=== PATIENT | male | born 1940 | race Caucasian/White ===

== ENCOUNTER 2016-05-15 07:24 | Day surgery (SDC) | payer MEDICARE ==
[~2016-05-15] VITALS: Ht 182.9 cm; Wt 76.7 kg
[~2016-05-15 07:24] MED LIST: ACETAMINOPHEN325 MG PO; BAYER CHEWABLE81 MG PO; CARDURA4 MG PO; CORDARONE200 MG PO; FLOMAX0.4 MG PO; FLORASTOR250 MG PO; GLUCOTROL ER2.5 MG PO; LOPRESSOR25 MG PO; MAG-OX 400 MG400 MG PO; NORVASC5 MG PO; OMNICEF300 MG PO; PACERONE200 MG PO; PREDNISONE10 MG PO; PREDNISONE20 MG PO; PREDNISONE50 MG PO; PROTONIX40 MG PO; PULMICORT0.5 MG/21 UPD; RENVELA0.8 GM PO; VITAMIN B-1000 MCG/M SC; VITAMIN B-1000 MCG/M SQ; VITAMIN D10000 UNI1 PO
[2016-05-15 08:27] LABS: BASOPHILS 0.2 % (0.0-2.0); EOSINOPHILS 3.9 % (0-7); HEMATOCRIT 40.3 % (42.0-54.0); IMMATURE GRANULOCYTES 0.3 % (0-5); LYMPHOCYTES 27.9 % (15-50); MCH 30.4 pg (26.0-34.0); MCHC 32.3 g/dL (31.0-37.0); MCV 94.2 fL (80.0-100.0); MEAN PLATELET VOLUME 9.3 fL (7.4-10.4); MONOCYTES 11.1 % (2-11); NEUTROPHILS 56.6 % (40-80); RBC 4.28 10x6/uL (4.20-6.10); RDW 14.5 % (11.5-14.5); WBC 9.5 10x3/uL (4.8-10.8)
[2016-05-15 08:28] LABS: PLATELET COUNT 254 10x3/uL (130-400)
[2016-05-15 08:43] LABS: INR 0.94 (0.85-1.17); PROTIME 12.4 SECONDS (11.6-15.0)
[2016-05-15 08:44] LABS: APTT 29.9 SECONDS (22.8-39.4)
[2016-05-15 08:52] LABS: CALCIUM 9.4 mg/dL (8.5-10.1); CARBON DIOXIDE 28.4 mmol/L (21.0-32.0); CREATININE - SERUM 5.2 mg/dL (0.6-1.3); POTASSIUM - SERUM 4.4 mmol/L (3.5-5.1)
[2016-05-15] MEDS ORDERED: RENVELA800 MG PO (12:29)
[2016-05-15 12:36] VITALS: BP 107/71; Ht 182.9 cm; Wt 76.7 kg
[2016-05-15] MEDS ORDERED: ULTRAM50 MG PO (17:27)
--- NOTE | 2016-05-15 17:33 | NUR ---
DR VILLELA ADVISED THE PATIENT COULD BE A SHORT STAY HE HAD A BLOCK AND WAS MAC ANESTHESIA
--- NOTE | 2016-05-17 07:35 | OP ---
PATIENT NAME: FABIEN DOWNEY MEDICAL RECORD: [id number] :38 LOCATION:[facility] ADMISSION DATE: SURGEON: JED NOEL MD DATE OF OPERATION: 05/15/2016 REFERRING PHYSICIAN: Dr. Zion Alcaraz. PREOPERATIVE DIAGNOSIS: End-stage renal disease, on dialysis. POSTOPERATIVE DIAGNOSIS: End-stage renal disease, on dialysis. OPERATION PERFORMED: Implantation of a right forearm loop Propaten PTFE AV graft 6-7 mm in diameter with a lumen reduction near the arterial anastomosis with a Hemoclip in order to reduce flow in the graft improving flow to the hand. SURGEON: Jed Noel MD. ANESTHESIA: Regional nerve block plus MAC per Dr. Machado and BACKER UP. PREOPERATIVE NOTE: Mr. Downey is a 75-year-old white male patient with end-stage renal disease, who requires dialysis access for long-term. He is brought to the ER this time to most likely implant a graft. Under axillary block and MAC in supine position, the patient was prepped and draped in a sterile manner. I examined him with an ultrasound device while using a proximal venous tourniquet and after application of nitroglycerin ointment topically, he had a very suitable basilic vein at the antecubital space and in the upper arm and I elected to put in a forearm loop PTFE graft. A transverse antecubital incision was made and the brachial artery and the basilic vein were each exposed and controlled with Silastic loops. The vein was opened, flushed with heparinized saline and a Propaten PTFE along graft of 4-mm up to 7-mm and 80 cm in length was chosen due to a lack of inventory. The venous end was beveled and anastomosed end-to-side to the vein with continuous running 7-0 Prolene after heparin flushing the vein. A counterincision was made distally on the forearm and the graft was placed in a subcutaneous looping tunnel and brought back to the antecubital space where it was shortened, cutting it in an area about 6 mm in diameter. It was bevelled and the artery occluded and opened, flushed with heparinized saline proximally and distally and the anastomosis then performed with continuous running 6-0 Prolene. When completed, both anastomoses were sealed with Evicel and when the occluding loops and clamps were released, excellent flow immediately developed within the fistula. Flow to the radial artery and hand; however, was considerably diminished when the graft was opened and I reduced the lumen of the graft near the arterial anastomosis with the application of a single size medium titanium Hemoclips. This significantly increased the radial artery pulsatile flow signal well, excellent continuous pulsatile flow was maintained within the graft. The wounds were irrigated and infiltrated with 0.25% Marcaine without epinephrine and closed with interrupted inverted 3-0 Vicryl and running intracuticular 4-0 Monocryl and Dermabond glue. They were dressed with Maxorb Ag, Tegaderm and Cavilon skin prep. The patient was then awakened and taken to the recovery room in stable condition. Blood loss was insignificant and unreplaced. All sponges, instruments and needles were accounted for. No drain was used and no surgical specimen was submitted for histopathology. OPERATIVE REPORT [id number] FABIEN DOWNEY I have the patient to return to see me in my office next week until then he is to leave the original operative dressing intact with continuous home medications, elevate his arm and generally resume his diet and activities as tolerated. I have left a prescription for ten 50 mg of Toradol tablets. He may take 1 p.o. q.4 hours p.r.n. pain for which plain Tylenol proves inadequate. TRANSINT:[id number] Voice Confirmation ID: [id number] DOCUMENT ID: [id number] JED NOEL MD at 0735 CC: ZION ALCARAZ MD [id number] DICTATION DATE: 05/15/16 1737 LINEN ROOM HOUSEPERSON: 05/16/16 0051 [facility] 05/15/[id number] [place] [address]
== END 2016-05-15 18:45 | disposition home or self-care (01) ==
LOC: D.OPS 07:24
PROVIDERS: Surgery
DX: N18.6 End stage renal disease (principal); Z79.01 Long term (current) use of anticoagulants; E11.9 Type 2 diabetes mellitus without complications

== ENCOUNTER 2016-10-13 06:26 | Day surgery (SDC) | payer MEDICARE ==
[~2016-10-13] VITALS: Ht 182.9 cm; Wt 81.8 kg
--- NOTE | ~2016-10-13 | OP ---
PATIENT NAME: FABIEN DOWNEY MEDICAL RECORD: [id number] :38 LOCATION:.[facility] ADMISSION DATE: SURGEON: JED NOEL MD DATE OF OPERATION: 10/13/2016 REFERRING PHYSICIAN: Steven Collazo MD PREOPERATIVE DIAGNOSES: End-stage renal disease, dependence on hemodialysis, and thrombosed left forearm loop PTFE AV graft. POSTOPERATIVE DIAGNOSES: End-stage renal disease, dependence on hemodialysis, and thrombosed left forearm loop PTFE AV graft with thrombosis secondary to venous anastomotic stenosis. OPERATIONS PERFORMED: Percutaneous fistulogram with mechanical thrombectomy with AngioJet, angioplasty balloon clot maceration, balloon angioplasty of venous anastomotic stenosis, selective left brachial arteriogram, and open brachial artery embolectomy. SURGEON: Jed Noel MD ANESTHESIA: General with LMA per SHIPPING HAND. PREOPERATIVE NOTE: Mr. Downey is a very nice 75-year-old white female patient from [place] with end-stage renal disease. He has a recently implanted and now thrombosed left forearm loop PTFE graft. He is taken to the operating room for fistulogram and mechanical thrombolysis and hopefully graft salvage. DESCRIPTION OF PROCEDURE: Under general anesthesia, in supine position, the patient was prepped and draped in sterile manner. The graft was accessed in opposing directions along the venous limb, initially with micropuncture technique and eventually two 6-Lib[place] introducers were placed. Thrombus in the venous limb was lysed with the AngioJet. Contrast injection demonstrated venous anastomotic stenosis. This was dilated successfully with an 8-mm angioplasty balloon. Repeated contrast injection revealed satisfactory result there. The angioplasty balloon was then used to macerate thrombus along the body and arterial limb of the graft. The AngioJet catheter was used to remove the residual. An angled glide catheter was advanced across the arterial anastomosis over a Glidewire. Contrast injection demonstrated thrombus embolized to the brachial artery, just distal to the arterial anastomosis. A Kalpana embolectomy catheter was passed. Attempts to remove thrombus from the distal brachial artery were unsuccessful, although the arterial plug was removed from the arterial anastomosis. Good arterial inflow and flow in the graft was then noted. Several attempts to remove the thrombus from the distal brachial artery were unsuccessful including direct cannulation attempt above the level of the elbow. I subsequently made a transverse incision and exposed the arterial graft anastomosis. The vessels were controlled with loops and vascular clamps. The graft was opened just above the previous suture line and thrombus was removed from the brachial artery with Kalpana embolectomy catheter. Good backbleeding was established. With the patient being systemically heparinized, the graft was then closed with running 6-0 Prolene. Hemostasis was found to be adequate. The patient had been heparinized with 3000 units of heparin. This was not reversed at the end of the procedure. The wound was closed with interrupted 3-0 Vicryl and running intracuticular Monocryl and Dermabond glue. It was dressed with Maxorb Ag, Tegaderm, and Cavilon skin prep. The AV graft was then functioning OPERATIVE REPORT [id number] FABIEN DOWNEY margo. The patient was awakened and taken to recovery room in stable condition. Blood loss was insignificant, probably 10 cc to 15 cc, none was replaced. All sponges, instruments, and needles were accounted for. No drain was used. Mr. Downey will be discharged today and he will continue dialysis per his usual schedule. He will follow up with me in my office on 10/22. He will continue his same medications and is to also take Plavix 75 mg daily and is also given a prescription for [place] 5 mg (hydrocodone/acetaminophen) tablets one q. 4 hours p.r.n. pain. TRANSINT:[id number] Voice Confirmation ID: [id number] DOCUMENT ID: [id number] JED NOEL MD CC: [id number] DICTATION DATE: 10/23/16948 AUTO BODY SERVICE MECHANIC: 10/23/16 1403 [facility] 10/13/16 [facility] [address] [place] [address]
[~2016-10-13 06:26] MED LIST changes: +RENVELA800 MG PO; +ULTRAM50 MG PO
--- NOTE | 2016-10-13 07:23 | NUR ---
0712-RECEIVED TO ROOM VIA WHEELCHAIR, NPO BY MOUTH AT THIS TIME. WILL ADMIT.
[2016-10-13 07:36] LABS: BASOPHILS 0.3 % (0-2); EOSINOPHILS 5.4 % (0-7); HEMATOCRIT 41.6 % (42.0-54.0); HEMOGLOBIN 13.3 g/dL (13.5-17.5); IMMATURE GRANULOCYTES 0.1 % (0-5); LYMPHOCYTES 21.4 % (15-50); MCH 32.1 pg (26.0-34.0); MCV 100.5 fL (80.0-100.0); MEAN PLATELET VOLUME 9.4 fL (7.4-10.4); MONOCYTES 11.8 % (2-11); PLATELET COUNT 217 10x3/uL (130-400); RBC 4.14 10x6/uL (4.20-6.10); WBC 7.6 10x3/uL (4.8-10.8)
[2016-10-13] MEDS ORDERED: LANOXIN125 MCG PO (07:47)
[2016-10-13] MEDS ORDERED: SYNTHROID75 MCG PO (07:49)
[2016-10-13 07:50] LABS: ANION GAP 24.1 mmol/L (8-16); CALCIUM 8.9 mg/dL (8.5-10.1); CARBON DIOXIDE 19.5 mmol/L (21.0-32.0); CREATININE - SERUM 9.7 mg/dL (0.6-1.3); POTASSIUM - SERUM 4.6 mmol/L (3.5-5.1)
[2016-10-13] MEDS ORDERED: FLOMAX0.4 MG PO (07:50)
[2016-10-13 08:12] VITALS: BP 144/72; BMI 24.5
[2016-10-13 08:12] LABS: INR 0.98 (0.85-1.17); PROTIME 12.8 SECONDS (11.6-15.0)
--- NOTE | 2016-10-13 08:29 | NUR ---
MED REC DONE. IV STARTED IN LEFT FOREARM WITH 20 G [address] ATTEMPT. ONLY ORDERS ARE FOR CONSULT WITH DR. NOEL. ATTEMPTED DR. NOEL'S CELL PHONE-NO ANSWER. HIS OFFICE NOTIFIED AND SPOKE TO TAMIA HIS NURSE. SHE WILL TEXT HIM AND HAVE HIM VISIT THE PT. PT REMAINS NPO. PT AND FAMILY INFORMED OF DR. NOEL'S VISIT. BOTH UNDERSTAND.
--- NOTE | 2016-10-13 09:27 | HP ---
PATIENT: FABIEN DOWNEY MEDICAL RECORD: [id number] ACCOUNT: [id number] LOCATION:[address] : 38 ADMISSION DATE: 10/13/16 HISTORY AND PHYSICAL EXAMINATION REASON FOR ADMISSION: Clotted AV graft. HISTORY OF PRESENT ILLNESS: This 75-year-old gentleman, who had a mechanical thrombectomy on September 14. It was a difficult procedure and difficult to sedate this gentleman and he is already clotted his graft again. He was not able to dialyze, 10/12/2016. I spoke with Dr. Maldonado. He is going to have the procedure performed as an inpatient for pain control as well as he may need IV access, may need an AV graft revision. REVIEW OF SYSTEMS: No shortness of breath, nausea, vomiting, or diarrhea. All review of systems are negative. PAST MEDICAL HISTORY: 1. ANCA crescentic glomerulonephritis with ANCA vasculitis, received 2 doses of Rituxan and prednisone. He has been on dialysis 3 days a week. 2. ESRD, on dialysis with near anuria. 3. Type 2 diabetes. 4. Hypertension. 5. Anemia of chronic disease. 6. Atrial fibrillation. 7. GERD. PAST SURGICAL HISTORY: Hemosplit catheter. FAMILY HISTORY: Noncontributory. SOCIAL HISTORY: He is , retired, lives with his and has good support. ALLERGIES: NKDA. PHYSICAL EXAMINATION: VITAL SIGNS: Blood pressure 132/72, 72 heart rate. GENERAL: He is alert and oriented times 3. HEENT: Normocephalic, atraumatic. Clear nares. Clear throat. NECK: No thyromegaly or JVD. CHEST: Irregular rhythm, S1 and S2, mild decreased breath sounds at his bases. EXTREMITIES: He has a right arm access with a clotted AV graft. ASSESSMENT AND PLAN: 1. Admit for AV graft, mechanical thrombectomy with Dr. Maldonado. 2. End-stage renal disease. 3. Appreciate Dr. Maldonado. TRANSINT:[id number] Voice Confirmation ID: [id number] DOCUMENT ID: [id number] HISTORY AND PHYSICAL [id number] FABIEN DOWNEY, ANIYA JONES at 0927 CC: [id number] DICTATION DATE: 10/12/16 1315 CANE FEEDER: 10/12/16 1354 ADM IN [facility] [address] [id number]
--- NOTE | 2016-10-13 09:39 | NUR ---
EKG DONE AND JOP PERMITS SIGNED.
[2016-10-13 10:29] VITALS: Ht 182.9 cm; Wt 81.8 kg
--- NOTE | 2016-10-13 10:40 | NUR ---
1040-TO OR VIA BED.
--- NOTE | 2016-10-13 12:15 | NUR ---
STILL OUT OF ROOM AT THIS TIME.
[2016-10-13] MEDS ORDERED: HYDROCODON-ACE1 EAC7 PO (15:02)
[2016-10-13] MEDS ORDERED: PLAVIX75 MG PO (15:03)
[2016-10-13 15:25] VITALS: BP 133/65
--- NOTE | 2016-10-13 15:28 | NUR ---
1530-RETURNS FROM RECOVERY ROOM ON 4L PER NC. STILL FEELING THE EFFECTS OF MEDS FROM SURGERY. WILL MONITOR.
--- NOTE | 2016-10-13 15:52 | NUR ---
POC GLUCOSE CHESKED PATIENT IS SHAKING. RESULT IS 59. JUSTINO CRACKERS, PEANUT BUTTER AND MILK GIVEN. PATIENT IS ALERT.
--- NOTE | 2016-10-13 16:12 | NUR ---
PATIENT IS RESTING QUITELY, NO SHAKING SEEN. FINISHED 2 CONTAINERS OF MILK, JUSTINO CRACKERS AND PEANUT BUTTER. STATES THAT HE IS FEELING BETTER.
--- NOTE | 2016-10-13 16:36 | NUR ---
I ADVISED PT AND SPOUSE THAT DR. NOEL WOULD TRY TO MAKE IT OVER TO SEE THEM PRIOR TO DISCHARGE IF HE FINISHES PROCEDURES. I ALSO ADVISED PT AND SPOUSE TO GO TO DIALYSIS TOMORROW PER DR. NOEL.
--- NOTE | 2016-10-13 17:06 | NUR ---
EATING SUPPER WITH 'S HELP. OXYGEN DECREASED TO 2L PER NC PATIENT DOES NOT WEAR IT AT HOME. WILL CONTINUE TO MONITOR VITAL SIGNS.
--- NOTE | 2016-10-13 17:11 | NUR ---
COPY OF WRITTEN/PRINTER OF NORCO 5/325 MG # 10 WITH NO REFILLS, TO TAKE 1 TAB EVERY 4 HOURS NEEDED FOR PAIN PLACED IN CHART. ORGINAL PLACED IN PATIENT PACKET TO BE GIVEN AT DISCHARGE.
--- NOTE | 2016-10-13 17:25 | NUR ---
O2 SAT IS 91 % ON 2L PER NC. ENCOURGED TO COUGH AND DEEP. WILL CONTINUE TO MONITOR.
--- NOTE | 2016-10-13 17:51 | NUR ---
SITTING ON SIDE OF BED, STILL ON 2L PER NC. NOW O2 SAT IS 99%. PLACED ON ROOM AIR AND WILL MONITOR IN 30 MIN.
--- NOTE | 2016-10-13 18:48 | NUR ---
1837-SALINE LOCK REMOVED WITH CATH TIP INTACT. VERBAL AND WRITTEN DISCHARGE INSTRUCTION GIVEN TO PATIENT AND . DISCHARGED HOME VIA WHEELCHAIR.
[2016-10-22] MEDS ORDERED: PROBIOTIC1 EAC1 PO (14:21)
== END 2016-10-13 18:49 | disposition home or self-care (01) ==
LOC: OBSVTIME → D.OPS 06:26 → D.M2 06:26 → D.SDCHOLD 06:26 → UNDOADMOB 06:26 → D.M2 07:06 → D.SDCHOLD 07:06 → EDSTATUS 11:00 → D.M2 18:49 → D.OPS 18:49
PROVIDERS: Internal Medicine Nephrology
DX: T82.868A Thrombosis due to vascular prosthetic devices, implants and grafts, initial encounter (principal); E11.22 Type 2 diabetes mellitus with diabetic chronic kidney disease; N18.6 End stage renal disease; Z99.2 Dependence on renal dialysis; E03.9 Hypothyroidism, unspecified; Z87.891 Personal history of nicotine dependence; I48.91 Unspecified atrial fibrillation; Z01.812 Encounter for preprocedural laboratory examination

== ENCOUNTER 2016-10-23 05:24 | Day surgery (SDC) | payer MEDICARE ==
[2016-10-22 14:58] LABS: BASOPHILS 0.6 % (0-2); EOSINOPHILS 4.8 % (0-7); HEMATOCRIT 43.3 % (42.0-54.0); HEMOGLOBIN 13.5 g/dL (13.5-17.5); IMMATURE GRANULOCYTES 0.3 % (0-5); LYMPHOCYTES 26.4 % (15-50); MCH 31.5 pg (26.0-34.0); MCHC 31.2 g/dL (31.0-37.0); MCV 101.2 fL (80.0-100.0); MEAN PLATELET VOLUME 9.6 fL (7.4-10.4); MONOCYTES 11.3 % (2-11); NEUTROPHILS 56.6 % (40-80); RBC 4.28 10x6/uL (4.20-6.10); WBC 8.7 10x3/uL (4.8-10.8)
[2016-10-22 15:02] LABS: PLATELET COUNT 274 10x3/uL (130-400)
[2016-10-22 15:04] LABS: APTT 30.1 SECONDS (22.8-39.4); INR 0.93 (0.85-1.17); PROTIME 12.3 SECONDS (11.6-15.0)
[2016-10-22 15:10] LABS: ANION GAP 14.8 mmol/L (8-16); CALCIUM 9.3 mg/dL (8.5-10.1); CARBON DIOXIDE 29.5 mmol/L (21.0-32.0); CREATININE - SERUM 7.1 mg/dL (0.6-1.3); POTASSIUM - SERUM 4.3 mmol/L (3.5-5.1)
[~2016-10-23] VITALS: Ht 182.9 cm; Wt 81.6 kg
--- NOTE | ~2016-10-23 | OP ---
PATIENT NAME: FABIEN DOWNEY MEDICAL RECORD: [id number] :38 LOCATION:[facility] ADMISSION DATE: SURGEON: JED NOEL MD DATE OF OPERATION: 10/23/2016 REFERRED BY: Aniya Winchester MD PREOPERATIVE DIAGNOSES: Recurrent thrombosis of recently implanted left forearm PTFE loop arteriovenous graft. POSTOPERATIVE DIAGNOSES: Recurrent thrombosis of recently implanted left forearm PTFE loop arteriovenous graft secondary to recurrent elastic venous anastomotic stenosis. OPERATION PERFORMED: Fistulogram with AngioJet mechanical thrombolysis and balloon angioplasty demonstrating recurrent elastic stenosis at the venous anastomosis, stenting with a 7 mm x 5 cm Viabahn PTFE self-expanding stent and a left brachial arteriogram, pre and post thrombectomy to eliminate the potential diagnosis of arterial embolism and arterial anastomotic stenosis. SURGEON: Jed Noel MD ANESTHESIA: General with LMA per RACE BOARD ATTENDANT. PREOPERATIVE NOTE: Mr. Downey is a very nice 75-year-old white male patient with end-stage renal disease, on chronic hemodialysis due to vasculitis. He is also diabetic and hypertensive patient. I recently operated him and implanted a left forearm loop PTFE graft, which thrombosed early and he was returned to the operating room only about a week or 10 days ago and had a mechanical thrombolysis procedure with angioplasty of the venous anastomosis. He had dialysis as recently as day before yesterday, been seen in my office for routine postoperative visit yesterday. I had thrombosed his graft. He is returned to the operating room now to perform yet another angiogram and hopefully salvage the access. He may require a tunneled dialysis catheter. Under general anesthesia in supine position, the patient was prepped and draped in sterile manner. The left arm graft was accessed twice in opposing directions along the venous limb of the loop graft, initially a 6-Citizen [place] introducer was inserted with micropuncture initiation technique later to facilitate stenting. An 8-Citizen [place] introducer was used replacing a single 6-[place]izen [place] introducer. The AngioJet was used to lyse thrombus in the venous limb and the anastomosis and outflow tract. The patient was given 3000 units of heparin systemically and contrast injection then revealed a recurrent venous anastomotic stenosis. This was subsequently dilated with an 8 mm diameter noncompliant balloon, which expanded to full effacement with very minimal pressures, repeated contrast injection that revealed a recurrent or persistent 80% elastic type stenosis in the vein or at the venous anastomosis. I then extended this with a 7-mm diameter 5 cm long Viabahn stent and repeated contrast injection showed no residual stenosis. The AngioJet was then used to remove thrombus from the body and arterial limb of the graft, an over the wire 5.5 Citizen [place] Kalpana embolectomy catheter was utilized to remove the arterial plug. A Glidewire was first though inserted and passed across the arterial anastomosis and a glide catheter inserted and passed up into the proximal brachial artery. Contrast injection was performed, which revealed good flow into the forearm with both radial and ulnar arteries were patent and no filling defects. Note, the patient did have a OPERATIVE REPORT [id number] FABIEN DOWNEY problem last time with brachial artery embolization, which required open thrombectomy. There was no sign of any flow impairment today. The angiogram was repeated after the thrombectomy was done. This revealed good flow in the brachial artery without persistence though diminished flow in the distal brachial artery and good flow in the graft without any arterial anastomotic stenosis. The graft now functioning well. The ports were removed and hemostasis was obtained with [id number] 4-0 Prolene sutures and direct pressure dressings of Avitene Ultrafoam, Tegaderm, and Cavilon skin prep were applied and the patient awakened and taken to the recovery room with a good thrill and bruit over the graft and a well vascularized hand. PLAN for Mr. Downey to go home today and to resume his usual dialysis schedule, home medications and diet. I considered, but did not place him on Plavix daily, but will see him back in my office next week. TRANSINT:[id number] Voice Confirmation ID: [id number] DOCUMENT ID: [id number] JED NOEL MD CC: ANIYA WINCHESTER MD [id number] DICTATION DATE: 10/23/16932 EQUIPMENT MONITOR PHOTOTYPESETTING: 10/23/16 1200 [facility] [address] [place] [address]
[~2016-10-23 05:24] MED LIST changes: +HYDROCODON-ACE1 EAC7 PO; +LANOXIN125 MCG PO; +PLAVIX75 MG PO; +PROBIOTIC1 EAC1 PO; +SYNTHROID75 MCG PO
[2016-10-23 06:14] VITALS: BP 112/77; Ht 182.9 cm; Wt 81.6 kg
--- NOTE | 2016-10-23 16:29 | NUR ---
1100--IV DC'D, PT UP TO DRESS. JUDD PERLA 1120--DISCHARGE INSTRUCTIONS GIVEN, PT VERBALIZES UNDERSTANDING. PT OFF UNIT VIA WC. JUDD PERLA
== END 2016-10-23 11:20 | disposition home or self-care (01) ==
LOC: D.OPS 05:24 → D.PAN 07:30 → D.OPS 07:30
PROVIDERS: Anesthesiology
DX: T82.868A Thrombosis due to vascular prosthetic devices, implants and grafts, initial encounter (principal); E11.22 Type 2 diabetes mellitus with diabetic chronic kidney disease; N18.6 End stage renal disease; E03.9 Hypothyroidism, unspecified; Z99.2 Dependence on renal dialysis; I48.91 Unspecified atrial fibrillation; Z01.812 Encounter for preprocedural laboratory examination

== ENCOUNTER → 2018-03-01 10:26 | Outpatient (CLI) | payer MEDICARE ==
[2016-10-23 06:14] VITALS: BMI 24.4
[~2018-03-01 10:26] MED LIST changes: +ELIQUIS2.5 MG PO
== END | disposition home or self-care (01) ==
LOC: D.RAD 10:26
DX: M25.551 Pain in right hip (principal)

== ENCOUNTER 2018-03-14 19:36 | Inpatient (IN) | payer MEDICARE ==
[~2018-03-14] VITALS: Ht 182.9 cm; Wt 80.7 kg
[~2018-03-14 19:36] MED LIST changes: -ELIQUIS2.5 MG PO
[2018-03-14 20:00] VITALS: BP 98/46
--- NOTE | 2018-03-14 20:20 | NUR ---
ARRIVED VIA WC, ESCORTED BY ER INDUSTRIAL DIAMOND POLISHER AND HIS . ALERT/ORIENTED X3. DENIES PAIN OR ANY NEEDS. SOME PICAYUNE NOTED. ENVIRONMENTAL RESTORATION PLANNER OBTAINED VS. TEMP 97.8, B/P 98/43. HR 93, RR 20, O2 SAT 97% ON 2L/NC. L ARM FISTULA WNL WITH POSITIVE BRUIT/THRILL. ORIENTED TO ROOM AND CALL LIGHT.
--- NOTE | 2018-03-14 20:20 | NUR ---
INFORMED DR SEGUNDO OF CONSULT VIA PHONE.
--- NOTE | 2018-03-14 21:25 | NUR ---
FINE WIRE DRAWER IN ROOM DRAWING BLOOD FOR LABS ORDERED.
[2018-03-14 21:44] LABS: BASOPHILS 0.3 % (0-2); EOSINOPHILS 0.3 % (0-7); HEMATOCRIT 33.5 % (42.0-54.0); HEMOGLOBIN 11.1 g/dL (13.5-17.5); IMMATURE GRANULOCYTES 0.3 % (0-5); MCH 31.8 pg (26.0-34.0); MCHC 33.1 g/dL (31.0-37.0); MEAN PLATELET VOLUME 9.2 fL (7.4-10.4); MONOCYTES 12.9 % (2-11); NEUTROPHILS 71.2 % (40-80); RBC 3.49 10x6/uL (4.20-6.10); RDW 13.3 % (11.5-14.5); WBC 7.6 10x3/uL (4.8-10.8)
[2018-03-14 21:47] LABS: PLATELET COUNT 202 10x3/uL (130-400)
[2018-03-14 22:04] LABS: ALBUMIN 2.9 g/dL (3.4-5.0); ANION GAP 14.6 mmol/L (8-16); BILIRUBIN - TOTAL 0.93 mg/dL (0.2-1.3); CALCIUM 7.8 mg/dL (8.5-10.1); CARBON DIOXIDE 26.7 mmol/L (21.0-32.0); CREATININE - SERUM 5.3 mg/dL (0.6-1.3); POTASSIUM - SERUM 3.3 mmol/L (3.5-5.1); PROTEIN - SERUM 7.4 g/dL (6.4-8.2)
--- NOTE | 2018-03-14 23:00 | NUR ---
IV SITED IN LEFT FA WITH 2OG. IVF STARTED PER ORDER.
[2018-03-15] VITALS (7 sets, daily range): BP systolic 98–136; BP diastolic 46–85; Ht 182.9 cm; Wt 80.7 kg
[2018-03-15] MEDS ORDERED: ELIQUIS2.5 MG PO (04:01)
--- NOTE | 2018-03-15 06:00 | NUR ---
OBTAIN URINE SAMPLE FOR LAB ORDERED.
--- NOTE | 2018-03-15 06:30 | NUR ---
URINE SAMPLE TAKEN TO LAB BY ANOTHER NURSE.
[2018-03-15 08:57] LABS: APPEARANCE CLOUDY (CLEAR); BILIRUBIN 2+ (NEGATIVE); COLOR DK YELLOW (YELLOW); GLUCOSE 100 mg/dL (NEGATIVE); KETONE NEGATIVE (NEGATIVE); NITRITE NEGATIVE (NEGATIVE); PROTEIN 2+ mg/dL (NEGATIVE); SPECIFIC GRAVITY 1.015 (1.005-1.020); UROBILINOGEN NORMAL (NORMAL)
[2018-03-15 08:59] LABS: BACTERIA MODERATE /hpf (NONE SEEN); EPITHELIAL CELLS OCC /hpf (0-5); GRANULAR CAST OCC /lpf (NONE SEEN); HYALINE CAST RARE /lpf (NONE SEEN); RED CELLS - URINE 0-5 /hpf (0-5); WHITE CELLS - URINE >50 /hpf (0-5); YEAST >1+ WITH HYPHAE /hpf (NONE SEEN)
--- NOTE | 2018-03-15 18:16 | HP ---
PATIENT: FABIEN DOWNEY MEDICAL RECORD: [id number] ACCOUNT: [id number] LOCATION:[address] : 38 ADMISSION DATE: 03/15/18 PCP: CORBY BATEMAN DO HISTORY AND PHYSICAL EXAMINATION HISTORY: Mr. Downey is a 77-year-old white male that presents to the office today with fever of 103. Family reports he has just not been feeling well for the last week or two. He is a dialysis patient, and when he got out of dialysis today, his family brought him here to [place] to be seen here in the office. He has a fever of 103. He looks moderately ill. His chest x-ray reveals no definite infiltrates. His flu test is negative. His white count is 7 with 80% neutrophils. I am unable to get a urine specimen today, but due to his other medical complications and fever of 103, he is going to require hospitalization. Orders are with the patient. PAST MEDICAL HISTORY: Significant for end-stage renal disease. His ancillary services manager is Dr. Collazo. He dialyzes on Mondays, Wednesdays, and Fridays. He has got type 2 diabetes, hyperlipidemia, and osteoarthritis. PAST SURGICAL HISTORY: Previous surgeries include venous access for dialysis. ALLERGIES: None known. HOME MEDICATIONS: Include levothyroxine 100 mcg a day, sevelamer carbonate 800 three tablets 3 times a day, Eliquis 2.5 twice a day, glipizide ER one tablet twice a day, digoxin 125 mcg daily, tizanidine 4 mg p.r.n., pantoprazole 40 mg daily, Plavix 75 mg a day, tamsulosin 0.4 daily, and tramadol p.r.n. FAMILY HISTORY: Noncontributory. SOCIAL HISTORY: The patient is . He does not smoke and does not drink. REVIEW OF SYSTEMS: He is a little confused this afternoon. reports cough and fever that started yesterday. He has had increasing weakness over the last week and has required assistance on getting up. PHYSICAL EXAMINATION: VITAL SIGNS: His height is 5 feet 6 inches and weight is 168. BP is 152/88. His initial pulse ox on room air is 87%. It went up to 93% with oxygen. Pulse is 130 and respirations are 12. GENERAL: An elderly, chronically ill-appearing male, who is in a wheelchair at this time. He is very conversant, but really does not make much sense. He is in no apparent distress at this time. HEENT: Sclerae are nonicteric. Mucous membranes are moist. HEART: Regular and tachy. LUNGS: Relatively clear. ABDOMEN: Soft. EXTREMITIES: Lower extremities reveal no edema. IMPRESSION: 1. Febrile illness with fever of 103. 2. Hypoxia with 87% pulse ox on room air and negative chest x-ray, negative flu, normal white count. 3. History of UTIs in the past. UA is pending. 4. End-stage renal disease, on dialysis. HISTORY AND PHYSICAL [id number] FABIEN DOWNEY 5. Diabetes. 6. Hyperlipidemia. 7. Osteoarthritis. PLAN: Admit. We will get blood cultures and urine cultures, and start Levaquin 750 q. 48. Consult his ancillary services manager, Dr. Collazo, for further care. Other labs are drawn. I have switched over to a sliding scale for now. See orders for rest of plan. TRANSINT:[id number] Voice Confirmation ID: [id number] DOCUMENT ID: [id number] CORBY BATEMAN DO at 1816 CC: [id number] DICTATION DATE: 03/14/18 1755 SPACE AND MISSILE OPERATIONS: 03/14/18 1829 ADM IN [address] [id number] [place] [address]
--- NOTE | 2018-03-15 19:25 | NUR ---
PT LAYING IN BED ALERT AND ORIENTED RESPIRATIONS EVEN AND UNLABORED. PT AT BEDSIDE. PT USES WALKER TO AMBULATE. BED LOW CALL LIGHT WITHIN REACH WILL CONTINUE TO MONITOR.
--- NOTE | 2018-03-15 20:30 | NUR ---
PT SITTING UP ON THE SIDE OF BED COMPLAINING OF 8/10 PAIN IN LOWER BACK. PT REQUEST TYLENOL FOR PAIN. AT BEDSIDE.
[2018-03-16] VITALS: BP 96/44
--- NOTE | 2018-03-16 03:17 | NUR ---
PT RESTING IN BED WITH EYES CLOSED RESPIRATIONS EVEN AND UNLABORED. BED LOW CALL LIGHT WITHIN REACH, AT BEDSIDE. WILL CONTINUE TO MONITOR.
--- NOTE | 2018-03-16 03:38 | NUR ---
PT RESTING IN BED, ALERT. FAMILY AT BEDSIDE. PT ON 2L O2 NC. HAS D5NS INFUSING AT 50, PT IS [place], DENIES ANY NEEDS. NO S/S OF DISTRESS. PT WILL CALL FOR ASSIST WHEN NEEDED. WILL CPOC
--- NOTE | 2018-03-16 03:40 | NUR ---
PT RESTING IN BED WITH EYES CLOSED. RR-EVEN AND UNLABORED. FAMILY AT BEDSIDE. BED LOW CALL LIGHT WITHIN REACH. WILL CONTINUE TO MONITOR.
[2018-03-16 04:00] VITALS: BP 126/45
[2018-03-16 06:14] LABS: BASOPHILS 0.2 % (0-2); EOSINOPHILS 3.2 % (0-7); HEMATOCRIT 29.4 % (42.0-54.0); HEMOGLOBIN 9.5 g/dL (13.5-17.5); LYMPHOCYTES 17.3 % (15-50); MCH 30.8 pg (26.0-34.0); MCHC 32.3 g/dL (31.0-37.0); MCV 95.5 fL (80.0-100.0); MEAN PLATELET VOLUME 9.1 fL (7.4-10.4); MONOCYTES 14.7 % (2-11); NEUTROPHILS 64.6 % (40-80); PLATELET COUNT 175 10x3/uL (130-400); RBC 3.08 10x6/uL (4.20-6.10); RDW 13.3 % (11.5-14.5)
[2018-03-16 06:23] LABS: ALBUMIN 2.4 g/dL (3.4-5.0); ANION GAP 17.4 mmol/L (8-16); BILIRUBIN - TOTAL 0.46 mg/dL (0.2-1.3); CALCIUM 7.9 mg/dL (8.5-10.1); CARBON DIOXIDE 23.8 mmol/L (21.0-32.0); POTASSIUM - SERUM 3.2 mmol/L (3.5-5.1); PROTEIN - SERUM 6.5 g/dL (6.4-8.2)
[2018-03-16 06:25] LABS: CREATININE - SERUM 7.2 mg/dL (0.6-1.3)
--- NOTE | 2018-03-16 07:36 | NUR ---
REPORT RECEIVED. WILL CONTINUE WITH POC. PT CURRENTLY SITTING ON EDGE OF BED. CALL LIGHT W/I REACH. AT BEDSIDE. PT IS AAO X4 AND UP WITH ASSIST. RR EVEN AND UNLABORED ON 2L 02. D5W INFUSING @50ML/HR VIA L.FOR PIV. PT DENIES ANY NEEDS AT THIS TIME. WILL CTM.
[2018-03-16 08:22] VITALS: BP 116/55
--- NOTE | 2018-03-16 09:56 | NUR ---
RESP UL ON . IV PATENT. AT BS. CALL LIGHT IN REACH. WILL CONT. PLAN OF CARE.
[2018-03-16 11:59] VITALS: BP 119/58
[2018-03-16 17:24] VITALS: BP 121/56
--- NOTE | 2018-03-16 17:54 | NUR ---
Dialysis Coordinator: LYNDON [facility] MWF. RADHA JOHN.
--- NOTE | 2018-03-16 19:45 | NUR ---
INTRODUCED SELF TO PATIENT, PATIENT HAD AT BESIDE. PATIENT MENTIONED POSSIBLY NOT GOING TO DIALYSIS TOMORROW. I EDUCATED PATIENT THAT HE WOULD BE GOING THREE DAYS WITHOUT IT AND AT THAT POINT COULD BE DETRIMENTAL TO HIM. WAS LEAVING TO GO GET FOOD, PATIENT UP ON SIDE OF BED. BED IN LOWEST POSITION, CALL LIGHT WITHIN REACH. NO NEEDS AT THIS TIME.
[2018-03-16 20:10] VITALS: BP 119/54
--- NOTE | 2018-03-16 20:40 | NUR ---
INFUSING LEVAQUIN, AT BEDSIDE. HELPED PATIENT TO BED, BED IN LOWEST POSITION CALL LIGHT WITHIN REACH. NO INSULIN COVERAGE FSBS 116. NO NEEDS AT THIS TIME.
--- NOTE | 2018-03-17 01:11 | NUR ---
SALINE LOCKED PATIENT AFTER INFUSION FINISHED SO PATIENT COULD GO TO BED, PATIENT RESTING QUIETLY WITH EYES CLOSED, RESTING QUIETLY IN CHAIR NEXT TO HIM. BED IN LOWEST POSITION, CALL LIGHT IN REACH.
[2018-03-17 04:00] VITALS: BP 121/52
--- NOTE | 2018-03-17 06:16 | NUR ---
PATIENT TOOK MORNING MEDS W/O DIFFICULTY, BED IN LOWEST POSITION, CALL LIGHT IN REACH. AT BEDSIDE. RESP EVEN AND UNLABORED. NO NEEDS AT THIS TIME.
[2018-03-17 06:26] LABS: HEMATOCRIT 30.1 % (42.0-54.0); HEMOGLOBIN 9.9 g/dL (13.5-17.5); MCH 31.4 pg (26.0-34.0); MCHC 32.9 g/dL (31.0-37.0); MCV 95.6 fL (80.0-100.0); MEAN PLATELET VOLUME 9.7 fL (7.4-10.4); PLATELET COUNT 206 10x3/uL (130-400); RBC 3.15 10x6/uL (4.20-6.10); RDW 13.3 % (11.5-14.5); WBC 5.9 10x3/uL (4.8-10.8)
[2018-03-17 07:16] LABS: LYMPHOCYTES 20 % (15-50); MONOCYTES 8 % (2-11); NEUTROPHILS 61 % (40-80); PLATELET ESTIMATE NORMAL
--- NOTE | 2018-03-17 07:20 | NUR ---
ROUNDING DONE WITH PATIENT SITTING ON SIDE OF BED, DRESSED IN STREET CLOTHES AWAITING MRI THIS AM. SALINE LOCK PIV SEEN TO LEFT FA. RIGHT ARM FISTULA WITH + BRUIT AND THRILL. AT BEDSIDE. WALKER IN USE. WILL MONITOR,.
--- NOTE | 2018-03-17 07:40 | NUR ---
TO DIALYSIS VIA BED.
[2018-03-17 09:04] LABS: ALBUMIN 2.4 g/dL (3.4-5.0); ANION GAP 18.4 mmol/L (8-16); BILIRUBIN - TOTAL 0.4 mg/dL (0.2-1.3); CALCIUM 7.8 mg/dL (8.5-10.1); CREATININE - SERUM 7.4 mg/dL (0.6-1.3); DIGOXIN 0.26 ng/mL (0.90-2.00); PHOSPHOROUS 3.2 mg/dL (2.5-4.9); POTASSIUM - SERUM 3.4 mmol/L (3.5-5.1); PROTEIN - SERUM 6.3 g/dL (6.4-8.2); THYROID STIMULATING HORMONE 3.21 uIU/mL (0.36-3.74)
--- NOTE | 2018-03-17 12:43 | NUR ---
STILL OFF FLOOR, WENT FROM DIALYSIS TO MRI I WAS TOLD.
--- NOTE | 2018-03-17 13:34 | NUR ---
PATIENT IS WRAPPED UP IN A BLANKET ASLEEP. RESP ARE EVEN, EYES CLOSED. IS ASLEEP IN THE CHAIR.
--- NOTE | 2018-03-17 15:13 | NUR ---
PATIENT IS RESTING WITH EYES CLOSED, RESP ARE EVEN. SPOUSE IS ASLEEP IN CHAIR. WILL CONTINUE TO MONITOR. BED ALARM IS ON AND IN USE.
[2018-03-17] MEDS ORDERED: LEVOFLOXACIN500 MG PO (15:45)
--- NOTE | 2018-03-17 17:19 | NUR ---
I INFORMED THAT WE HAD DISCHARGE ORDERS. THE IS VERY CONCERNED ABOUT TAKING HIM HOME TONIGHT. SINCE PATIENT HAS BEEN BACK FROM DIALYSIS HE IS "TALKING OUT OF HIS HEAD" PER THE . HE IS VERY WEAK. PAGE INTO [facility] TO SEE ABOUT HOLDING DISCHARGE UNTIL TOMORROW.
--- NOTE | 2018-03-17 17:32 | NUR ---
NEW ORDERS FROM [facility] TO CANCEL DISCHARGE FOR THIS EVENING.
[2018-03-17 17:44] VITALS: BP 109/63
--- NOTE | 2018-03-17 19:05 | NUR ---
INTRODUCED SELF TO PATIENT, AT BEDSIDE. PATIENT LYING ON LEFT SIDE WATCHING TV. BED IN LOWEST POSITION, CALL LIGHT IN REACH.
[2018-03-17 20:00] VITALS: BP 121/69
[2018-03-18 00:36] VITALS: BP 96/44
[2018-03-18 04:00] VITALS: BP 102/42
[2018-03-18 04:00] LABS: BASOPHILS 0.3 % (0-2); EOSINOPHILS 1.9 % (0-7); HEMATOCRIT 31.1 % (42.0-54.0); HEMOGLOBIN 10.1 g/dL (13.5-17.5); IMMATURE GRANULOCYTES 0.2 % (0-5); LYMPHOCYTES 24.5 % (15-50); MCH 31.3 pg (26.0-34.0); MCHC 32.5 g/dL (31.0-37.0); MCV 96.3 fL (80.0-100.0); MEAN PLATELET VOLUME 9.2 fL (7.4-10.4); NEUTROPHILS 58.1 % (40-80); PLATELET COUNT 193 10x3/uL (130-400); RBC 3.23 10x6/uL (4.20-6.10); RDW 13.1 % (11.5-14.5); WBC 5.8 10x3/uL (4.8-10.8)
[2018-03-18 04:16] LABS: ALBUMIN 2.5 g/dL (3.4-5.0); ANION GAP 15.5 mmol/L (8-16); BILIRUBIN - TOTAL 0.53 mg/dL (0.2-1.3); CARBON DIOXIDE 25.9 mmol/L (21.0-32.0); CREATININE - SERUM 6.3 mg/dL (0.6-1.3); PHOSPHOROUS 3.5 mg/dL (2.5-4.9); POTASSIUM - SERUM 3.4 mmol/L (3.5-5.1); PROTEIN - SERUM 6.7 g/dL (6.4-8.2)
--- NOTE | 2018-03-18 04:31 | NUR ---
SENIOR PROCESS ENGINEER AT THE BEDSIDE GETTING VITALS, PATIENT RESTING QUIETLY WITH AT BEDSIDE RESTING. BED IN LOWEST POSITION, CALL LIGHT IN REACH.
--- NOTE | 2018-03-18 06:34 | NUR ---
PATIENT TOOK MORNING MEDS W/O DIFFICULTY, FSBS 79 ENCOURAGED TO DRINK SODA AT BEDSIDE OR SMALL SNACK. BED IN LOWEST POSITION, CALL LIGHT IN REACH. RESP EVEN AND UNLABORED.
--- NOTE | 2018-03-18 07:30 | NUR ---
RECEIVED A/A/OX4. NO CONFUSION NOTED. DENIES ANY PAIN OR DISCOMFORT AND NO REQUESTS VOICED. BED IN LOWEST POSITION, SIDERAILS UP X 2 AND CALL LIGHT IN REACH. ASSESSMENT COMPLETED. WILL CONTINUE POC.
[2018-03-18 07:49] VITALS: BP 115/60
--- NOTE | 2018-03-18 09:43 | NUR ---
RESTS WITH EYES CLOSED. RESP UL ON . AT BS. CALL LIGHT IN REACH.
--- NOTE | 2018-03-18 11:32 | MORECARE ---
CASE MANAGEMENT DISCHARGE SUMMARY PATIENT: FABIEN DOWNEY UNIT: [id number] ADM DATE: 03/15/18 AGE: 77 : 38 SEX: M ROOM/BED: D.2101 AUTHOR: HERMILO RIZO PHYSICIAN: REFERRING PHYSICIAN: SILVIA GALINDO DO DATE OF SERVICE: 03/18/18 Discharge Plan Patient Name: FABIEN DOWNEY [facility] [facility] 1940 Planned Disposition: Home Anticipated Discharge Date: 03/18/18 Discharge Date: Expected LOS: 3 Initial Reviewer: [id number] Initial Review Date: 03/18/2018 Generated: 03/18/18 12:32 pm Coverage Notice Reviewer: [id number] Nkechi Ross Notice Issued Date-Time: 03/15/2018 14:52 Notice Type: Medicare Outpatient Observation Notice Notice Delivered To: Family Member Relationship to Patient: Spouse Scrap Kettle Tender Name: EUFEMIA DOWNEY, Delivery Method: HAND - Hand Delivered Mercy Days: Prior Verbal Notification: Recipient Understood Notice: Yes Recipient Signature: Yes Med Rec Note Co-signed by Attending: Coverage Notice Comment: PT VERY HARD OF HEARING AND COULD NOT UNDERSTAND MY SPEAKING. PT POINTED TO HIS , AND HIS STATED UNDERSTANDING AND SIGNED PER PTS REQUEST. Reviewer: [id number] - Porfirio Moe Notice Issued Date-Time: 03/18/2018 10:45 Notice Type: IM Discharge Notice Notice Delivered To: Patient Relationship to Patient: Scrap Kettle Tender Name: Delivery Method: HAND - Hand Delivered Mercy Days: Prior Verbal Notification: Recipient Understood Notice: Yes Recipient Signature: Yes Med Rec Note Co-signed by Attending: Coverage Notice Comment: Patient Name: FABIEN DOWNEY Page [phone] at 1132 All edits/amendments must be made on the electronic document DICTATION DATE: 03/18/18 1131 HEALTHCARE ANALYST: BRONWYN 03/18/18 1131 RPT#: [id number] DC DATE: STATUS: ADM IN [facility] [address] [place] [address] END OF REPORT
--- NOTE | 2018-03-18 11:39 | MORECARE ---
CASE MANAGEMENT DISCHARGE SUMMARY PATIENT: FABIEN DOWNEY UNIT: [id number] ADM DATE: 03/15/18 AGE: 77 : 38 SEX: M ROOM/BED: D.2101 AUTHOR: HERMILO RIZO PHYSICIAN: REFERRING PHYSICIAN: SILVIA GALINDO DO DATE OF SERVICE: 03/18/18 Discharge Plan Patient Name: FABIEN DOWNEY Facility: [facility]:[place] : 1940 Planned Disposition: Home Anticipated Discharge Date: 03/18/18 Discharge Date: Expected LOS: 3 Initial Reviewer: [email or web address] Initial Review Date: 03/18/2018 Generated: 03/18/18 12:39 pm DCPIA - Discharge Planning Initial Assessment Updated by [email or web address]: Porfirio Rosa on 03/18/18 11:37 am * Is the patient Alert and Oriented? Yes * How many steps to enter\exit or inside your home? 0-O / 2-I * PCP DR. BATEMAN * [facility] [place] * Preadmission Environment Home with Family * ADLs Partial Dependent * Partial ADLs (Assistance needed) Bathing Medication Management Transfers * Equipment Hospital Bed Other Oxygen Walker Wheelchair * Other Equipment HOME OXGYGEN ONLY LIFT CHAIR [facility] - MEDICAL EQUIPMENT PROVIDER * List name and contact numbers for known caregivers / representatives who currently or will assist patient after discharge: HARVINDER DOWNEY, SPOUSE, AHSAN DOWNEY, SON, WASHINGTON DOWNEY, SON, * Verbal permission to speak to the caregivers and representatives has been obtained from the patient. N/A * Community resources currently utilized Other * Please name any agencies selected above. OUTPATIENT DIALYSIS, [facility], MWF, 1000AM, [facility] * Can the patient safely return to the preadmission environment? Yes * Has this patient been hospitalized within the prior 30 days at any hospital? No Coverage Notice Reviewer: [id number] Nkechi Ross Notice Issued Date-Time: 03/15/2018 14:52 Notice Type: Medicare Outpatient Observation Notice Notice Delivered To: Family Member Relationship to Patient: Spouse Web Application Dev Specialist Name: EUFEMIA DOWNEY, Delivery Method: HAND - Hand Delivered Mercy Days: Prior Verbal Notification: Recipient Understood Notice: Yes Recipient Signature: Yes Med Rec Note Co-signed by Attending: Coverage Notice Comment: PT VERY HARD OF HEARING AND COULD NOT UNDERSTAND MY SPEAKING. PT POINTED TO HIS , AND HIS STATED UNDERSTANDING AND SIGNED PER PTS REQUEST. Reviewer: [id number] - Porfirio Diegowell Notice Issued Date-Time: 03/18/2018 10:45 Notice Type: IM Discharge Notice Notice Delivered To: Patient Relationship to Patient: Web Application Dev Specialist Name: Delivery Method: HAND - Hand Delivered Mercy Days: Prior Verbal Notification: Recipient Understood Notice: Yes Recipient Signature: Yes Med Rec Note Co-signed by Attending: Coverage Notice Comment: Last DP export: 03/18/18 10:32 am Patient Name: FABIEN DOWNEY Page [phone] at 1139 All edits/amendments must be made on the electronic document DICTATION DATE: 03/18/181138 EXTENSION WORKER: BRONWYN 03/18/18 1139 RPT#: [id number] DC DATE: STATUS: ADM IN [facility] [address] [place] [address] END OF REPORT
--- NOTE | 2018-03-18 11:48 | MORECARE ---
CASE MANAGEMENT DISCHARGE SUMMARY PATIENT: FABIEN DOWNEY UNIT: [id number] ADM DATE: 03/15/18 AGE: 77 : 38 SEX: M ROOM/BED: D.2101 AUTHOR: SALLIE,DOC PHYSICIAN: REFERRING PHYSICIAN: SILVIA GALINDO DO DATE OF SERVICE: 03/18/18 Discharge Plan Patient Name: FABIEN DOWNEY Facility: [facility]:[place] : 1940 Planned Disposition: Home Anticipated Discharge Date: 03/18/18 Discharge Date: Expected LOS: 3 Initial Reviewer: [email or web address] Initial Review Date: 03/18/2018 Generated: 03/18/18 12:48 pm Comments DCP- Discharge Planning Updated by [email or web address]: Porfirio Moody on 03/18/18 10:[address] Patient Name: FABIEN DOWNEY Admission Status: Elective Accout number: [id number] Admission Date: 03-15-2018 : 1940 Admission Diagnosis: Attending: SILVIA GALINDO Current LOS: 3 Anticipated DC Date: 03-18-2018 Planned Disposition: Home Primary Insurance: [facility] MEDIC[facility] SOLUTIONS Discharge Planning Comments: CM MET WITH PTPS SPOUSE IN ROOM TO DISCUSS DISCHARGE PLANNING AND NEEDS. PT GONE TO DIALYSIS. PT'S SPOUSE REPORTS PT LIVING AT HOME DEPENDENT FOR MEDICATION MANAGEMENT, TRANSFERS AND BATHING WHEN NOT DOING WELL. PT'S SPOUSE REPORTS THAT THEY HAVE MANY FAMILY MEMBERS LIVING CLOSEBY THAT SHE CAN DEPEND ON TO COME OVER AND ASSIST IF NEEDED WITH PT AT HOME. PT HAS HOSPITAL BED, LIEFT CHAIR, WALKER AND WHEELCHAIR; PT HAS HOME OXYGEN THAT PT HAS NEVER USED FROM [facility] ALONG WITH [facility] FOR EMERGENCY USE. PT HAS NO OUTSIDE SERVICES ASSISTING IN THE HOME. CM DISCUSSED AVAILABILITY OF HOME HEALTH, REHAB SERVICES AND MEDICAL EQUIPMENT. PT'S SPOUSE DENIES DISCHARGE NEEDS OTHER THAN PORTABLE OXYGEN, DENIES NEED OF REHAB SERVICES, HOME HEALTH OR ADDITIONAL MEDICAL EQUIPMENT. PT'S SPOUSE IS HERE AND WILL PICK PT UP FOR DISCHARGE HOME. IMPORTANT MESSAGE FROM MEDICARE PROVIDED AND EXPLAINED. CM CALLED [facility], , VERIFIED WITH URSZULA THAT PT HAS HOME OXYGEN SERVICES ALREADY. CM WAITING OXYGEN TESTING TO DETEMINE IF PT NEEDS PORTABLE OXYGEN SERVICES AT HOME. CM TO ARRANGE PORTABLE OXYGEN WITH [facility] IF PT HAS QUALIFIED TESTING RESULT. Community Health Outreach Worker: Porfirio Moody Appended by Porfirio Moody on 03/18/2018 11:44 BEATER DUMPER: PHYSICAL DISCHARGE ADDRESS IS [address] [place] [address]. [id number]. PORFIRIO MOODY, CASE MANAGEMENT DCPIA - Discharge Planning Initial Assessment Updated by [id number]: Porfirio Moody on 03/18/18 11:37 am * Is the patient Alert and Oriented? Yes * How many steps to enter\exit or inside your home? 0-O / 2-I * PCP DR. BATEMAN * [facility] [place] * Preadmission Environment Home with Family * ADLs Partial Dependent * Partial ADLs (Assistance needed) Bathing Medication Management Transfers * Equipment Hospital Bed Other Oxygen Walker Wheelchair * Other Equipment HOME OXGYGEN ONLY LIFT CHAIR [facility] - MEDICAL EQUIPMENT PROVIDER * List name and contact numbers for known caregivers / representatives who currently or will assist patient after discharge: HARVINDER SHAYAN, SPOUSE, AHSAN HOWARDWELL, SON, WASHINGTON DOWNEY, SON, * Verbal permission to speak to the caregivers and representatives has been obtained from the patient. N/A * Community resources currently utilized Other * Please name any agencies selected above. OUTPATIENT DIALYSIS, [facility], MWF, 1000AM, [facility] * Can the patient safely return to the preadmission environment? Yes * Has this patient been hospitalized within the prior 30 days at any hospital? No Coverage Notice Reviewer: [id number] Nkechi Sheyla Hopkins Notice Issued Date-Time: 03/15/2018 14:52 Notice Type: Medicare Outpatient Observation Notice Notice Delivered To: Family Member Relationship to Patient: Spouse Wire Machine Operator Name: EUFEMIA DOWNEY, Delivery Method: HAND - Hand Delivered Mercy Days: Prior Verbal Notification: Recipient Understood Notice: Yes Recipient Signature: Yes Med Rec Note Co-signed by Attending: Coverage Notice Comment: PT VERY HARD OF HEARING AND COULD NOT UNDERSTAND MY SPEAKING. PT POINTED TO HIS , AND HIS STATED UNDERSTANDING AND SIGNED PER PTS REQUEST. Reviewer: [id number] Nkechi Moody Notice Issued Date-Time: 03/18/2018 10:45 Notice Type: IM Discharge Notice Notice Delivered To: Patient Relationship to Patient: Wire Machine Operator Name: Delivery Method: HAND - Hand Delivered Mercy Days: Prior Verbal Notification: Recipient Understood Notice: Yes Recipient Signature: Yes Med Rec Note Co-signed by Attending: Coverage Notice Comment: Last DP export: 03/18/18 10:39 am Patient Name: FABIEN DOWNEY Page [phone] at 1148 All edits/amendments must be made on the electronic document DICTATION DATE: 03/18/18 1148 FINANCING ANALYST: BRONWYN 03/18/18 1148 RPT#: [id number] DC DATE: STATUS: ADM IN [facility] [address] [place] [address] END OF REPORT
--- NOTE | 2018-03-18 12:41 | NUR ---
Nutrition Follow Up: Chart reviewed Diet: Renal ADA PO Intake: 50% meal avg BM: 03/14/18 Meds and labs reviewed Rec continue current diet. RD following.
--- NOTE | 2018-03-18 12:56 | NUR ---
RECEIVED ORDER FOR WALK TEST FOR HOME 02 PER DOCTOR MATEO. TOOK PT OFF OF 02 WAITED 15 MINUTES, PT 02 SATURATION 96%. GOT PT OUT OF BED TO WALK AROUND, PT WALKED TO OPPOSITE SIDE OF THE BED AND COMPLAINED OF WEAKNESS AND HE CAN NOT WALK VERY FAR. INFORMED NURSE OCHOA OF SITUATION. PLACED O2 AT 2L BACK ON PT.
--- NOTE | 2018-03-18 14:19 | MORECARE ---
CASE MANAGEMENT DISCHARGE SUMMARY PATIENT: FABIEN DOWNEY UNIT: [id number] ADM DATE: 03/15/18 AGE: 77 : 38 SEX: M ROOM/BED: D.2101 AUTHOR: SALLIE,DOC PHYSICIAN: REFERRING PHYSICIAN: SILVIA GALINDO DO DATE OF SERVICE: 03/18/18 Discharge Plan Patient Name: FABIEN DOWNEY Facility: [facility]:[place] : 1940 Planned Disposition: Home Anticipated Discharge Date: 03/18/18 Discharge Date: Expected LOS: 3 Initial Reviewer: [email or web address] Initial Review Date: 03/18/2018 Generated: 03/18/18 3:19 pm Comments DCP- Discharge Planning Updated by [email or web address]: Porfirio Moody on 03/18/18 10:[address] Patient Name: FABIEN DOWNEY Admission Status: Elective Accout number: [id number] Admission Date: 03-15-2018 : 1940 Admission Diagnosis: Attending: SILVIA GALINDO Current LOS: 3 Anticipated DC Date: 03-18-2018 Planned Disposition: Home Primary Insurance: [facility] MEDICARE SOLUTIONS Discharge Planning Comments: CM MET WITH PTPS SPOUSE IN ROOM TO DISCUSS DISCHARGE PLANNING AND NEEDS. PT GONE TO DIALYSIS. PT'S SPOUSE REPORTS PT LIVING AT HOME DEPENDENT FOR MEDICATION MANAGEMENT, TRANSFERS AND BATHING WHEN NOT DOING WELL. PT'S SPOUSE REPORTS THAT THEY HAVE MANY FAMILY MEMBERS LIVING CLOSEBY THAT SHE CAN DEPEND ON TO COME OVER AND ASSIST IF NEEDED WITH PT AT HOME. PT HAS HOSPITAL BED, LIEFT CHAIR, WALKER AND WHEELCHAIR; PT HAS HOME OXYGEN THAT PT HAS NEVER USED FROM [facility] ALONG WITH [facility] FOR EMERGENCY USE. PT HAS NO OUTSIDE SERVICES ASSISTING IN THE HOME. CM DISCUSSED AVAILABILITY OF HOME HEALTH, REHAB SERVICES AND MEDICAL EQUIPMENT. PT'S SPOUSE DENIES DISCHARGE NEEDS OTHER THAN PORTABLE OXYGEN, DENIES NEED OF REHAB SERVICES, HOME HEALTH OR ADDITIONAL MEDICAL EQUIPMENT. PT'S SPOUSE IS HERE AND WILL PICK PT UP FOR DISCHARGE HOME. IMPORTANT MESSAGE FROM MEDICARE PROVIDED AND EXPLAINED. CM CALLED [facility], , VERIFIED WITH URSZULA THAT PT HAS HOME OXYGEN SERVICES ALREADY. CM WAITING OXYGEN TESTING TO DETEMINE IF PT NEEDS PORTABLE OXYGEN SERVICES AT HOME. CM TO ARRANGE PORTABLE OXYGEN WITH [facility] IF PT HAS QUALIFIED TESTING RESULT. Unhairing Inspector: Porfirio Moody Appended by Porfirio Moody on 03/18/2018 11:44 CIRCULAR SHEAR OPERATOR: PHYSICAL DISCHARGE ADDRESS IS [address] [place] [address]. [id number]. PORFIRIO MOODY, CASE MANAGEMENT DCPIA - Discharge Planning Initial Assessment Updated by [email or web address]: Porfirio Moody on 03/18/18 11:37 am * Is the patient Alert and Oriented? Yes * How many steps to enter\exit or inside your home? 0-O / 2-I * PCP DR. BATEMAN * [facility] [place] * Preadmission Environment Home with Family * ADLs Partial Dependent * Partial ADLs (Assistance needed) Bathing Medication Management Transfers * Equipment Hospital Bed Other Oxygen Walker Wheelchair * Other Equipment HOME OXGYGEN ONLY LIFT CHAIR [facility] - MEDICAL EQUIPMENT PROVIDER * List name and contact numbers for known caregivers / representatives who currently or will assist patient after discharge: HARVINDER SHAYAN, SPOUSE, AHSAN HOWARDWELL, SON, WASHINGTON DOWNEY, SON, * Verbal permission to speak to the caregivers and representatives has been obtained from the patient. N/A * Community resources currently utilized Other * Please name any agencies selected above. OUTPATIENT DIALYSIS, [facility], MWF, 1000AM, [facility] * Can the patient safely return to the preadmission environment? Yes * Has this patient been hospitalized within the prior 30 days at any hospital? No Coverage Notice Reviewer: [id number] Nkechi Sheyla Mcfaddin Notice Issued Date-Time: 03/15/2018 14:52 Notice Type: Medicare Outpatient Observation Notice Notice Delivered To: Family Member Relationship to Patient: Spouse Milling Operator Name: EUFEMIA DOWNEY, Delivery Method: HAND - Hand Delivered Mercy Days: Prior Verbal Notification: Recipient Understood Notice: Yes Recipient Signature: Yes Med Rec Note Co-signed by Attending: Coverage Notice Comment: PT VERY HARD OF HEARING AND COULD NOT UNDERSTAND MY SPEAKING. PT POINTED TO HIS , AND HIS STATED UNDERSTANDING AND SIGNED PER PTS REQUEST. Reviewer: [id number] Nkechi Moody Notice Issued Date-Time: 03/18/2018 10:45 Notice Type: IM Discharge Notice Notice Delivered To: Patient Relationship to Patient: Milling Operator Name: Delivery Method: HAND - Hand Delivered Mercy Days: Prior Verbal Notification: Recipient Understood Notice: Yes Recipient Signature: Yes Med Rec Note Co-signed by Attending: Coverage Notice Comment: Last DP export: 03/18/18 10:48 am Patient Name: FABIEN DOWNEY Page [phone] at 1419 All edits/amendments must be made on the electronic document DICTATION DATE: 03/18/181418 MANAGER MEMBERSHIP: BRONWYN 03/18/181418 RPT#: [id number] DC DATE: STATUS: ADM IN [facility] [address] [place] [address] END OF REPORT
--- NOTE | 2018-03-18 14:27 | MORECARE ---
CASE MANAGEMENT DISCHARGE SUMMARY PATIENT: FABIEN DOWNEY UNIT: [id number] ADM DATE: 03/15/18 AGE: 77 : 38 SEX: M ROOM/BED: D.2101 AUTHOR: SALLIE,DOC PHYSICIAN: REFERRING PHYSICIAN: SILVIA GALINDO DO DATE OF SERVICE: 03/18/18 Discharge Plan Patient Name: FABIEN DOWNEY Facility: [facility]:[place] : 1940 Planned Disposition: Home Anticipated Discharge Date: 03/18/18 Discharge Date: Expected LOS: 3 Initial Reviewer: [email or web address] Initial Review Date: 03/18/2018 Generated: 03/18/18 3:26 pm Comments DCP- Discharge Planning Updated by [email or web address]: Porfirio Moody on 03/18/18 1:[address] Patient Name: FABIEN DOWNEY Admission Status: Elective Accout number: [id number] Admission Date: 03-15-2018 : 1940 Admission Diagnosis: Attending: SILVIA GALINDO Current LOS: 3 Anticipated DC Date: 03-18-2018 Planned Disposition: Home Primary Insurance: [facility] MEDICARE SOLUTIONS Discharge Planning Comments: CM MET WITH PTPS SPOUSE IN ROOM TO DISCUSS DISCHARGE PLANNING AND NEEDS. PT GONE TO DIALYSIS. PT'S SPOUSE REPORTS PT LIVING AT HOME DEPENDENT FOR MEDICATION MANAGEMENT, TRANSFERS AND BATHING WHEN NOT DOING WELL. PT'S SPOUSE REPORTS THAT THEY HAVE MANY FAMILY MEMBERS LIVING CLOSEBY THAT SHE CAN DEPEND ON TO COME OVER AND ASSIST IF NEEDED WITH PT AT HOME. PT HAS HOSPITAL BED, LIEFT CHAIR, WALKER AND WHEELCHAIR; PT HAS HOME OXYGEN THAT PT HAS NEVER USED FROM [facility] ALONG WITH [facility] FOR EMERGENCY USE. PT HAS NO OUTSIDE SERVICES ASSISTING IN THE HOME. CM DISCUSSED AVAILABILITY OF HOME HEALTH, REHAB SERVICES AND MEDICAL EQUIPMENT. PT'S SPOUSE DENIES DISCHARGE NEEDS OTHER THAN PORTABLE OXYGEN, DENIES NEED OF REHAB SERVICES, HOME HEALTH OR ADDITIONAL MEDICAL EQUIPMENT. PT'S SPOUSE IS HERE AND WILL PICK PT UP FOR DISCHARGE HOME. IMPORTANT MESSAGE FROM MEDICARE PROVIDED AND EXPLAINED. CM CALLED [facility], , VERIFIED WITH URSZULA THAT PT HAS HOME OXYGEN SERVICES ALREADY. CM WAITING OXYGEN TESTING TO DETEMINE IF PT NEEDS PORTABLE OXYGEN SERVICES AT HOME. CM TO ARRANGE PORTABLE OXYGEN WITH [facility] IF PT HAS QUALIFIED TESTING RESULT. Sr. Unix System Administrator: Porfirio Moody Appended by Porfirio Moody on 03/18/2018 11:44 MARINE EQUIPMENT SALES ENGINEER: PHYSICAL DISCHARGE ADDRESS IS [address] [place] [address]. [id number]. PORFIRIO MOODY, CASE MANAGEMENT Appended by Porfirio Moody on 03/18/2018 14:19 MARINE EQUIPMENT SALES ENGINEER: CM RECEIVED OXYGEN TESTING, PT DID NOT DESAT BELOW 96%, WITH LIMITED EXERTION PT WAS NOT ABLE TO WALK VERY FAR. PT WILL NOT QUALIFY FOR PORTABLE OXYGEN AND ALREADY HAS HOME OXYGEN IN HIS HOME PROVIDED BY [facility]. NO DISCHARGE NEEDS NOTED. PORFIRIO MOODY, CASE MANAGEMENT DCPIA - Discharge Planning Initial Assessment Updated by [email or web address]: Porfirio Moody on 03/18/18 11:37 am * Is the patient Alert and Oriented? Yes * How many steps to enter\exit or inside your home? 0-O / 2-I * PCP DR. BATEMAN * [facility] [place] * Preadmission Environment Home with Family * ADLs Partial Dependent * Partial ADLs (Assistance needed) Bathing Medication Management Transfers * Equipment Hospital Bed Other Oxygen Walker Wheelchair * Other Equipment HOME OXGYGEN ONLY LIFT CHAIR [facility] - MEDICAL EQUIPMENT PROVIDER * List name and contact numbers for known caregivers / representatives who currently or will assist patient after discharge: HARVINDER DOWNEY, SPOUSE, AHSAN DOWNEY, SON, WASHINGTON DOWNEY, SON, * Verbal permission to speak to the caregivers and representatives has been obtained from the patient. N/A * Community resources currently utilized Other * Please name any agencies selected above. OUTPATIENT DIALYSIS, [facility], MWF, 1000AM, [facility] * Can the patient safely return to the preadmission environment? Yes * Has this patient been hospitalized within the prior 30 days at any hospital? No Coverage Notice Reviewer: [email or web address] Nkechi Ross Notice Issued Date-Time: 03/15/2018 14:52 Notice Type: Medicare Outpatient Observation Notice Notice Delivered To: Family Member Relationship to Patient: Spouse Registration Manager Name: EUFEMIA DOWNEY, Delivery Method: HAND - Hand Delivered Mercy Days: Prior Verbal Notification: Recipient Understood Notice: Yes Recipient Signature: Yes Med Rec Note Co-signed by Attending: Coverage Notice Comment: PT VERY HARD OF HEARING AND COULD NOT UNDERSTAND MY SPEAKING. PT POINTED TO HIS , AND HIS STATED UNDERSTANDING AND SIGNED PER PTS REQUEST. Reviewer: [id number] - Porfirio Moody Notice Issued Date-Time: 03/18/2018 10:45 Notice Type: IM Discharge Notice Notice Delivered To: Patient Relationship to Patient: Registration Manager Name: Delivery Method: HAND - Hand Delivered Mercy Days: Prior Verbal Notification: Recipient Understood Notice: Yes Recipient Signature: Yes Med Rec Note Co-signed by Attending: Coverage Notice Comment: Last DP export: 03/18/18 1:19 pm Patient Name: FABIEN DOWNEY Page [phone] at 1427 All edits/amendments must be made on the electronic document DICTATION DATE: 03/18/181425 FENCE POST DRIVER: BRONWYN 03/18/181425 RPT#: [id number] DC DATE: STATUS: ADM IN [facility] [address] [place] [address] END OF REPORT
--- NOTE | 2018-03-18 15:17 | NUR ---
BACK TO ROOM VIA BED FROM DIALYSIS. NO C/O AND SEEMED TO TOLERATE WELL. NO CONFUSION. SAT UP IN BED TO EAT LUNCH. NO REQUESTS VOICED.
[2018-03-18 15:33] VITALS: BP 102/52
--- NOTE | 2018-03-18 16:40 | NUR ---
DISCHARGE INSTRUCTIONS REVIEWED WITH PT AND HIS . BOTH VERBALIZE UNDERSTANDING WITH NO QUESTIONS. REMOVED SALINE LOCK WITH TIP INTACT. LEFT FLOOR VIA W/C WITH ALL PERSONAL BELONGINGS AND LEFT FACILITY VIA PRIVATE VEHICLE WITH HIS .
== END 2018-03-18 16:45 | disposition home or self-care (01) | DRG 727 ==
LOC: D.M2 19:36 → OBSVTIME 19:36 → D.M2 19:36
PROVIDERS: Family Medicine; ADMIT Family Medicine
PROC: 5A1D70Z Performance of Urinary Filtration, Intermittent, Less than 6 Hours Per Day (ICD-10-PCS; principal; 2018-03-16)
DX: B37.49 Other urogenital candidiasis (principal); N18.6 End stage renal disease; M87.852 Other osteonecrosis, left femur; M87.851 Other osteonecrosis, right femur; M48.50XA Collapsed vertebra, not elsewhere classified, site unspecified, initial encounter for fracture; E11.22 Type 2 diabetes mellitus with diabetic chronic kidney disease; Z99.2 Dependence on renal dialysis; E78.5 Hyperlipidemia, unspecified; R09.02 Hypoxemia

== ENCOUNTER 2018-04-05 07:28 | Day surgery (SDC) | payer MEDICARE, MEDICAID ==
[~2018-04-05] VITALS: Ht 182.9 cm; Wt 81.2 kg
[~2018-04-05 07:28] MED LIST changes: +ELIQUIS2.5 MG PO; +LEVOFLOXACIN500 MG PO
[2018-04-05 08:17] LABS: BASOPHILS 0.5 % (0-2); EOSINOPHILS 6.5 % (0-7); HEMATOCRIT 35.1 % (42.0-54.0); IMMATURE GRANULOCYTES 0.2 % (0-5); LYMPHOCYTES 26.6 % (15-50); MCH 31.3 pg (26.0-34.0); MCHC 31.3 g/dL (31.0-37.0); MEAN PLATELET VOLUME 9.4 fL (7.4-10.4); NEUTROPHILS 52.2 % (40-80); RBC 3.51 10x6/uL (4.20-6.10); RDW 14.5 % (11.5-14.5); WBC 5.7 10x3/uL (4.8-10.8)
[2018-04-05 08:19] LABS: CALCIUM 8.6 mg/dL (8.5-10.1); CARBON DIOXIDE 28.3 mmol/L (21.0-32.0); CREATININE - SERUM 4.9 mg/dL (0.6-1.3); POTASSIUM - SERUM 4.3 mmol/L (3.5-5.1)
[2018-04-05 08:22] LABS: PLATELET COUNT 232 10x3/uL (130-400)
[2018-04-05 08:25] LABS: INR 1.15 (0.85-1.17); PROTIME 14.2 SECONDS (11.6-15.0)
[2018-04-05] MEDS ORDERED: AMOXICILLIN500 M1 PO (08:45)
[2018-04-05 09:31] VITALS: BP 123/58; Ht 182.9 cm; Wt 81.2 kg
[2018-04-05] MEDS ORDERED: ULTRAM50 MG PO (12:41)
--- NOTE | 2018-04-07 11:50 | OP ---
PATIENT NAME: FABIEN DOWNEY MEDICAL RECORD: [id number] :38 LOCATION:[facility] ADMISSION DATE: SURGEON: JED NOEL MD DATE OF OPERATION: 04/05/2018 REFERRED BY: Aniya Winchester MD PREOPERATIVE DIAGNOSIS: Exposed, infected, dialysis access graft, right forearm. POSTOPERATIVE DIAGNOSIS: Exposed, infected, dialysis access graft, right forearm. ADDITIONAL DIAGNOSIS: End-stage renal disease and dependence on hemodialysis. OPERATION PERFORMED: Open revision without thrombectomy. SURGEON: Jed Noel MD ANESTHESIA: Regional block plus MAC per DIRECTOR GEOTHERMAL OPERATIONS. PREOPERATIVE NOTE: Mr. Downey is a very nice 77-year-old white male patient from [place], [place]. He has end-stage renal disease and has been dialyzing quite well with a right forearm RD graft loop. He has quite severe sun damaged skin, which has probably contributed to the problem and has developed an erosion with visible graft at the base at sites of previous needle sticks, just one erosion at exposure site. There is no gross purulence, but the overlying skin is fixed to the underlying graft. I have told her that this segment needs to be removed and a new bypass or jump graft placed around it and he is brought to the OR for that purpose. He has not taken any Plavix since yesterday. DESCRIPTION OF PROCEDURE: With the patient under a nerve block in supine position, the patient's right arm was prepped and draped in sterile manner. I made an incision over the graft, around the exposed eroded site and I exposed and dissected circumferentially around the arterial inflow limb and this was controlled with a Silastic loop and clamped as needed. Similarly, the venous limb was exposed and controlled with loops. The graft was clamped and the middle ulcerated segment with a bit of the overlying skin was excised. This was sent to lab for culture. The artery was then flushed with heparinized saline and again clamped. The venous side was treated by Kalpana balloon thrombectomy and then flushing with heparinized saline. I interposed a length of 6-mm standard wall thickness [place] Propaten PTFE. This was placed in a new parallel subcutaneous tunnel. The suture lines were done, each with a running 6-0 Prolene and sealed with BioGlue. The wound was irrigated with Ancef and gentamicin solution. Hemostasis was obtained with electrocautery and at the end of the operation I requested the patient be given 20 mg of DDAVP because of the continued oozing. The wound was closed with interrupted inverted 3-0 Vicryl and interrupted simple 3-0 Prolene sutures. The incision was dressed with Bactroban ointment and Vaseline gauze. Sterile dry 4 x 4s, Kerlix wrap and Coban elastic dressing material to apply some gentle compression. At that point, the patient was awakened and taken back, I believe, to his room in stable condition bypassing the PACU. Blood lost in the operation was perhaps 100 cc, maybe only 50. Certainly none was replaced and all sponges, instruments, and needles were accounted for. No OPERATIVE REPORT [id number] FABIEN DOWNEY drain was used and no specimen was submitted for histopathology. Today is Wednesday. I would like to see the patient back in my office on . He can continue his regular dialysis schedule of Wednesday, Wednesday and Wednesday. The dialysis nurses will have to remove his dressing tomorrow in order to be able to access the venous limb of his fistula and then they will need to redress it or at least cover it. We will ask home health to see him hopefully daily and redress his wound, redressing it just as I dressed it today in the operating room. He is given a prescription for tramadol 50 mg, he can take 1 or 2 p.o. every 4 hours p.r.n. pain and may use ice off and on for discomfort for short periods only. TRANSINT:[id number] Voice Confirmation ID: [id number] DOCUMENT ID: [id number] cc: [facility] [phone] JED NOEL MD at 1150 CC: ANIYA WINCHESTER MD and [facility] [phone] DICTATION DATE: 04/05/18 1308 AREA OPERATIONS MANAGER: 04/05/18 1617 [facility] 04/05/18 [facility] [address] [facility] [address]
== END 2018-04-05 16:50 | disposition home or self-care (01) ==
LOC: D.OPS 07:28
PROVIDERS: Surgery; ATTEND Internal Medicine Nephrology
DX: T82.7XXA Infection and inflammatory reaction due to other cardiac and vascular devices, implants and grafts, initial encounter (principal); N18.6 End stage renal disease; Z99.2 Dependence on renal dialysis; Z01.812 Encounter for preprocedural laboratory examination

== ENCOUNTER 2018-10-14 11:01 | Inpatient (IN) | payer MEDICARE, MEDICAID ==
[~2018-10-14] VITALS: Ht 182.9 cm; Wt 94.6 kg
--- NOTE | ~2018-10-14 | HEMODYNAMI ---
PATIENT:FABIEN DOWNEY MEDICAL RECORD: [id number] : 38 [id number] ADMISSION DATE: 10/14/18 Generatedon:10/14/201814:33 Patient name: FABIEN DOWNEY Patient #: [id number] SSN: [id number] : 1940 Date of study: 10/14/2018 Page: Of Hemodynamic Procedure Report Patient Data Patient Demographics Procedure consent was obtained First Name: FABIEN Gender: Male Last Name: SHAYAN : 1940 [facility] Initial: L Age: 77 year(s) Patient #: [id number] Race: SSN: [id number] Additional ID: [id number] Contact details Address: [facility] [address] State: [place] City: [place] Zip code: [address] Past Medical History Allergies: No known allergies Admission Admission Data Admission Date: 10/14/2018 Admission Time: 12:23 Admit Source: Emergency Insurance Payor: Medicare, department Medicaid Room #: D.2113 [facility] #: [id number] Height (in.): 72 BSA: 2.08 (m2) Height (cm.): 182.88 BMI: 25.77 (kg/m2) Weight (lbs.): 190 Weight (kg.): 86.18 Lab Results Lab Result Date: 10/14/2018 Lab Result Time: 11:45 Biochemistry Name Units Result Min Max BUN mg/dl 56 --(----)-* 7 18 Creatinine mg/dl 7.9 --(----)-* 0.6 1.3 CBC Name Units Result Min Max Hematocrit % 29.8 *-(----)-- 42 54 Hemoglobin g/dl 10 *-(----)-- 13.5 17.5 Procedure Procedure Types Cath Procedure Diagnostic Procedure LHC Coronaries only Sedation Charges Moderate Sedation up to 15 minutes PCI Procedure Coronary Stent Coronary Stent Initial Procedure Description Procedure Date Procedure Date: 10/14/2018 Procedure Start Time: 14:00 Procedure End Time: 14:30 Procedure Staff Name Function Octavio Casey MD Performing Physician Hermann Clark RT Monitor Meg De Santiago RT Scrub Bernardo Joel RN Nurse Betty Arriaza RN Tooth Grinder Procedure Data Cath Procedure Fluoroscopy Diagnostic fluoroscopy Total fluoroscopy Time: time: 10.2 min 10.2 min Diagnostic fluoroscopy Total fluoroscopy dose: dose: 1511 mGy 1511 mGy Contrast Material Contrast Material Type Amount (ml) Isovue 300 135 Entry Location Entry Primary Successful Side Size Upsize Upsize Entry Closure Succes sful Closure Location (Fr) 1 (Fr) 2 (Fr) Remarks Device Remarks Femoral Right 5 Fr 6 Fr Exoseal artery Short Estimated blood loss: 10 ml Diagnostic catheters Device Type Used For End Catheter Placement MULTIPACK Pigtail 5 Fr Procedure catheter MULTIPACK JL 4.0 5Fr Procedure catheter MULTIPACK 3DRC 5Fr Procedure catheter Procedure Medications Medication Administration Route Dosage 0.9% NaCl I.V. 10 ml/hr Oxygen etCO2 Nasal cannula 2 l/min Heparin Flush Bag added to field 2 bags (1000units/500ml NS) Lidocaine 2% added to field 20 Vancomycin 1 g Versed I.V. 0.5 mg Fentanyl I.V. 25 mcg Versed I.V. 0.5 mg Lopressor I.V. 5 mg Heparin Bolus I.V. 4000 units Versed I.V. 0.5 mg Versed I.V. 0.5 mg Plavix P.O. 75 mg Hemodynamics Rest BSA: 2.08 (m2) HGB: 10 (g/dl) O2 Consumption: Estimated: 279.89 (ml/min) O2 Cons umption indexed: Estimated:134.56 (ml/min/m) Heart Rate: 124 (bpm) Snapshots Pre Cath Intra NCS Post Cath Vital Signs Time Heart Resp SPO2 etCO2 NIBP Rhythm Pain Sedation Rate (ipm) (%) (mmHg) (mmHg) Status Level (bpm) 13:44:23 123 29 99 0 123/73(87) NSR 0 (11) 10(A) , No pain 13:48:39 126 33 95 0 115/71(99) NSR 0 (11) 10(A) , No pain 13:52:51 120 26 93 0 114/72(94) NSR 0 (11) 10(A) , No pain 13:57:07 120 24 93 8.2 112/65(87) NSR 0 (11) 10(A) , No pain 14:01:19 116 19 92 13.5 105/72(75) NSR 0 (11) 10(A) , No pain 14:05:29 102 27 90 23.2 93/60(72) NSR 0 (11) 9(A) , No pain 14:09:39 98 30 96 10.5 85/58(71) NSR 0 (11) 9(A) , No pain 14:13:49 95 30 96 0 83/55(66) NSR 0 (11) 9(A) , No pain 14:17:57 97 32 95 0 83/56(65) NSR 0 (11) 10(A) , No pain 14:24:01 98 27 98 0 86/55(69) NSR 0 (11) 10(A) , No pain 14:28:11 96 31 98 0 82/57(66) NSR 0 (11) 10(A) , No pain Medications Time Medication Route Dose Verified Delivered Reason Not es Effectiveness by by 13:46:29 0.9% NaCl I.V. 10 Bernardo Bernardo Per physician ml/hr Wisam Joel RN RN 13:46:44 Oxygen etCO2 2 Bernardo Bernardo for low 02 sats Nasal l/min Wisam Joel cannula RN RN 13:46:57 Heparin Flush added to 2 Bernardo Bernardo used for Bag field bags Wisam Joel procedure (1000units/500ml RN RN NS) 13:47:08 Lidocaine 2% added to 20ml Bernardo Bernardo for local field vial Lorcecille Joel anesthetic RN RN 13:48:00 Vancomycin I.V.P.B 1 g Bernardo Bernardo Per physician (infusing Wisam Joel upon RN RN arrival from ER) 13:54:14 Versed I.V. 0.5 Bernardo Bernardo for sedation mg Wisam Joel RN RN 13:54:24 Fentanyl I.V. 25 Bernardo Bernardo for sedation mcg Wisam Joel RN RN 14:00:11 Versed I.V. 0.5 Bernardo Bernardo for sedation mg Wisam Joel RN RN 14:01:34 Lopressor I.V. 5 mg Bernardo Bernardo for arrhythmia Wisam Joel RN RN 14:08:36 Heparin Bolus I.V. 4000 Bernardo Bernardo for units Wisam Joel anticoagulation RN RN 14:08:47 Versed I.V. 0.5 Bernardo Bernardo for sedation mg Wisam Joel RN RN 14:14:34 Versed I.V. 0.5 Bernardo Bernardo for sedation mg Wisam Joel RN RN 14:25:21 Plavix P.O. 75 mg Bernardo Bernardo for Arceliacecille Joel antiplatelet RN RN therapy Procedure Log Time Note 13:20:35 Betty Arriaza RN sent for patient. Start room use. 13:21:53 Informed consent obtained and on chart 13:24:13 Lab Result : BUN 56 mg/dl 13:24:13 Lab Result : Hematocrit 29.8 % 13:24:13 Lab Result : Hemoglobin 10 g/dl 13:24:13 Lab Result : Creatinine 7.9 mg/dl 13:30:36 Time tracking: Regular hours (M-F 7:00 - 5:00) 13:30:41 Plan of Care:Hemodynamics will remain stable., Cardiac rhythm will remain stable., Comfort level will be maintained., Respiratory function will remain adequate., Patient/ family verbilizes understanding of procedure., Procedure tolerated without complication., Recovers from procedure without complications.. 13:31:53 Admit Source: Emergency department 13:31:56 ACC Patient presents with Non-STEMI CCS Anginal Class 4--Inability to carry out any physical activity w/o angina. Angina may occur at rest. 13:32:14 ACCPatient has been prescribed/administered the following anti-anginal medication within the last 2 weeks: None 13:33:05 Procedure Status Urgent Heart Cath (IP). 13:33:17 H&P Date Dictated: 10/14/2018 New H&P dictated by physician.. 13:35:00 Patient Weight : 190 lbs 13:35:09 Patient Height : 72 inches 13:35:09 Insurance Payor : Medicare, Medicaid 13:35:37 Patient received from ED to CCL 2 Alert and oriented. Tansferred to table in Supine position. 13:35:38 Warm blankets applied, and colette hugger turned on for patient comfort. 13:35:39 Correct patient and procedure confirmed by team. 13:35:39 ECG and BP/O2 sat monitors applied to patient. 13:35:42 Pre-procedure instructions explained to patient. 13:35:42 Pre-op teaching completed and patient verbalized understanding. 13:35:44 Family in waiting room. 13:35:47 Patient NPO since Breakfast. 13:43:15 Vital chart was started 13:46:29 0.9% NaCl 10 ml/hr I.V. was administered by Bernardo Joel RN; Per physician; 13:46:44 Oxygen 2 l/min etCO2 Nasal cannula was administered by Bernardo Joel RN; for low 02 sats; 13:46:57 Heparin Flush Bag (1000units/500ml NS) 2 bags added to field was administered by Bernardo Joel RN; used for procedure; 13:47:08 Lidocaine 2% 20ml vial added to field was administered by Bernardo Joel RN; for local anesthetic; 13:48:00 Vancomycin 1 g I.V.P.B (infusing upon arrival from ER) was administered by Bernardo Joel RN; Per physician; 13:50:12 Patient allergic to No known allergies 13:50:16 Baseline sample Acquired. 13:50:18 Rhythm: sinus tachycardia 13:50:19 Full Disclosure recording started 13:50:21 Is the patient allergic to Iodine/contrast media? No. 13:50:22 Is patient on blood thinner?Yes 13:50:27 ACC The patient was administered the following blood thiners within the last 24 hours: ACCAspirin, ACCPlavix, Eliquis 13:50:28 Patient diabetic? Yes. 13:50:29 If diabetic: On Metformin? No 13:50:32 Previous problem with sedation/anesthesia? No ? 13:50:33 Snore? Yes 13:50:37 Sleep apnea? No 13:50:37 Deviated septum? No 13:50:38 Opens mouth fully? Yes 13:50:39 Sticks out tongue? Yes 13:50:46 Airway obstruction? Yes Pneumonia 13:50:48 Dentures? No ? 13:50:50 Pre procedure: right dorsailis pedis pulse 1+ Palpable, but thready & weak; easily obliterated 13:50:52 Patient pain scale 0/10 ?. 13:50:58 IV patent on arrival in left antecubital with 0.9% NaCl at KVO. 13:50:59 Lab results completed and on chart. 13:51:02 Right groin area was prepped with chlora-prep and draped in sterile fashion 13:51:03 Alarms reviewed by R. N. 13:51:03 Sharps counted by scrub and verified by R.N. 13:51:04 Use device set Femoral Dx 13:51:05 ACIST Syringe (97726) opened to sterile field. 13:51:06 Bag Decanter (2002S) opened to sterile field. 13:51:06 Medline Cath Pack ([id number]) opened to sterile field. 13:51:07 ACIST Hand Control (53968) opened to sterile field. 13:51:07 ACIST Manifold (86557) opened to sterile field. 13:51:08 DIAGNOSTIC Multipack 5Fr catheter set (AC1733) opened to sterile field. 13:51:08 Tegaderm 4 x 4 (1626W) opened to sterile field. 13:51:09 SHEATH 5FR Emery (XDS832) opened to sterile field. 13:51:10 EMERALD Guide Wire (110-027) opened to sterile field. 13:53:07 Physician arrived 13:53:07 --------ALL STOP TIME OUT------ 13:53:07 Final Timeout: patient, procedure, and site verified with staff and physician. All members of the team are in agreement. 13:53:08 Right groin site verified by team. 13:53:11 Fire Safety Assessment: A--An alcohol-based skin anteseptic being used preoperatively., C--Open oxygen or nitrous oxide is being used., D--An ESU, laser, or fiber-optic light is being used. 13:53:14 Physical assessment completed. ASA score P 3 - A patient with severe systemic disease as per Octavio Casey MD. 13:53:17 5) <15 or on dialysis Very severe, or end stage kidney failure. 13:53:19 Maximum allowable contrast dose (3.7 X eGFR X 0.75)20 ml. 13:53:22 Sedation plan: IV Moderate Sedation Medication:Versed, Fentanyl 13:54:14 Versed 0.5 mg I.V. was administered by Bernardo Lorigan RN; for sedation; 13:54:24 Fentanyl 25 mcg I.V. was administered by Bernardo Joel RN; for sedation; 13:58:23 Zero performed for pressure channel P1 13:59:58 Procedure started. 14:00:01 Local anesthetic to right femoral artery with Lidocaine 2% by Octavio Casey MD.INITIAL ACCESS ONLY 14:00:09 A 5 Fr sheath was inserted into the Right Femoral artery 14:00:11 Versed 0.5 mg I.V. was administered by Bernardo Joel RN; for sedation; 14:00:53 A MULTIPACK Pigtail 5 Fr catheter was advanced over the wire and used for Procedure. 14:01:34 Lopressor 5 mg I.V. was administered by Bernardo Joel RN; for arrhythmia; 14:03:34 catheter removed, unable to cross valve. 14:03:39 A MULTIPACK JL 4.0 5Fr catheter was advanced over the wire and used for Procedure. 14:03:51 LCA angiography performed. 14:04:43 CHOICE PT Extra Support 182cm wire ([id number]) opened to sterile field. 14:04:44 INFLATOR Merit BasixCompak (KB1099) opened to sterile field. 14:05:09 Catheter exchanged over wire. 14:05:14 A MULTIPACK 3DRC 5Fr catheter was advanced over the wire and used for Procedure. 14:05:47 RCA angiography performed. 14:07:25 GUIDE 6FR HS II catheter ([id number]) opened to sterile field. 14:07:53 SHEATH 6FR Emery (IXE996) opened to sterile field. 14:08:23 Catheter removed. 14:08:29 Sheath upsized to a 6 Fr Short. 14:08:36 Heparin Bolus 4000 units I.V. was administered by Bernardo Joel RN; for anticoagulation; 14:08:39 6 Fr HS II SH guide catheter was inserted over the wire 14:08:45 CHOICE PT ES wire advanced. 14:08:46 Wire advanced across lesion. 14:08:47 Versed 0.5 mg I.V. was administered by Bernardo Joel RN; for sedation; 14:08:50 ACC Pre-intervention JOJO Flow is 3. 14:09:00 Pre PCI Site: [place] RCA has 95% stenosis. 14:09:39 Place stent Inflation Number: 1 A JAH RX 4.0 x 12 stent ([id number]) was prepped and advanced across the Prox RCA . The stent was deployed at 21 BONI for 0:10 (min:sec) . 14:10:05 Stent catheter was removed intact over wire. 14:12:20 Inflate balloon Inflation number: 2 A EUPHORA 3.0 x 10 balloon ([id number]) was prepped and advanced across the Prox RCA , then inflated to 17 BONI for 0:10 (min:sec) . 14:12:28 Balloon removed over the wire. 14:14:34 Versed 0.5 mg I.V. was administered by Bernardo Joel RN; for sedation; 14:14:40 Place stent Inflation Number: 3 A JAH RX 3.5 x 12 stent ([id number]) was prepped and advanced across the Prox RCA . The stent was deployed at 17 BONI for 0:10 (min:sec) . 14:14:47 Stent catheter was removed intact over wire. 14:16:28 The JAH RX 3.0 x 18 stent ([id number]) was advanced then removed because of failure to cross lesion 14:17:37 The EUPHORA 3.0 x 10 balloon ([id number]) was advanced and then removed because of failure to cross lesion 14:18:55 Inflate balloon Inflation number: 1 A EUPHORA 3.0 x 20 Balloon ([id number]) was prepped and advanced across the Mid RCA , then inflated to 21 BONI for 0:10 (min:sec) . 14:19:22 Balloon removed over the wire. 14:21:00 Place stent Inflation Number: 2 A JAH RX 3.0 x 18 stent ([id number]) was prepped and advanced across the Mid RCA . The stent was deployed at 17 BONI for 0:10 (min:sec) . 14:21:36 Post PCI Site: [place] RCA has 0% stenosis. 14:21:42 ACC Post-intervention JOJO Flow is 3. 14:21:46 Stent catheter was removed intact over wire. 14:21:46 Wire removed. 14:21:47 Guide catheter removed. 14:21:53 EXOSEAL 6Fr (EX600) opened to sterile field. 14:21:57 ACT drawn and resulted at 256 seconds. (normal therapeutic range 180-240 seconds). 14:22:06 Sheath removed intact; hemostasis achieved with Exoseal to the Right Femoral artery. 14:22:07 Procedure ended.(Physican Out) 14:23:13 FEMSTOP Gold (M40690) opened to sterile field. 14:23: Fluoroscopy time 10.20 minutes. 14:: Fluoroscopy dose: 1511 mGy 14:: Flurop Dose total: 1511 14::37 Dose Area Product 01818 mGy/cm. 14:23:41 Contrast amount:Isovue 300 135ml. 14:23:42 Maximum allowable dose exceeded? Yes. 14:23:43 Sharps counted by scrub and verified by R.N. 14:23:44 Insertion/operative site no bleeding no hematoma. 14:23:46 Post-op/insertion site Right Femoral artery dressed using a 4 x 4 and Tegaderm. 14:23:49 Post right femoral artery:stable, soft, clean and dry 14:25:21 Plavix 75 mg P.O. was administered by Bernardo Joel RN; for antiplatelet therapy; 14::27 Placing femstop on RFA due to Pt. excessivley coughing. 14:26:45 Femstop placed over the right femoral artery at 110 mmHg. Hemostasis achieved. 14::47 Post Procedure Pulses reassessed and unchanged 14::58 Post-procedure physical assessment completed. ASA score P 3 - A patient with severe systemic disease as per Octavio Casey MD. 14:27:00 Post procedure rhythm: unchanged. 14:27:01 Estimated blood loss: 10 ml 14:27:02 Post procedure instruction explained to patient.Patient verbalizes understanding. 14:27:03 Patient needs reinforcement of post procedure teaching. 14:27:40 Procedure type changed to Cath procedure, Diagnostic procedure, LHC, Coronaries only, Sedation Charges, Moderate Sedation up to 15 minutes, PCI procedure, Coronary Stent, Coronary Stent Initial 14:30:16 Procedure and supply charges have been captured, reviewed, submitted and are correct. 14:30:20 Vital chart was stopped 14:30:25 See physician's report for complete and final results. 14:30: Report given to PCU. 14:30:29 Patient transfered to PCU with Stretcher. 14:30:30 Procedure ended. 14:30:30 Full Disclosure recording stopped 14:30:36 ACC-PCI Only Patient was given prescriptions, or instructed by Octavio Casey MD to start/continue the following medications upon discharge: Aspirin, Plavix 14:30:45 End room use (Document Last) Intervention Summary Intervention Notes Time ActionType Lesion and Equipment Used Action# Pressure Duration Attributes 14:09:39 Place stent Prox RCA JAH RX 4.0 x 1 21 00:10 12 stent ([id number]) 14:12:20 Inflate Prox RCA EUPHORA 3.0 x 2 17 00:10 balloon 10 balloon ([id number]) 14:14:40 Place stent Prox RCA JAH RX 3.5 x 3 17 00:10 12 stent ([id number]) 14:16:28 Discard JAH RX 3.0 x Stent 18 stent ([id number]) 14:17:37 Discard EUPHORA 3.0 x Balloon 10 balloon ([id number]) 14:18:55 Inflate Mid RCA EUPHORA 3.0 x 1 21 00:10 balloon 20 Balloon ([id number]) 14:21:00 Place stent Mid RCA JAH RX 3.0 x 2 17 00:10 18 stent ([id number]) Device Usage Item Name Manufacture Quantity Catalog Number [facility] Part Current M inimal Lot# / Charge Number Stock Stock Serial# Code ACIST Syringe Acist 1 06327 829568 505908 981420 2 0 (54404) Medical Systems Inc Bag Decanter Microtek 1 2001S 367810 04415 553081 5 () Medical Inc. Medline Cath Medline 1 [id number] 055886 80419 822417 5 Pack ([id number]) ACIST Hand Acist 1 33218 187918 817186 535607 5 Control Medical (39021) Systems Inc ACIST Manifold Acist 1 90050 457428 123648 605608 5 (98947) Medical Systems Inc DIAGNOSTIC Cardinal 1 GD1879 079323 09268 751872 3 0 Multipack 5Fr Health catheter set (DG6682) Tegaderm 4 x 4 3M 1 1626W 070195 903353 707591 5 (1626W) SHEATH 5FR Terumo 1 WCT865 970940 615926 343013 5 Emery ([id number]) EMERALD Guide Cardinal 1 502-455 291283 940333 742967 5 Wire (502455) Health MULTIPACK Cardinal 1 854199 5 Pigtail 5 Fr Health catheter MULTIPACK JL Cardinal 1 315318 5 4.0 5Fr Health catheter CHOICE PT [place] 1 [id number] 552224 274816 138124 5 Extra Support Scientific 182cm wire ([id number]) INFLATOR Merit Merit 1 VH0675 962507 100149 454182 1 5 [employer]OGENESIS [employer] (VT0033) MULTIPACK 3DRC Cardinal 1 896640 5 5Fr catheter Health GUIDE 6FR HS Medtronic 1 [id number] 033293 31427 394462 1 II catheter ([id number]) JAH RX 4.0 x Medtronic 1 [id number] 310567 3315934 493580 5 [id number] 12 stent ([id number]) EUPHORA 3.0 x Medtronic 1 [id number] 165380 791796 058183 5 [id number] 10 balloon ([id number]) JAH RX 3.5 x Medtronic 1 [id number] 000096 7152285 328648 5 [id number] 12 stent ([id number]) JAH RX 3.0 x Medtronic 1 [id number] 334516 3576033 006813 5 [id number] 18 stent ([id number]) EUPHORA 3.0 x Medtronic 1 [id number] 641069 821493 142230 5 [id number] 20 Balloon ([id number]) EXOSEAL 6Fr Cardinal 1 EX600 797541 406982 087521 1 0 (EX600) Health FEMSTOP Gold St [place] 1 Q85719 018925 072542 912988 5 ([id number]) SHEATH 6FR Terumo 1 [id number] 344789 447222 787644 4 0 Emery ([id number]) Signature Audit [place] Stage Time Signature Unsigned Intra-Procedure 10/14/2018 Hermann Clark 2:33:05 PM RT(R) Signatures Performing Physician : Signature : Octavio Casey MD Date : Time : Monitor : Hermann Clark RT Signature : Date : Time : Nurse : Bernardo Lorigan Signature : RN Date : Time : [address] [place] [address]
--- NOTE | ~2018-10-14 | HEMODYNAMI ---
PATIENT:FABIEN DOWNEY MEDICAL RECORD: [id number] : 36 [id number] ADMISSION DATE: 10/14/18 Generatedon:10/24/201812:50 Patient name: FABIEN DOWNEY Patient #: [id number] SSN: [id number] : 1940 Date of study: 10/24/2018 Page: Of Hemodynamic Procedure Report Patient Data Patient Demographics Procedure consent was obtained First Name: FABIEN Gender: Male Last Name: SHAYAN : 1940 [facility] Initial: L Age: 77 year(s) Patient #: [id number] Race: SSN: [id number] Additional ID: [id number] Contact details Address: [facility] [address] State: [place] City: [place] Zip code: [address] Past Medical History Allergies: No known allergies Admission Admission Data Admission Date: 10/14/2018 Admission Time: 12:23 Admit Source: Emergency Insurance Payor: Medicare, department Medicaid Room #: D.2305 [facility] #: [id number] Height (in.): 72 BSA: 2.13 (m2) Height (cm.): 182.88 BMI: 27.26 (kg/m2) Weight (lbs.): 201 Weight (kg.): 91.17 Lab Results Lab Result Date: 10/24/2018 Lab Result Time: 0:00 Biochemistry Name Units Result Min Max BUN mg/dl 60 --(----)-* 7 18 Creatinine mg/dl 9.6 --(----)-* 0.6 1.3 eGFR ml/min 6 *-(----)-- 90 120 NONAFRICAN CBC Name Units Result Min Max Hematocrit % 32.1 *-(----)-- 42 54 Hemoglobin g/dl 10.4 *-(----)-- 13.5 17.5 Procedure Procedure Types Cath Procedure Diagnostic Procedure FFR/IVUS FFR Initial FFR Additional PCI Procedure Coronary Stent Coronary Stent Initial Procedure Description Procedure Date Procedure Date: 10/24/2018 Procedure Start Time: 12:29 Procedure End Time: 12:44 Procedure Staff Name Function Octavio Casey MD Performing Physician Carol Garcia RT Monitor Hermann Clark RT Scrub Maryann Crisostomo RN Nurse Procedure Data Cath Procedure Fluoroscopy Diagnostic fluoroscopy Total fluoroscopy Time: 3.6 time: 3.6 min min Diagnostic fluoroscopy Total fluoroscopy dose: 563 dose: 563 mGy mGy Contrast Material Contrast Material Type Amount (ml) Isovue 300 69 Entry Location Entry Primary Successful Side Size Upsize Upsize Entry Closure Succes sful Closure Location (Fr) 1 (Fr) 2 (Fr) Remarks Device Remarks Femoral Right 6 Fr Exoseal artery Short Estimated blood loss: 10 ml Procedure Complications No complications Procedure Medications Medication Administration Route Dosage Oxygen 8 l/min 0.9% NaCl I.V. Lidocaine 2% added to field 20 Heparin Flush Bag added to field 2 bags (1000units/500ml NS) Heparin Bolus I.V. 4000 units Hemodynamics Rest BSA: 2.13 (m2) O2 Consumption: Estimated: 265.15 (ml/min) O2 Consumption indexed : Estimated:124.48 (ml/min/m) Heart Rate: 97 (bpm) Snapshots Pre Cath Intra NCS Post Cath Vital Signs Time Heart Resp SPO2 etCO2 NIBP Rhythm Pain Sedation Rate (ipm) (%) (mmHg) (mmHg) Status Level (bpm) 12:23:49 98 48 90 0 82/53(66) A-Fib 0 (11) 10(A) , No pain 12:27:55 96 57 90 0 85/55(73) A-Fib 0 (11) 10(A) , No pain 12:32:03 95 33 89 0 78/56(70) A-Fib 0 (11) 10(A) , No pain 12:36:07 95 34 88 0 83/56(73) A-Fib 0 (11) 10(A) , No pain 12:40:08 97 52 91 0 92/64(83) A-Fib 0 (11) 10(A) , No pain 12:44:16 96 25 90 0 87/59(74) A-Fib 0 (11) 10(A) , No pain Medications Time Medication Route Dose Verified Delivered Reason Notes Effectiveness by by 12:22:47 Oxygen NC- 8 Octavio Wolf Per physician Pt in high l/min Jacinto Crisostomo RN resp flow distress, brought from ICU. 12:23:25 0.9% NaCl I.V. kvo Octavio Wolf Per physician ml/hr Jacinto Crisostomo RN 12:23:33 Lidocaine 2% added 20ml Octavio Cunningham for local to vial Jacinto Casey MD anesthetic field 12:23:49 Heparin Flush added 2 Octavioismael Cunningham used for Bag to bags Jacinto Casey MD procedure (1000units/500ml field NS) 12:33:35 Heparin Bolus I.V. 4000 Octavio Wolf for verifi ed units Jacinto Crisostomo RN anticoagulation with dr casey Procedure Log Time Note 11:59:02 Patient Height : 72 inches 11:59:02 Patient Weight : 201 lbs 11:59:08 Signed procedure consent form obtained from patient. 11:59:10 Procedure Status Urgent Heart Cath (IP). 11:59:12 Time tracking: Regular hours (M-F 7:00 - 5:00) 11:59:14 Plan of Care:Hemodynamics will remain stable., Cardiac rhythm will remain stable., Comfort level will be maintained., Respiratory function will remain adequate., Patient/ family verbilizes understanding of procedure., Procedure tolerated without complication., Recovers from procedure without complications.. 12:00:45 Patient allergic to No known allergies 12:01:24 Lab Result : BUN 60 mg/dl 12:01:24 Lab Result : Creatinine 9.6 mg/dl 12:01:24 Lab Result : eGFR NONAFRICAN 6 ml/min 12:01:25 Lab Result : Hematocrit 32.1 % 12:01:25 Lab Result : Hemoglobin 10.4 g/dl 12:01:51 Maryann Crisostomo RN sent for patient. Start room use. 12:12:18 Patient received from ICU to CCL 1 Alert and oriented. Tansferred to table in Supine position. 12:12:20 Warm blankets applied, and colette hugger turned on for patient comfort. 12:12:20 Correct patient and procedure confirmed by team. 12:12:20 ECG and BP/O2 sat monitors applied to patient. 12:22:37 Vital chart was started 12:22:47 Oxygen 8 l/min NC- high flow was administered by Buffie Crisostomo RN; Per physician; Pt in resp distress, brought from ICU. 12:23:25 0.9% NaCl kvo ml/hr I.V. was administered by Maryann Crisostomo RN; Per physician; 12::33 Lidocaine 2% 20ml vial added to field was administered by Octavio Casey MD; for local anesthetic; 12::49 Heparin Flush Bag (1000units/500ml NS) 2 bags added to field was administered by Octavio Casey MD; used for procedure; 12::39 Baseline sample Acquired. 12::43 Rhythm: sinus rhythm 12::45 Baseline sample Acquired. 12::45 Full Disclosure recording started 12::46 Pre-procedure instructions explained to patient. 12::46 Pre-op teaching completed and patient verbalized understanding. 12::49 Family in waiting room. 12::52 Patient NPO since Midnight. 12:24:54 Is patient on blood thinner?Yes 12:24:56 ACC The patient was administered the following blood thiners within the last 24 hours: ACCPlavix 12:24:58 Patient diabetic? Yes. 12:25:00 If diabetic: On Metformin? Unknown 12:25:15 RESERVE RT . ARM 12:25:38 Previous problem with sedation/anesthesia? No ? 12:25:57 Snore? Yes 12:25:59 Sleep apnea? No 12:25:59 Deviated septum? No 12:26:01 Opens mouth fully? Yes 12:26:02 Sticks out tongue? Yes 12:26:06 Airway obstruction? Yes PNEUMONIA 12:26:14 Dentures? No ? 12:26:19 Pre procedure: left dorsailis pedis pulse 1+ Palpable, but thready & weak; easily obliterated 12:26:22 Patient pain scale 0/10 ?. 12:26:27 IV patent on arrival in port with 0.9% NaCl at KVO. 12:26:30 Lab results completed and on chart. 12::31 Alarms reviewed by R. N. 12::31 Sharps counted by scrub and verified by R.N. 12:26:36 Use device set CATH PACK 12:26:37 ACIST Syringe (85096) opened to sterile field. 12:26:37 ACIST Hand Control (90128) opened to sterile field. 12:26:38 ACIST Manifold (95908) opened to sterile field. 12:26:38 Medline Cath Pack ([id number]) opened to sterile field. 12:26:38 Bag Decanter (2002) opened to sterile field. 12:26:39 EMERALD Guide Wire (243-348) opened to sterile field. 12:27:04 SHEATH 6FR [place] (UYT027) opened to sterile field. 12:27:04 CHOICE PT Extra Support 182cm wire ([id number]) opened to sterile field. 12:27:04 INFLATOR Merit BasixCompak (QW5825) opened to sterile field. 12:27:14 GUIDE 6FR XBLAD 4.0 catheter ([id number]) opened to sterile field. 12::19 --------ALL STOP TIME OUT------ 12::19 Final Timeout: patient, procedure, and site verified with staff and physician. All members of the team are in agreement. 12:27:21 Right groin site verified by team. 12:27:23 Fire Safety Assessment: A--An alcohol-based skin anteseptic being used preoperatively., C--Open oxygen or nitrous oxide is being used., D--An ESU, laser, or fiber-optic light is being used. 12:27:26 Physical assessment completed. ASA score P 3 - A patient with severe systemic disease as per Octavio Casey MD. 12:27:35 5) <15 or on dialysis Very severe, or end stage kidney failure. 12:27:55 Maximum allowable contrast dose (3.7 X eGFR X 0.75)17 ml. 12:27:59 Sedation plan: IV Moderate Sedation Medication:Versed, Fentanyl 12:29:28 Procedure started. 12:29:32 Local anesthetic to left femerol artery with Lidocaine 2% by Octavio Casey MD.INITIAL ACCESS ONLY 12:30:46 A 6 Fr Short sheath was inserted into the Right Femoral artery 12:31:13 6 Fr XBLAD 4 guide catheter was inserted over the wire 12:32:38 Pre PCI Site: [place] mLAD has 80% stenosis. 12:33:19 FFR/IFR wire advanced. 12:33:35 Heparin Bolus 4000 units I.V. was administered by Maryann Crisostomo RN; for anticoagulation; verified with dr casey 12:33:38 [place] Verrata Plus pressure wire (99527M) opened to sterile field. 12:34:07 Wire advanced across lesion. 12:34:23 mCirc lesion measured at .93 with IFR 12:35:17 IFR WIRE REDIRECTED TO THE LAD 12:35:19 Wire advanced across lesion. 12:35:22 mLAD lesion measured at .70 with IFR 12:36:05 ACT drawn and resulted at 312 seconds. (normal therapeutic range 180-240 seconds). 12:39:04 Place stent Inflation Number: 1 A JAH RX 3.5 x 12 stent ([id number]) was prepped and advanced across the Mid LAD . The stent was deployed at 17 BONI for 0:00 (min:sec) . 12:39:36 Stent catheter was removed intact over wire. 12:39:37 Wire removed. 12:39:37 Guide catheter removed. 12:39:43 EXOSEAL 6Fr (EX600) opened to sterile field. 12:40:39 Sheath removed intact; hemostasis achieved with Exoseal to the Right Femoral artery. 12:40:41 Procedure ended.(Physican Out) 12:40:53 Fluoroscopy time 03.60 minutes. 12:41:04 Flurop Dose total: 563 12:41:04 Fluoroscopy dose: 563 mGy 12:41:14 Dose Area Product 89251 mGy/cm. 12:41:18 Contrast amount:Isovue 300 69ml. 12:41:22 Maximum allowable dose exceeded? Yes. 12:41:23 Sharps counted by scrub and verified by R.N. 12:41:26 Post-op/insertion site Left Femoral artery dressed using a 4 x 4 and Tegaderm. 12:41:29 Post-procedure physical assessment completed. ASA score P 3 - A patient with severe systemic disease as per Octavio Casey MD. 12:41:33 Post procedure rhythm: unchanged. 12:41:36 Estimated blood loss: 10 ml 12:41:38 Post procedure instruction explained to patient.Patient verbalizes understanding. 12:41:38 Patient needs reinforcement of post procedure teaching. 12:41:52 Procedure type changed to Cath procedure, Diagnostic procedure, FFR/IVUS, FFR Initial, FFR Additional, PCI procedure, Coronary Stent, Coronary Stent Initial 12:43:54 Procedure and supply charges have been captured, reviewed, submitted and are correct. 12:44:00 Procedure Complication : No complications 12:44:16 Vital chart was stopped 12:44:17 See physician's report for complete and final results. 12:44:19 Report given to ICU. 12:44:22 Patient transfered to ICU with Bed. 12:44:24 Procedure ended. 12:44:24 Full Disclosure recording stopped 12:44:28 End room use (Document Last) Intervention Summary Intervention Notes Time ActionType Lesion and Equipment Used Action# Pressure Duration Attributes 12:39:04 Place stent Mid LAD JAH RX 3.5 x 1 17 00:00 12 stent ([id number]) Device Usage Item Name Manufacture Quantity Catalog Number Hospital Part Current Minimal Lot# / Charge Number Stock Stock Serial# Code ACIST Syringe Acist 1 38126 781149 992294 612721 20 (06977) Medical Systems Inc ACIST Hand Acist 1 00959 752955 371332 354835 5 Control Medical (01417) Systems Inc ACIST Manifold Acist 1 20803 937100 397113 951650 5 (10738) Medical Systems Inc Medline Cath Medline 1 [id number] 102264 42231 637325 5 Pack ([id number]) Bag Decanter Microtek 1 2001S 760789 33411 069704 5 (2001S) Medical Inc. EMERALD Guide Cardinal 1 502-455 472178 536449 775858 5 Wire (502-455) Health SHEATH 6FR Terumo 1 KUI681 001734 712077 202648 40 [place] (SHH134) CHOICE PT [place] 1 [id number] 925323 356589 699807 5 Extra Support Scientific 182cm wire ([id number]) INFLATOR Merit Merit 1 CW8659 568136 977501 436980 15 eTruck Medical ([id number]) GUIDE 6FR Cardinal 1 [id number] 982201 415301 078310 3 XBLAD 4.0 Health catheter ([id number]) JAH RX 3.5 x Medtronic 1 [id number] 086288 8261489 557855 5 [id number] 12 stent ([id number]) EXOSEAL 6Fr Cardinal 1 EX600 414811 044269 136067 10 (EX600) Health [place] 1 [id number] 664401 214429116 102051 5 Verrata Plus pressure wire ([id number]) Signature Audit [place] Stage Time Signature Unsigned Intra-Procedure 10/24/2018 Carol Garcia 12:50:37 PM RT(R) Signatures Performing Physician : Signature : Octavio Casey MD Date : Time : Monitor : Carol Garcia Signature : RT Date : Time : Nurse : Maryann Crisostomo RN Signature : Date : Time : [address] [place] [address]
[~2018-10-14 11:01] MED LIST changes: +AMOXICILLIN500 M1 PO
[2018-10-14] MEDS ORDERED: REGLAN10 MG PO (11:13)
[2018-10-14] MEDS ORDERED: LEVOXYL125 MCG PO (11:14)
[2018-10-14] MEDS ORDERED: CIPRO500 MG PO (11:14)
[2018-10-14 11:54] LABS: BASOPHILS 0.2 % (0-2); EOSINOPHILS 0.7 % (0-7); HEMATOCRIT 29.8 % (42.0-54.0); IMMATURE GRANULOCYTES 0.2 % (0-5); LYMPHOCYTES 6.3 % (15-50); MCHC 33.6 g/dL (31.0-37.0); MCV 101.4 fL (80.0-100.0); MEAN PLATELET VOLUME 9.6 fL (7.4-10.4); MONOCYTES 7.4 % (2-11); NEUTROPHILS 85.2 % (40-80); PLATELET COUNT 227 10x3/uL (130-400); RBC 2.94 10x6/uL (4.20-6.10); RDW 13.7 % (11.5-14.5); WBC 12.9 10x3/uL (4.8-10.8)
[2018-10-14 12:10] LABS: ALBUMIN 3.5 g/dL (3.4-5.0); ALKALINE PHOSPHATASE 66 U/L (46-116); ALT (SGPT) 19 U/L (10-68); BILIRUBIN - TOTAL 0.98 mg/dL (0.2-1.3); CALC OSMOLALITY 295 mosm/kg (275-300); CALCIUM 8.6 mg/dL (8.5-10.1); CARBON DIOXIDE 25.6 mmol/L (21.0-32.0); CHLORIDE - SERUM 99 mmol/L (98-107); CREATININE - SERUM 7.9 mg/dL (0.6-1.3); GLUCOSE 130 mg/dL (74-106); POTASSIUM - SERUM 4.6 mmol/L (3.5-5.1); PROTEIN - SERUM 7.3 g/dL (6.4-8.2); SODIUM 139 mmol/L (136-145); UREA NITROGEN 56 mg/dL (7-18); eGFR NON AFRICAN AMERICAN 7 mL/min (90-120)
[2018-10-14 12:13] LABS: APTT 39.5 SECONDS (22.8-39.4); INR 1.31 (0.85-1.17); PROTIME 15.7 SECONDS (11.6-15.0)
[2018-10-14 12:26] LABS: MAGNESIUM - SERUM 1.8 mg/dL (1.8-2.4)
[2018-10-14 12:27] LABS: CKMB 7.5 U/L (0.0-3.6); CREATINE KINASE 259 UL (21-232)
[2018-10-14 12:29] LABS: TROPONIN-I 6.196 ng/mL (0.000-0.060)
[2018-10-14 12:43] VITALS: BP 111/66
--- NOTE | 2018-10-14 12:44 | NUR ---
LEFT ARM RESERVE - DIALYSIS PORT
--- NOTE | 2018-10-14 13:04 | NUR ---
DR BURROWS NOTIFIED OF PT TNI 6. VERBAL ORDER TO MAINTAIN PT NPO STATUS IN ANTICIPATION OF HEART CATH LATER TODAY.
--- NOTE | 2018-10-14 13:34 | NUR ---
LEFT FOR STICKER OPERATOR
--- NOTE | 2018-10-14 15:28 | NUR ---
PATIENT ARRIVED TO THE ER, AND WAS GOING TO BE TRANSFERED TO THE FLOOR. THEN HE HAD A ELEVATED TRIPONIN AND HAD TO GO STRIAGHT TO [facility] WERE HE HAD [address] BURROWS[address] HE IS NOW ON THE FLOOR. HE HAS A FEMSTOP TO THE RIGHT FEMORAL. HE IS LAYING FLAT AND IS RESTING QUIETLY. FAMILY AT BEDSIDE. IV INFUSING ORDERED. RIGHT ARM RESERVE SIGN ON WALL.
[2018-10-14 15:29] VITALS: BP 100/50
[2018-10-14 15:49] VITALS: BP 100/55; BMI 25.8
--- NOTE | 2018-10-14 16:59 | NUR ---
PATIENT CAN SIT UP AT 1830.HE CAME OUT OF SURGERY AT 1430. HE STILL HAS A FEMSTOP IN PLACE.
--- NOTE | 2018-10-14 17:01 | NUR ---
SCD ON LEFT LEG ONLY UNTIL FEMSTOP IS REMOVED.
[2018-10-14 19:01] LABS: APPEARANCE HAZY (CLEAR); BILIRUBIN NEGATIVE (NEGATIVE); COLOR YELLOW (YELLOW); GLUCOSE NEGATIVE (NEGATIVE); KETONE NEGATIVE (NEGATIVE); NITRITE NEGATIVE (NEGATIVE); PROTEIN 1+ mg/dL (NEGATIVE); UROBILINOGEN NORMAL (NORMAL)
[2018-10-14 19:02] LABS: BACTERIA MODERATE /hpf (NONE SEEN); RED CELLS - URINE 0-5 /hpf (0-5); WHITE CELLS - URINE 25-50 /hpf (0-5)
--- NOTE | 2018-10-14 19:19 | NUR ---
REMOVED FEMSTOP, AND APPLIED A DRESSING OVER SITE. NO BLEEDING NOTED.
--- NOTE | 2018-10-14 19:30 | NUR ---
RECEIVED REPORT, WILL ASSUME CARE OF PT, DRESSING TO R.JOHNIN-DCI, ASKING FOR BREATHING TREATMENT, WILL CALL RT, BED IS LOW, SRX2, CALL LIGHT IN REACH, WILL CONTINUE PLAN OF CARE
[2018-10-14 20:00] VITALS: BP 104/59
[2018-10-15] VITALS (19 sets, daily range): BP systolic 92–130; BP diastolic 49–73; Ht 182.9 cm; Wt 94.6 kg
[2018-10-15 01:35] LABS: BASOPHILS 0.1 % (0-2); EOSINOPHILS 0.1 % (0-7); HEMATOCRIT 28.7 % (42.0-54.0); HEMOGLOBIN 9.4 g/dL (13.5-17.5); IMMATURE GRANULOCYTES 0.4 % (0-5); LYMPHOCYTES 5.2 % (15-50); MCH 33.6 pg (26.0-34.0); MCHC 32.8 g/dL (31.0-37.0); MCV 102.5 fL (80.0-100.0); MEAN PLATELET VOLUME 9.9 fL (7.4-10.4); MONOCYTES 8.9 % (2-11); NEUTROPHILS 85.3 % (40-80); PLATELET COUNT 208 10x3/uL (130-400); RDW 13.6 % (11.5-14.5); WBC 10.6 10x3/uL (4.8-10.8)
[2018-10-15 02:00] LABS: ALBUMIN 3.1 g/dL (3.4-5.0); BILIRUBIN - TOTAL 1.21 mg/dL (0.2-1.3); CALCIUM 8.1 mg/dL (8.5-10.1); PHOSPHOROUS 7.6 mg/dL (2.5-4.9); PROTEIN - SERUM 6.9 g/dL (6.4-8.2); VANCOMYCIN - RANDOM 13.3 ug/mL (10.0-20.0)
[2018-10-15 02:14] LABS: ANION GAP 26.8 mmol/L (8-16); CARBON DIOXIDE 19.1 mmol/L (21.0-32.0); CREATININE - SERUM 10.1 mg/dL (0.6-1.3); POTASSIUM - SERUM 5.9 mmol/L (3.5-5.1)
[2018-10-15 02:51] LABS: ERYTHROCYTE SEDIMENTATION RATE 38 mm/hr (0-20)
[2018-10-15 03:09] LABS: ALBUMIN 3.1 g/dL (3.4-5.0); ANION GAP 31.6 mmol/L (8-16); BILIRUBIN - TOTAL 1.23 mg/dL (0.2-1.3); CALCIUM 7.9 mg/dL (8.5-10.1); CARBON DIOXIDE 12.4 mmol/L (21.0-32.0); CREATININE - SERUM 10.3 mg/dL (0.6-1.3); PROTEIN - SERUM 7.4 g/dL (6.4-8.2)
--- NOTE | 2018-10-15 03:30 | NUR ---
SPOKE WITH SEVERIANO BLUM ABOUT LABS, WAS ORDER TO GIVE 4 MG BUMEX NOW, IF PT DOESNT PUT OUT 250 ML IN ONE HR, ORDER ABG, ALSO ORDER CHEST X-RAY
--- NOTE | 2018-10-15 04:52 | NUR ---
PT ELVIS HAD ANY OUTPUT AFTER I GAVE BUMEX, SO ORDERED ABG
--- NOTE | 2018-10-15 06:18 | NUR ---
RECIEVED PT TO ROOM 2309 VIA BED ACCOMPANIED BY FLOOR NURSE AND CELLULOID TRIMMER, ASSISTED TO ICU BED AND MONITORS ESTABLISHED. HR ST ON CM, RR TACHYPNEIC AT 33, O2 SAT 98% VIA VENTI MASK, EXP WHEEZES AUSC BILATERALLY WITH DIM BREATH SOUNDS. PT DENIES PAIN, ASSISTED TO UPRIGHT POSITION, CALL LIGHT IN REACH, WILL MONITOR.
--- NOTE | 2018-10-15 06:22 | NUR ---
PT TRANFERED TO ICU
--- NOTE | 2018-10-15 08:10 | NUR ---
UP IN BED AWAKE AT THIS TIME. VSS. PT IS HARD OF HEARING. AT BEDSIDE. 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 PT IS ALERT AND ORIENTED. DENIES ANY NEESD. WILL CONTINUE PLAN OF CARE.
--- NOTE | 2018-10-15 10:09 | NUR ---
NO ACUTE DISTRESS NOTED. FAMILY AT BEDSIDE VISITING WITH PT. NOTED PHYSICIANS HAVE SPOKEN WITH PTS FAMILY AND UPDATES PROVIDED. NO FURTHER QUESTIONS NOTED. VSS. PT DENIES ANY NEEDS. SITTING UP IN BED. WILL CONTINUE PLAN OF CARE.
--- NOTE | 2018-10-15 12:27 | NUR ---
WILL ADMIN SCHEDULED ANTIBIOTICS WHEN DIALYSIS COMPLETE.
--- NOTE | 2018-10-15 14:39 | NUR ---
LT FOREARM IV NO LONGER PATENT, DC AT THIS TIME, CATHETER TIP INTACT. ATTEMPTING TO RECITE IV.
--- NOTE | 2018-10-15 15:21 | NUR ---
HAVE NOT BEEN UNABLE TO START IV ANTIBIOTICS AT THIS TIME DUE TO IV TO LT FOREARM NO LONGER PATENT, LEAKS ON ARM WHEN ATTEMPTING TO FLUSH. 5 ATTEMPTS NOTED USING 3 TOTAL NURSES WITH NO SUCCESS. DR KENDRICK NOTIFIED OF THIS, STATED TO CONSULT SURGERY FOR CVL PLACEMENT. DR CONTRERAS CALLED AND NOTIFIED. VSS. WILL CONTINUE PLAN OF CARE.
--- NOTE | 2018-10-15 16:39 | NUR ---
PT REQUESTED SOMETHNG TO HELP HIS COUGH, PER DR LEÓN, ADMIN TESSALON PEARLES 200MG TID. ORDER PLACED. NO ACUTE DISTRESS NOTED. VSS. WILL CONTINUE PLAN OF CARE.
--- NOTE | 2018-10-15 17:54 | NUR ---
CVL PLACED TO LT SUBCLAVIN BY DR CONTRERAS. PER PHYSICIAN CVL IS GOOD FOR USAGE.
--- NOTE | 2018-10-15 17:58 | NUR ---
GRANT RESCHEDULED AT THIS TIME SINCE HAVE IV ACCESS AND ABLE TO ADMIN NOW. ATTEMPTED TO SCHEDULED NEXT DOSE AT 8 HOURS FROM THIS TIME, (SINCE PER ORDERS STATE TO ADMIN Q8H) UNABLE TO RESCHEDULE AT THIS TIME. PHARMACY NOT HERE TO HELP WITH RETIMING. WILL NOTIFY RECIEVING NURSE OF THIS, AND WILL NOTIFY PHARMACY OF THIS IN AM WHEN THEY RETURN TO THE HOSPITAL.
--- NOTE | 2018-10-15 19:15 | NUR ---
RECIEVED PT LYING ON LEFT SIDE TRYING TO ROLL OVER IN BED. LINENS WERE DIRTY COMPLETE BED CHANGED. PULLED PT UP IN BED. LEFT CVL NOTED WITH DRY BLOOD ON ARM AND MINIMAL BLOOD AROUND DRESSING THATS FRESH. WILL CONTINUE TO MONITOR DRAINAGE FROM SITE. PT ALERT AND ORIENTATED. DENIES NEEDS AT THIS TIME. CL IN REACH. CPOC
--- NOTE | 2018-10-15 21:58 | NUR ---
PLACED SAND BAG ON LEFT CVL DUE TO DRAINAGE WILL CONTINUE TO MONITOR.
--- NOTE | 2018-10-15 23:00 | NUR ---
PT LYING IN BED. EYES OPEN. DENIES NEEDS. PT COMPLAINING OF COUGH AND WANTING ANOTHER TESSALON MARGUERITE BUT THIS NURSE EDUCATED PT THAT THEY WERE SCHEDULED AND ONLY CAN TAKE THEM THOSE TIMES. WILL CONTINUE TO MONITOR. BLEEDING HAS SLOWED AND A MINIMAL AMOUNT IS NOTED ON SAND BAG.
[2018-10-16] VITALS (24 sets, daily range): BP systolic 91–139; BP diastolic 49–81
--- NOTE | 2018-10-16 01:00 | NUR ---
PT RESTING QUIETLY. CL IN REACH. DENIES NEEDS AT THIS TIME. SAND BAG REMOVED PER REQUEST AND WILL CONTINUE TO MONITOR AND RECHECK IN 15 MIN
--- NOTE | 2018-10-16 01:15 | NUR ---
NO ADDITIONAL BLEEDING NOTED TO GAUZE PLACED BELOW CVL DRESSING. SAND BAG OKAY TO LEAVE OFF FOR NOW. WILL CONTINUE TO MONITOR.
--- NOTE | 2018-10-16 02:56 | NUR ---
PT RESTING QUIETLY. EYES CLOSED. NO DISTRESS NOTED. WCTM
[2018-10-16 04:41] LABS: BASOPHILS 0.2 % (0-2); EOSINOPHILS 0.8 % (0-7); HEMATOCRIT 27.8 % (42.0-54.0); HEMOGLOBIN 9.6 g/dL (13.5-17.5); IMMATURE GRANULOCYTES 0.3 % (0-5); LYMPHOCYTES 8.4 % (15-50); MCH 34.5 pg (26.0-34.0); MCHC 34.5 g/dL (31.0-37.0); MEAN PLATELET VOLUME 9.9 fL (7.4-10.4); MONOCYTES 6.2 % (2-11); NEUTROPHILS 84.1 % (40-80); PLATELET COUNT 201 10x3/uL (130-400); RBC 2.78 10x6/uL (4.20-6.10); RDW 13.4 % (11.5-14.5); WBC 10.9 10x3/uL (4.8-10.8)
--- NOTE | 2018-10-16 04:55 | NUR ---
PT SITTING UP IN BED DRINKING COFFEE AT BEDSIDE. DENIES NEEDS. CL IN REACH. WCTM
[2018-10-16 05:16] LABS: ALBUMIN 3.2 g/dL (3.4-5.0); BILIRUBIN - DIRECT 0.61 mg/dL (0.00-0.30); BILIRUBIN - INDIRECT 0.59 mg/dL (0.00-1.00); BILIRUBIN - TOTAL 1.2 mg/dL (0.2-1.3); CALCIUM 8.2 mg/dL (8.5-10.1); PHOSPHOROUS 7.3 mg/dL (2.5-4.9); PROTEIN - SERUM 6.9 g/dL (6.4-8.2); VANCOMYCIN - RANDOM 22.9 ug/mL (10.0-20.0)
[2018-10-16 05:17] LABS: ANION GAP 19.3 mmol/L (8-16); CARBON DIOXIDE 26.4 mmol/L (21.0-32.0); CREATININE - SERUM 7.4 mg/dL (0.6-1.3); POTASSIUM - SERUM 4.7 mmol/L (3.5-5.1)
--- NOTE | 2018-10-16 07:18 | NUR ---
LYING IN BED AT THIS TIME RESTING WITH EYES CLOSED. RESPIRATIONS STEADY AND UNLABORED RATE. AWAKENS EASILY WHEN SPOKEN TO. VSS. WILL CONTINUE PLAN OF CARE.
[2018-10-16 07:42] LABS: PROTIME 18.5 SECONDS (11.6-15.0)
[2018-10-16 07:43] LABS: INR 1.61 (0.85-1.17)
--- NOTE | 2018-10-16 08:36 | NUR ---
UP IN BED EATIN BREAKFAST AT THIS TIME WITH ASSIST FROM . NO ACUTE DISTRESS NOTED. VSS. WILL CONTINUE PLAN OF CARE.
--- NOTE | 2018-10-16 10:47 | NUR ---
PT REQUESTED TO BE PULLED UP IN BED AT THIS TIME. WHILE PT WAS REPOSITIONED, HIS BREATHING BECAME LABORED AND BEGAN TO WHEEZE, AND THEN HIS HEAD AND NECK BECAME STIFF AND PT HEAD WAS TURNED UP TO THE LEFT WITH EYES LOOKING UP TO THE LEFT FOR 2-3 SECONDS, PT THEN BEGAN TO THRASH ARMS AND LEGS FOR ABOUT 5 SECONDS. AFTER THIS PT CONTINUED FOR ABOUT 2-3 SECONDS TO BE STIFF AND STARING OFF BEFORE HE BEGAN TO RELAX AND TALK AND FOLLOW COMMANDS. DURING THIS EVENT HE DID NOT FOLLOW COMMANDS NOR DID HE TALK. ENTIRE EVENT WAS ABOUT 10 SECONDS TOTAL. PT HAS NO RECALL OF EVENT, ONLY STATED HE WAS NERVOUS DURING REPOSITIONING. DR KENDRICK ON UNIT, NOTIFIED OF THIS, STATED WILL ORDER A HEAD CT. VSS. WILL CONTINUE TO CLOSELY OBSERVE.
--- NOTE | 2018-10-16 12:01 | NUR ---
UP IN BED AWAKE AT THIS TIME. NO ACUTE DISTRESS NOTED. CALL LIGHT IN REACH. VSS. WILL CONTINUE PLAN OF CARE.
--- NOTE | 2018-10-16 12:37 | NUR ---
PT COMPLAINT OF INTERMITTENT LEG CRAMPING. DR KENDRICK STATED TO ADMIN NEURONTIN 100MG Q8H PRN.
--- NOTE | 2018-10-16 12:51 | NUR ---
PT CONTINUES TO HAVE DRY HACKING COUGH WHICH IS NONPRODUCTIVE, PT STATES HE HAS COUGHED SO MUCH HE IS SORE FROM IT. DR LEÓN NOTIFIED OF THIS, ORDER RECIEVED.
--- NOTE | 2018-10-16 13:56 | NUR ---
UP IN BED RESTING AT THIS TIME. RESPIRATIONS STEADY AND UNLABORED RATE. NO ACUTE DISTRESS NOTED. AWAKENS EASILY WHEN SPOKEN TO. VSS. WILL CONTINUE PLAN OF CARE.
--- NOTE | 2018-10-16 15:59 | NUR ---
CHG BATH GIVEN AT THIS TIME WITH TOTAL LINEN CHANGE. NO ACUTE DISTRESS NOTED. UP IN BED WATCHING TV. CALL LIGHT IN REACH. WILL CONTINUE PLAN OF CARE.
--- NOTE | 2018-10-16 17:22 | NUR ---
UP IN BED WATCHING TV AT THIS TIME. NO ACUTE DISTRESS NOTED. VSS. CALL LIGHT IN REACH. WILL CONTINUE PLAN OF CARE.
--- NOTE | 2018-10-16 19:00 | NUR ---
REPORT RECEIVED. RECEIVED PATIENT IN BED, AWAKE AND ALERT. ORIENTED X 4. SPEECH CLEAR. MONITORS CONNECTED TO PATIENT WITH ALARMS SET. VSS. CALL LIGHT IN REACH AND ABLE TO UTILIZE TO MAKE NEEDS KNOWN. ASSESSMENT COMPLETED PER FLOW SHEET WITH NO ACUTE DISTRESS OBSERVED.
--- NOTE | 2018-10-16 21:00 | NUR ---
AT BEDSIDE, UPDATE GIVEN. VSS CALL LIGHT IN REACH
--- NOTE | 2018-10-16 22:00 | NUR ---
SPO2 88% CHANGED TO HIGH FLOW NC 4L/MIN O2 SAT UP TO 90% RT NOTIFIED
--- NOTE | 2018-10-16 23:00 | NUR ---
AT BEDSIDE, ASSISTED WITH TURNING AND REPOSITIONING. ASSESSMENT COMPLETED PER FLOW SHEET WITH NO ACUTE DISTRESS OBSERVED.VSS CALL LIGHT IN REACH
[2018-10-17] VITALS (13 sets, daily range): BP systolic 93–102; BP diastolic 54–70
--- NOTE | 2018-10-17 01:00 | NUR ---
RESTING WITH EYES CLOSED, EASILY ROUSED AND ALERT. VSS
--- NOTE | 2018-10-17 03:00 | NUR ---
REASSESSMENT COMPLETED WITH NO CHANGES OR ACUTE DISTRESS OBSERVED. VSS
--- NOTE | 2018-10-17 04:07 | NUR ---
PT ASSISTED WITH REPOSITIONING IN BED. PULLED UP IN BED. PT ALERT AND ORIENTED. BED LOW POSITION CL IN REACH
[2018-10-17 05:20] LABS: INR 1.45 (0.85-1.17)
[2018-10-17 05:21] LABS: BASOPHILS 0.2 % (0-2); EOSINOPHILS 1.8 % (0-7); HEMATOCRIT 26.6 % (42.0-54.0); IMMATURE GRANULOCYTES 0.2 % (0-5); LYMPHOCYTES 7.5 % (15-50); MCH 33.6 pg (26.0-34.0); MCHC 33.8 g/dL (31.0-37.0); MCV 99.3 fL (80.0-100.0); MONOCYTES 7.2 % (2-11); NEUTROPHILS 83.1 % (40-80); PLATELET COUNT 207 10x3/uL (130-400); RBC 2.68 10x6/uL (4.20-6.10); RDW 13.4 % (11.5-14.5); WBC 10.9 10x3/uL (4.8-10.8)
--- NOTE | 2018-10-17 05:23 | NUR ---
CVL DRESSING CHANGED USING STERILE TECHNIQUE. PT TOLERATED WELL
[2018-10-17 05:32] LABS: ANION GAP 15.5 mmol/L (8-16); BILIRUBIN - DIRECT 0.59 mg/dL (0.00-0.30); BILIRUBIN - INDIRECT 0.63 mg/dL (0.00-1.00); BILIRUBIN - TOTAL 1.22 mg/dL (0.2-1.3); CALCIUM 7.5 mg/dL (8.5-10.1); CARBON DIOXIDE 29.2 mmol/L (21.0-32.0); PHOSPHOROUS 8.7 mg/dL (2.5-4.9); POTASSIUM - SERUM 4.7 mmol/L (3.5-5.1); PROTEIN - SERUM 6.7 g/dL (6.4-8.2); VANCOMYCIN - RANDOM 17.8 ug/mL (10.0-20.0)
[2018-10-17 05:39] LABS: CREATININE - SERUM 9.7 mg/dL (0.6-1.3)
--- NOTE | 2018-10-17 07:15 | NUR ---
REPORT RECIEVED FROM SHANI PERLA. PATIENT IS ALERT AND ORIENTED. HOB 30 DEGREES. UPDRAFT BEING DONE AT THIS TIME. UPDATED BOARDS. PATIENT DENIES NEEDS OR PAIN AT THIS TIME. EDUCATED ON THE NEED OF DIALYSIS MWF. SUICIDE SCREENING DONE AT THIS TIME. 4 L HIGH FLOW. NO URINE PRODUCED LAST NIGHT. PATIENT STATES HE NORMALY URINATES AT HOME. VSS. WILL CONTINUE TO MONITOR.
--- NOTE | 2018-10-17 08:09 | NUR ---
PATIENT REPORTED A PRODUCTIVE COUGH. I GAVE PATIENT A SPECIMEN CUP AND INSTRUCTED HIM TO COUGH IN IT AND PRESS THE CALL LIGHT WHEN ACHEIEVED.
--- NOTE | 2018-10-17 09:30 | NUR ---
PATIENT RESTING. DR KENDRICK SPOKE WITH FAMILY AND GAVE UPDATES. HOB AT 30 DEGREES. AROUSES EASILY TO SPEECH. NO CHANGES NOTED. WILL CONTINUE TO MONITOR
--- NOTE | 2018-10-17 09:41 | NUR ---
Nutrition follow-up: Diet: Renal ADA consistent CHO PO intake ~60% average of last 3 meals Labs reviewed; dialysis today Wt: 190# PO intake fair at this time. RDN following.
--- NOTE | 2018-10-17 11:37 | NUR ---
PATIENT REQUESTED 2 UNITS OF INSULIN FOR A BLOOD SUGAR OF 190. WILL MONITOR BLOOD SUGAR EVERY HOUR.
--- NOTE | 2018-10-17 11:43 | NUR ---
DR LEÓN AT BEDSIDE. UPDATE GIVEN.
--- NOTE | 2018-10-17 13:23 | NUR ---
PATIENT ON SIDE OF BED. PATIENT REFUSED PHYSICAL THERAPY. REFUSED TO STAND UP. VSS. AWAITING ON DIALYSIS. NO DISTRESS NOTED. BM. COMPLETE LINEN CHANGE AND CHG BATH GIVEN AT THIS TIME
--- NOTE | 2018-10-17 15:30 | NUR ---
PATIENT SLEEPING. EASILY AROUSES TO VOICE. COVERED PATIENT UP. PROVIDED COLD ICE WATER. AWAITING DIALYSIS. NO DISTRESS NOTED. 2 LNC. VSS. DENIES NEEDS OR PAIN AT THIS TIME. WILL CONTINUE TO MONITOR.
--- NOTE | 2018-10-17 15:35 | MORECARE ---
CASE MANAGEMENT DISCHARGE SUMMARY PATIENT: FABIEN DOWNEY UNIT: [id number] ADM DATE: 10/14/18 AGE: 77 : 38 SEX: M ROOM/BED: D.2309 AUTHOR: HERMILO RIZO PHYSICIAN: REFERRING PHYSICIAN: ANIYA KENDRICK MD DATE OF SERVICE: 10/17/18 Discharge Plan Patient Name: FABIEN DOWNEY [facility] [facility] 1940 Planned Disposition: Home Anticipated Discharge Date: Discharge Date: Expected LOS: Initial Reviewer: [email or web address] Initial Review Date: 10/17/2018 Generated: 10/17/18 4:35 pm DCPIA - Discharge Planning Initial Assessment Updated by [email or web address]: Mikayla Magaña on 10/17/18 3:32 pm * Is the patient Alert and Oriented? Yes * How many steps to enter\exit or inside your home? * PCP Pee * [facility] * Preadmission Environment Home with Family * ADLs Independent * Other Equipment WALKER, W/C , ROLLING WALKER * List name and contact numbers for known caregivers / representatives who currently or will assist patient after discharge: HARVINDER DOWNEY - - [phone] * Verbal permission to speak to the caregivers and representatives has been obtained from the patient. Yes * Please name any agencies selected above. [facility] * Additional services required to return to the preadmission environment? No * Can the patient safely return to the preadmission environment? Yes * Has this patient been hospitalized within the prior 30 days at any hospital? No Patient Name: FABIEN DOWNEY Page [id number] at 1535 All edits/amendments must be made on the electronic document DICTATION DATE: 10/17/18 1534 ORACLE OBIEE DEVELOPER: BRONWYN 10/17/18 1534 RPT#: [id number] DC DATE: STATUS: ADM IN [address] [place] [address] END OF REPORT
--- NOTE | 2018-10-17 15:44 | MORECARE ---
CASE MANAGEMENT DISCHARGE SUMMARY PATIENT: FABIEN DOWNEY UNIT: [id number] ADM DATE: 10/14/18 AGE: 77 : 38 SEX: M ROOM/BED: D.2309 AUTHOR: HERMILO RIZO PHYSICIAN: REFERRING PHYSICIAN: ANIYA WINCHESTER MD DATE OF SERVICE: 10/17/18 Discharge Plan Patient Name: FABIEN DOWNEY Facility: [facility]:[place] : 1940 Planned Disposition: Home Anticipated Discharge Date: Discharge Date: Expected LOS: Initial Reviewer: [email or web address] Initial Review Date: 10/17/2018 Generated: 10/17/18 4:44 pm Comments DCP- Discharge Planning Updated by [email or web address]: Mikayla Magaña on 10/17/18 2:[address] Patient Name: FABIEN DOWNEY Admission Status: ER Accout number: [id number] Admission Date: 10-14-2018 : 1940 Admission Diagnosis: Attending: Aniya Winchester Current LOS: 3 Anticipated DC Date: Planned Disposition: Home Primary Insurance: [facility] [employer] Discharge Planning Comments: CM met with patient at bedside after explaining CM role and obtaining verbal consent. Patient lives at home with his Rosana where he is independent with his care and plans to return there upon discharge. Patient feels this would be a safe discharge. CM discussed availability / needs of home health and medical equipment. Patient denies any discharge needs at this time. Patient states that he has House Calls. Patient has HD MWF @1100 @ [facility] Patient states he will have his family drive him home upon discharge. CM will continue to follow and assist as needed with discharge planning / needs. Filer Repairer: Mikayla Magaña DCPIA - Discharge Planning Initial Assessment Updated by [email or web address]: Mikayla Magaña on 10/17/18 3:32 pm * Is the patient Alert and Oriented? Yes * How many steps to enter\exit or inside your home? * PCP Pee * [facility] * Preadmission Environment Home with Family * ADLs Independent * Other Equipment WALKER, W/C , ROLLING WALKER * List name and contact numbers for known caregivers / representatives who currently or will assist patient after discharge: ROSANA DOWNEY - - [phone] * Verbal permission to speak to the caregivers and representatives has been obtained from the patient. Yes * Please name any agencies selected above. [facility] * Additional services required to return to the preadmission environment? No * Can the patient safely return to the preadmission environment? Yes * Has this patient been hospitalized within the prior 30 days at any hospital? No Last DP export: 10/17/18 2:35 pm Patient Name: FABIEN DOWNEY Page [id number] at 1544 All edits/amendments must be made on the electronic document DICTATION DATE: 10/17/18 1543 CONTRACT LAW SPECIALIST: BRONWYN 10/17/18 1543 RPT#: [id number] [place] DATE: STATUS: ADM IN [facility] [address] [place] [address] END OF REPORT
--- NOTE | 2018-10-17 17:41 | NUR ---
PATIENT RESTING. FAMILY AT BEDSIDE. AWAITING DIALYSIS. VSS. WILL CONTINUE TO MONITOR.
--- NOTE | 2018-10-17 19:20 | NUR ---
REC'D TO CARE, EXTRUDER OPERATOR HORIZONTAL PER FLOWSHEET. PT AWAKENS EASILY, ORIENTED, DOUGLAS. VSS. R ARM FISTULA NOTED. R GROIN DSG C/D/I. ALARMS ON AND C/L IN REACH.
--- NOTE | 2018-10-17 20:40 | NUR ---
AT , UPDATE GIVEN AND QUESTIONS ANSWERED. STILL AWAITING HD.
--- NOTE | 2018-10-17 21:20 | NUR ---
LARGE DARK BROWN/BLACK LOOSE STOOL. AYANNA-CARE DONE, PADS CHANGED. SAMPLE TO LAB. HD STILL IN PROCESS.
--- NOTE | 2018-10-17 23:00 | NUR ---
PT RECEIVING DIALYSIS AT THIS TIME.
[2018-10-18] VITALS (7 sets, daily range): BP systolic 84–116; BP diastolic 41–62
--- NOTE | 2018-10-18 03:10 | NUR ---
PT RESTING IN BED, VITALS STABLE. CONTINUES TO COUGH OCCASIONALLY, NON-PRODUCTIVE. WILL CONTINUE TO MONITOR.
[2018-10-18 05:03] LABS: BASOPHILS 0.2 % (0-2); EOSINOPHILS 2.3 % (0-7); HEMATOCRIT 26.5 % (42.0-54.0); IMMATURE GRANULOCYTES 0.2 % (0-5); MCH 33.7 pg (26.0-34.0); MCV 99.3 fL (80.0-100.0); MEAN PLATELET VOLUME 9.9 fL (7.4-10.4); MONOCYTES 8.6 % (2-11); NEUTROPHILS 78.7 % (40-80); PLATELET COUNT 187 10x3/uL (130-400); RBC 2.67 10x6/uL (4.20-6.10); RDW 13.3 % (11.5-14.5); WBC 9.8 10x3/uL (4.8-10.8)
--- NOTE | 2018-10-18 05:16 | NUR ---
PT RESTING IN BED, AM LABS DRAWN. VITALS STABLE, WILL CONTINUE TO MONITOR.
[2018-10-18 05:24] LABS: ALBUMIN 2.9 g/dL (3.4-5.0); ANION GAP 13.4 mmol/L (8-16); BILIRUBIN - DIRECT 0.5 mg/dL (0.00-0.30); BILIRUBIN - INDIRECT 0.76 mg/dL (0.00-1.00); BILIRUBIN - TOTAL 1.26 mg/dL (0.2-1.3); CARBON DIOXIDE 30.6 mmol/L (21.0-32.0); PHOSPHOROUS 6.9 mg/dL (2.5-4.9); PROTEIN - SERUM 6.9 g/dL (6.4-8.2); VANCOMYCIN - RANDOM 26.1 ug/mL (10.0-20.0)
[2018-10-18 05:36] LABS: CREATININE - SERUM 6.6 mg/dL (0.6-1.3)
--- NOTE | 2018-10-18 07:15 | NUR ---
PATIENT IS ALERT AND ORIENTED. HOB 50 DEGREES. EXPIRATORY WHEEZES BILATERAL IN UPPER LOBES. LOWER LOBES DIMINISHED. CENTRAL LINE LINED AND CAPPED. NO DISTRESS NOTED AT THIS TIME. HE EASILY AROUSES TO VOICE. 2 L NC 95%. DENIES NEEDS AND PAIN. AT BEDSIDE FEEDING BREAKFAST.
--- NOTE | 2018-10-18 09:00 | NUR ---
PATIENT HAD A BOWEL MOVEMENT.
--- NOTE | 2018-10-18 09:20 | NUR ---
ANTONINO WITH ALESHA TO GIVE REPORT.
--- NOTE | 2018-10-18 12:12 | NUR ---
BLOOD SUGAR OF 161, NO COVERAGE NEEDED PER S/S. REPOSITIONED PT IN BED. PT DENIES ANY NEEDS AT THIS TIME. CALL LIGHT IN REACH, NAD NOTED,W ILL CONTINUE TO MONITOR.
[2018-10-18 14:09] LABS: HEP B CORE AB TOTAL Negative (Negative); HEPATITIS C ANTIBODY 0.3 S/CO RAT (0.0-0.9)
--- NOTE | 2018-10-18 16:48 | NUR ---
BLOOD SUGAR OF 175, NO COVERAGE NEEDED PER S/S. REPOSITIONED PT IN THE BED, PT DENIES ANY NEEDS A THIS TIME. CALL LIGHT IN REACH, NAD NOTED.
--- NOTE | 2018-10-18 19:00 | NUR ---
EVENING ROUNDS COMPLETE, PT SITTING UP IN BED, NO SIGNS OF DISTRESS. FAMILY AT BEDSIDE. PT DENIES ANY PAIN AT THIS TIME. PT IS A&O X4. CL IN REACH, BED IN LOWEST POSITION. CONT WITH POC.
[2018-10-19 05:05] LABS: BASOPHILS 0.2 % (0-2); EOSINOPHILS 1.8 % (0-7); HEMATOCRIT 26.1 % (42.0-54.0); HEMOGLOBIN 8.9 g/dL (13.5-17.5); IMMATURE GRANULOCYTES 0.3 % (0-5); LYMPHOCYTES 14.4 % (15-50); MCH 34.2 pg (26.0-34.0); MCHC 34.1 g/dL (31.0-37.0); MCV 100.4 fL (80.0-100.0); MEAN PLATELET VOLUME 9.9 fL (7.4-10.4); MONOCYTES 9.8 % (2-11); NEUTROPHILS 73.5 % (40-80); PLATELET COUNT 193 10x3/uL (130-400); RDW 13.6 % (11.5-14.5); WBC 10.5 10x3/uL (4.8-10.8)
[2018-10-19 05:37] LABS: ANION GAP 15.7 mmol/L (8-16); CARBON DIOXIDE 28.3 mmol/L (21.0-32.0); PHOSPHOROUS 8.6 mg/dL (2.5-4.9); THYROID STIMULATING HORMONE 0.3 uIU/mL (0.36-3.74)
[2018-10-19 05:49] LABS: CREATININE - SERUM 8.9 mg/dL (0.6-1.3)
[2018-10-19 08:12] LABS: HEPATITIS C ANTIBODY 0.2 S/CO RAT (0.0-0.9)
--- NOTE | 2018-10-19 11:04 | NUR ---
PT TO DIALYSIS AT THIS TIME, VIA WHEELCHAIR.
--- NOTE | 2018-10-19 12:05 | NUR ---
UNIT OF BLOOD TAKEN TO DIALYSIS.
--- NOTE | 2018-10-19 14:31 | CN ---
PATIENT NAME:FABIEN DOWNEY MEDICAL RECORD: [id number] : 36 LOCATION:D. D.2103 ADMIT DATE: 10/14/18 ACCOUNT: [id number] CONSULTING PHYSICIAN: CANDIS BURROWS MD REFERRING PHYSICIAN: ANIYA KENDRICK MD DATE OF CONSULTATION: 10/14/2018 DIAGNOSES: 1. Non-Q-wave myocardial infarction. 2. Coronary artery disease. 3. End-stage renal failure, dialysis. 4. Hypertension. HISTORY OF PRESENT ILLNESS: This is a gentleman with no previous cardiac history, who began having chest discomfort that was worsened today during dialysis. He has had episodes of chest discomfort what he calls a fullness in his chest. He attributed this to gas. This has been happening more and more over the past week. Today, it became quite severe in dialysis. Troponin is positive for non-Q-wave myocardial infarction. EKG suggests resting ischemia in the lateral distribution. PHYSICAL EXAMINATION: CONSTITUTIONAL/GENERAL APPEARANCE: Well nourished, well developed, appears stated age. EYES: Lids and conjunctivae noninjected. No discharge. No pallor. ENT: Lips within normal limit. No cyanosis. No pallor. NECK: Carotid arteries, bilateral normal upstroke. No bruits. No thrills. No jugular venous pressure or distention. CERVICAL LYMPH NODES: Nontender. Nonenlarged. THYROID: Not enlarged. No nodules. CARDIOVASCULAR: Precordial exam, nondisplaced. No heaves or pericardial thrills. Rate and rhythm, regular. Heart sounds, normal S1, normal S2. No S3, no gallop, no rub. Systolic murmur, not heard. Diastolic murmur, not heard. RESPIRATORY: Respiratory effort, unlabored. Normal curvature. No thoracic deformity. No chest wall tenderness. Percussion, resonant. Auscultation, clear. No wheezes, no rales, no rhonchi. ABDOMEN: Soft, nondistended, nontender. No abdominal pain, no vomiting and normal appetite. MUSCULOSKELETAL: No joint tenderness, normal gait, normal tone. SKIN: Warm and dry. OVERALL IMPRESSION: Non-Q-wave myocardial infarction. At this time, no doubt he has hemodynamically significant coronary artery disease. We will proceed with coronary angiography. Further care depends upon findings of the angiography. TRANSINT:[id number] Voice Confirmation ID: [id number] DOCUMENT ID: [id number] CONSULT REPORT [id number] FABIEN DOWNEY, CANDIS JONES at 1431 CC: [id number] DICTATION DATE: 10/14/18 1308 NETEZZA DEVELOPER: 10/14/18 1322 ADM IN [place] [id number] [place] [address]
--- NOTE | 2018-10-19 14:31 | OP ---
PATIENT NAME: FABIEN DOWNEY MEDICAL RECORD: [id number] :[birth year] LOCATION:D.M2 D.2103 ADMISSION DATE:10/14/18 SURGEON: CANDIS BURROWS MD DATE OF OPERATION: 10/14/2018 PROCEDURES: 1. Left heart catheterization. 2. Selective coronary angiography. 3. Percutaneous transluminal coronary angioplasty stent right coronary artery. INDICATION: Non-Q-wave myocardial infarction. DESCRIPTION OF PROCEDURE: After informed consent was obtained and after a detailed description of the risks, benefits as well as alternative therapies, the patient elected to proceed with angiogram and angioplasty. The right femoral area was prepped and draped in normal sterile fashion. Right femoral artery was cannulated via modified Seldinger technique with placement of 6-[place]izen [place] sheath. All catheters exchanged through this sheath. FINDINGS: Left ventriculogram was not performed secondary to inability to cross the aortic valve. SELECTIVE CORONARY ANGIOGRAPHY: 1. Left main is with no significant angiographic disease. 2. Left anterior descending appears to have 80+ percent stenosis at the ostium followed by an 80% stenosis in mid vessel. 3. Left circumflex, ramus intermedius has 80% and 90% stenosis proximally. There is a questionable stenosis in the mid vessel. The circumflex, better delineated by IFR. 4. Right coronary artery has a 90% stenosis at the ostium with pressure damping, 95+ percent stenosis in the mid vessel followed by 80% to 90% stenosis in the mid distal vessel. PTCA STENT OF THE RCA: The stent used from proximal to distal are 4.0 x 12, 3.5 x 12, 3.0 x 18 all Ladarius stents. Result was 0% residual stenosis. OVERALL IMPRESSION: Successful percutaneous transluminal coronary angioplasty stent of the right coronary artery going from 95% initial stenosis to 0% residual. PLAN: For PTCA stent of the LAD and circumflex in the future. TRANSINT:[id number] Voice Confirmation ID: [id number] DOCUMENT ID: [id number] CANDIS BURROWS MD at 1431 CC: [id number] DICTATION DATE: 10/14/18 1429 CEREAL CHEMIST: 10/14/18 1449 [place] [address]
--- NOTE | 2018-10-19 14:32 | EC ---
PATIENT:FABIEN DOWNEY DATE OF SERVICE: 10/14/18 SEX: M MEDICAL RECORD: [id number] DATE OF : [birth year] LOCATION:D.M2 D.210 AGE OF PATIENT: 77 ADMISSION DATE: 10/14/18 REFERRING PHYSICIAN: INTERPRETING PHYSICIAN: CANDIS CASEY MD ECHOCARDIOGRAM REPORT ECHO CHARGES 4 ECHO COMPLETE Date: 10/15/18 CLINICAL DIAGNOSIS: UT ECHOCARDIOGRAPHIC MEASUREMENTS (adult normal given) AC root (d.<3.7cm) 2.5 cm LV Septum d (<1.2 cm> 1.2 cm Valve Excursion 1.2 cm LV Septum (systole) 1.3 cm Left Atria (s.<4.0cm> 4.0 cm LVPW d(<1.2cm) 1.6 cm RV (d.<2.3cm) 3.3 cm LVPW (sytole) 1.8 cm LV diastole(<5.6CM) 5.7 cm MV E-F(>70mm/sec) cm LV systole 4.7 cm LVOT Diameter 1.8 cm MV exc.(>10mm) cm Est.ejection fraction (50-75%) % DOPPLER: LVIT cm/sec A 125 cm/sec E 102 cm/sec LA cm/sec RVSP 29.8 mmHg LVOT 89 cm/sec AOP1/2T m/s Asc. Ao 356 cm/sec RVOT 83 cm/sec RA cm/sec PA 102 cm/sec AV Gradient Peak 50.7 mmHg AV Mean 34.3 mmHg AV Area 0.6 cm MV Gradient Peak 9.0 mmHg MV Mean 5.3 mmHg MV Area cm COMMENTS: Copywriting Intern: Kobe [facility] Tube Bender Hand: 1 Dr. Casey TAPE# PACS Pericardial Effusion Y DATE OF SERVICE: 10/15/2018 PROCEDURE: Echocardiogram. FINDINGS: 1. Left ventricular chamber size is dilated. Left ventricular systolic function is moderately reduced at 30% to 35%. 2. Left atrium is within normal limits. Right atrium and right ventricular chamber sizes are mildly dilated. 3. Valvular structures: Aortic valve demonstrates [id number] calcific ECHOCARDIOGRAM REPORT [id number] FABIEN DOWNEY aortic stenosis, valve area calculates to 0.6 cm-squared and has gradient of 51-mm across the valve. The remaining valvular structures have normal structure and motion. 4. Doppler interrogation elsewise reveals mild aortic insufficiency, obuw-qd-ldudjdsg mitral regurgitation, mild tricuspid regurgitation, no other valvular insufficiency or stenosis. Pulmonary systolic pressure is estimated at 29 mmHg. 5. No evidence of pericardial effusion or left ventricular thrombus. TRANSINT:[id number] Voice Confirmation ID: [id number] DOCUMENT ID: [id number] CANDIS CASEY MD at 1432 CC: [id number] DICTATION DATE: 10/16/18 1146 SUPERINTENDENT COLLIERY: 10/16/18 1339 ADM IN [place] [id number] [place] [id number]
--- NOTE | 2018-10-19 17:11 | NUR ---
NOTIFIED SEVERIANO MCKEON APRN ABOUT PT'S BP BEING LOW AFTER DIALYSIS. FIRST READING WAS 73/39, THEN DID A MANUAL AND IT WAS 92/51, RECHECKED WITH ANOTHER MACHINE AND IT WAS 80/43. NEW ORDER TO GIVE 300CC BOLUS OF NS AND IT BP DOES NOT COME UP ABOVE 90 SYSTOLIC, TO CALL SEVERIANO BACK FOR MORE ORDERS.
--- NOTE | 2018-10-19 18:18 | NUR ---
CALLED SEVERIANO MCKEON BACK AND INFORMED HER THAT AFTER GIVEN 300CC BOLUS OF NS BP ONLY CAME UP TO 89/40. NEW ORDER FOR 10MG OF MIDODRINE ONE TIME DOSE.
[2018-10-19 18:20] VITALS: BP 98/40
--- NOTE | 2018-10-19 18:50 | NUR ---
EVENING ROUNDS COMPLETE, PT JU IN BED WITH AT BEDSIDE. NO SIGNS OF DISTRESS. PT IS AAOX4, DENIES ANY PAIN OR NEEDS AT THIS TIME. CL IN REACH, BED IN LOWEST POSITION. CONT WITH POC.
[2018-10-19 20:00] VITALS: BP 87/46
[2018-10-20] VITALS: BP 109/60
[2018-10-20 04:00] VITALS: BP 125/49
[2018-10-20 06:45] LABS: BASOPHILS 0.2 % (0-2); EOSINOPHILS 1.9 % (0-7); HEMATOCRIT 30.3 % (42.0-54.0); HEMOGLOBIN 10.3 g/dL (13.5-17.5); IMMATURE GRANULOCYTES 0.3 % (0-5); LYMPHOCYTES 18.6 % (15-50); MCV 97.1 fL (80.0-100.0); MEAN PLATELET VOLUME 10.3 fL (7.4-10.4); MONOCYTES 11.4 % (2-11); NEUTROPHILS 67.6 % (40-80); PLATELET COUNT 173 10x3/uL (130-400); RBC 3.12 10x6/uL (4.20-6.10); RDW 16.4 % (11.5-14.5)
[2018-10-20 06:48] LABS: ALBUMIN 2.8 g/dL (3.4-5.0); ANION GAP 15.7 mmol/L (8-16); BILIRUBIN - DIRECT 0.55 mg/dL (0.00-0.30); BILIRUBIN - INDIRECT 0.75 mg/dL (0.00-1.00); BILIRUBIN - TOTAL 1.3 mg/dL (0.2-1.3); CALCIUM 8.2 mg/dL (8.5-10.1); CARBON DIOXIDE 28.3 mmol/L (21.0-32.0); PHOSPHOROUS 7.2 mg/dL (2.5-4.9); PROTEIN - SERUM 6.9 g/dL (6.4-8.2); VANCOMYCIN - RANDOM 19.3 ug/mL (10.0-20.0)
[2018-10-20 07:09] LABS: INR 1.47 (0.85-1.17); PROTIME 17.2 SECONDS (11.6-15.0)
[2018-10-20 07:10] LABS: APTT 36.8 SECONDS (22.8-39.4)
--- NOTE | 2018-10-20 07:37 | NUR ---
ROUNDING DONE WITH PATIENT BEING ON HEART MONITOR. SR, HR 95. ON 2L PER HIGH FLOW. STATES TO HAVING CLEAR PRODUCTIVE COUGH. LEFT CVL SEEN WITH DRY INTACT DRESSING. NS INFUSING AT 10 CC/HR. RIGHT AVF WITH + BRUIT AND THRILL. AT BEDSIDE. ENFORCED USE OF CALL LIGHT FOR ALL NEEDS. 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
--- NOTE | 2018-10-20 08:57 | NUR ---
LAYING ON RIGHT SIDE WITH HOB AT 30 DEGREES. AT [facility]. BED ALARM IS ON AND IN USE.
[2018-10-20 09:39] VITALS: BP 92/49
--- NOTE | 2018-10-20 10:39 | NUR ---
IS INSISTANT THAT I CATH PATIENT. I TOLD HER THAT I WOULD BLADDER SCAN HIM FIRST AND GO FROM THERE. ASSISTED PATIENT TO RESTROOM FOR BOWEL MOVEMENT FIRST, THEN WILL BLADDER SCAN.
--- NOTE | 2018-10-20 10:49 | NUR ---
PAST BROWN SOFT FORMED BM, BLADDER SCAN DONE WITH RESIDUAL OF 158 ML. PATIENT STATES THAT HE VOIDED SOME IN TOLIET.
--- NOTE | 2018-10-20 10:50 | NUR ---
Nutrition Follow-up: reports pt with improved appetite today. Typically drinks 2 Nepro/day. Diet: Renal ADA PO intake: 53% avg x 9 meals Wt: 190# Last BM: reports multiple "thick, sticky" BMs Labs noted: Glu 115, K+ 4.0, PO4 7.2, Ca 8.2, Alb 2.8 Meds noted: Humulin Continue current diet as tolerated. Offer Nepro with meals. May consider binders 2/[address] following.
[2018-10-20 13:14] VITALS: BP 84/43
--- NOTE | 2018-10-20 13:15 | NUR ---
RESTING WITH EYES CLOSED, RESP ARE EVEN. ASLEEP IN CHAIR. BED ALARM IS ON AND IN USE.
--- NOTE | 2018-10-20 13:43 | NUR ---
DISCHARGED HOME WITH OWN PORTABLE OXYGEN AND HIS EXTRA TANK.
[2018-10-20 14:09] LABS: ANCA - ANTIMYELOPEROXIDASE <9.0 U/mL (0.0-9.0); ANCA - ANTIPROTEINASE 3 <3.5 U/mL (0.0-3.5); ANCA - ATYPICAL <1:20 titer (Neg:<1:20); ANCA - CYTOPLASMIC <1:20 titer (Neg:<1:20); ANCA - PERINUCLEAR <1:20 titer (Neg:<1:20)
--- NOTE | 2018-10-20 15:50 | NUR ---
1538-CLEANED PATIENT FROM INCONT. OF STOOL. PATIENT WAS ON RIGHT SIDE. WHEN I ROLLED HIM TO LEFT SIDE HIS EYES ROLLED TO BACK OF HEAD AND HE PASSED OUT. RAPID RESPONSE CALLED. PATIENT TO COME TO IN ONE MIN. DENIES ANY NEEDS. BILATERAL [facility] TUTOR ARE EQUAL ALONG WITH SYMMETRIC SMILE ON FACE. NO NEW ORDERS FROM RR TEAM. 1548-CIERA ADKINS APN CALLED AND MADE AWARE OF SITUATION. I HAD TOLD RR TEAM THAT I WOULD CALL THE DOCTOR. NO NEW ORDERS FROM CIERA. STATES THAT THIS HAS HAPPENED IN ICE AND DIALYSIS WHEN MOVING HIM FAST.
[2018-10-20 17:09] VITALS: BP 96/53
--- NOTE | 2018-10-20 19:20 | NUR ---
PT CARE ASSUMED. BEDSIDE SHIFT REPORT COMPLETE. PT UP IN BED RR EVEN AND UNLABORED. NO S/S OF DISTRESS NOTED. AT BEDSIDE. PT DENIES NEEDS AT THIS TIME. CALL LIGHT IN REACH. WILL CTM.
[2018-10-20 20:00] VITALS: BP 92/41
[2018-10-21] VITALS: BP 93/81
[2018-10-21 04:00] VITALS: BP 89/44
[2018-10-21 06:06] LABS: VANCOMYCIN - RANDOM 28.1 ug/mL (10.0-20.0)
[2018-10-21 06:11] LABS: PHOSPHOROUS 9.2 mg/dL (2.5-4.9)
--- NOTE | 2018-10-21 07:20 | NUR ---
ROUNDING DONE WITH BOTH PATIENT AND ASLEEP, EYES CLOSED. RESP ARE EVEN. PATIENT IS LAYING ON RIGHT SIDE WITH HOB AT 30 DEGREES. ON 2 1/2 L PER HIGH FLOW. LEFT CVL SEEN WITH NS INFUSING AT 10 CC/HR. RES. RIGHT ARM WITH AVF, + BRUIT AND THRILL. BED ALARM IS ON. ON HEART MONITOR.
--- NOTE | 2018-10-21 11:05 | NUR ---
PATIENT'S TO STATES THAT HE IS NAUSEATED SOME. WHEN ASKED IF HE WANTS SOME MEDICATION FOR THIS, PATIENT REFUSES.
--- NOTE | 2018-10-21 12:35 | NUR ---
REPORTS THAT PATIENT "JUST FEEL GOOD, SAYS HE IS SHORT OF BREATH AND SICK TO HIS STOMACH". VSS. WHEN ASKED IF HE WANTS NAUSEA MEDICATION HE AGAIN REFUSED. JOIE BELL IN ROOM TO HEAR THIS.
--- NOTE | 2018-10-21 13:33 | NUR ---
PATIENT IS RESTING ON LEFT SIDE WITH HOB AT 30 DEGREES. IS RESTING IN CHAIR. BED ALARM IS ON AND IN USE.
[2018-10-21 13:39] VITALS: BP 88/47
--- NOTE | 2018-10-21 14:38 | NUR ---
JOIE BELL GIVING PATIENT BATH AND DOING LINEN CHANGE.
[2018-10-21 17:56] VITALS: BP 88/48
--- NOTE | 2018-10-21 19:20 | NUR ---
PT CARE ASSUMED. BEDSIDE SHIFT REPORT COMPLETE. RR EVEN WITH DYSPNEA ON EXERTION. NO S/S OF DISTRESS NOTED AT THIS TIME. AT BEDSIDE AND ENCOURAGED TO USE CALL LIGHT FOR ASSISTANCE. NO FURTHER NEEDS EXPRESSED AT THIS TIME. CALL LIGHT IN REACH. WILL CTM.
[2018-10-21 20:00] VITALS: BP 88/51
[2018-10-22] VITALS: BP 99/60
[2018-10-22 04:00] VITALS: BP 102/55
[2018-10-22 06:37] LABS: BASOPHILS 0.5 % (0-2); EOSINOPHILS 4.8 % (0-7); HEMOGLOBIN 10.7 g/dL (13.5-17.5); IMMATURE GRANULOCYTES 0.4 % (0-5); LYMPHOCYTES 20.2 % (15-50); MCH 33.1 pg (26.0-34.0); MCHC 33.4 g/dL (31.0-37.0); MEAN PLATELET VOLUME 10.3 fL (7.4-10.4); NEUTROPHILS 65.1 % (40-80); PLATELET COUNT 174 10x3/uL (130-400); RBC 3.23 10x6/uL (4.20-6.10); RDW 17.1 % (11.5-14.5); WBC 9.3 10x3/uL (4.8-10.8)
[2018-10-22 06:52] LABS: ANION GAP 21.8 mmol/L (8-16); CALCIUM 8.1 mg/dL (8.5-10.1); CARBON DIOXIDE 23.3 mmol/L (21.0-32.0); POTASSIUM - SERUM 4.1 mmol/L (3.5-5.1); VANCOMYCIN - RANDOM 24.5 ug/mL (10.0-20.0)
[2018-10-22 06:53] LABS: CREATININE - SERUM 11.3 mg/dL (0.6-1.3); PHOSPHOROUS 9.9 mg/dL (2.5-4.9)
[2018-10-22 06:56] LABS: MCV 99.1 fL (80.0-100.0)
--- NOTE | 2018-10-22 08:41 | NUR ---
PATIENT IS SITTING UP IN BED EATTING BREAKFAST. HE DENIES ANY NEEDS AT THIS TIME. HIS IS AT BEDSIDE.
[2018-10-22 13:54] VITALS: BP 100/70
--- NOTE | 2018-10-22 15:04 | NUR ---
PATIENT IS GETTING DIALYSIS NOW.
--- NOTE | 2018-10-22 15:59 | NUR ---
PATIENT IS STILL IN DIALYSIS.
--- NOTE | 2018-10-22 17:53 | NUR ---
VANESSA BLUM CALLED AND SAID THAT THE PATIENT HAD REPORTED BURNING DURING URINATION. WE HAVE AN ORDER TO COLLECT URINE. SHE SAID THAT WE NEED TO DO AN IN AND OUT CATH IF THE PATIENT IS NOT ABLE TO DO A CLEAN CATCH.
--- NOTE | 2018-10-22 19:15 | NUR ---
RECEIVED CARE FROM DAY NURSE. LYING ON SIDE IN BED. AT SIDE. NO NEEDS VOICED AT THIS TIME. CALL LIGHT AT SIDE. IV INFUSING PER ORDER TO PATENT LEFT TLSC. DIALYSIS SITE DRESSED CDI.
[2018-10-22 20:00] VITALS: BP 89/49
[2018-10-23] VITALS: BP 93/53
--- NOTE | 2018-10-23 01:10 | NUR ---
I have reviewed this patient and I concur with the Shift Assessment completed by the Licensed Practical Nurse today this shift.
[2018-10-23 03:05] LABS: APPEARANCE CLOUDY (CLEAR); COLOR STRAW (YELLOW)
[2018-10-23 03:06] LABS: BACTERIA MODERATE /hpf (NONE SEEN); BILIRUBIN NEGATIVE (NEGATIVE); EPITHELIAL CELLS RARE /hpf (0-5); GLUCOSE NEGATIVE (NEGATIVE); KETONE SMALL mg/dL (NEGATIVE); NITRITE NEGATIVE (NEGATIVE); PROTEIN 2+ mg/dL (NEGATIVE); SPECIFIC GRAVITY 1.015 (1.005-1.020); UROBILINOGEN NORMAL (NORMAL); WHITE CELLS - URINE >50 /hpf (0-5)
[2018-10-23 04:00] VITALS: BP 97/52
[2018-10-23 04:33] LABS: BASOPHILS 0.7 % (0-2); EOSINOPHILS 4.6 % (0-7); HEMATOCRIT 31.6 % (42.0-54.0); HEMOGLOBIN 10.4 g/dL (13.5-17.5); IMMATURE GRANULOCYTES 0.4 % (0-5); MCHC 32.9 g/dL (31.0-37.0); MCV 100.3 fL (80.0-100.0); MEAN PLATELET VOLUME 10.6 fL (7.4-10.4); NEUTROPHILS 64.3 % (40-80); PLATELET COUNT 173 10x3/uL (130-400); RBC 3.15 10x6/uL (4.20-6.10); RDW 17.4 % (11.5-14.5); WBC 7.5 10x3/uL (4.8-10.8)
[2018-10-23 04:55] LABS: ALBUMIN 2.8 g/dL (3.4-5.0); ANION GAP 14.6 mmol/L (8-16); BILIRUBIN - DIRECT 0.4 mg/dL (0.00-0.30); BILIRUBIN - INDIRECT 0.88 mg/dL (0.00-1.00); BILIRUBIN - TOTAL 1.28 mg/dL (0.2-1.3); POTASSIUM - SERUM 3.6 mmol/L (3.5-5.1); PROTEIN - SERUM 7.1 g/dL (6.4-8.2); VANCOMYCIN - RANDOM 19.3 ug/mL (10.0-20.0)
[2018-10-23 05:00] LABS: CREATININE - SERUM 7.4 mg/dL (0.6-1.3); PHOSPHOROUS 6.3 mg/dL (2.5-4.9)
[2018-10-23 07:30] VITALS: BP 98/54
--- NOTE | 2018-10-23 07:38 | NUR ---
PATIENT RESTING QUIETLYWITH LEGS HANGING OFF BED. THIS IS A NORMAL POSITION FOR THIS PATIENT. UPDATED WHITE BOARD. O2 IS NOTED AT 2.5 L. LEFT CENTRAL LINE IS PATENT AND INFUSING, DRESSING IS CLEAN DRY AND INTACT. IS AT BEDSIDE. BED IS IN LOW POSITION AND CALL LIGHT IS IN REACH. NO COMPLAINTS OR NEEDS FROM AT THIS TIME.
[2018-10-23 11:30] VITALS: BP 88/50
--- NOTE | 2018-10-23 15:16 | NUR ---
rehab prescreen: this patient will make a good canaidate IRF. Patient has [facility] insurance so will need a proir auth before able to admit. the patient isnt fully stable yet so will continue to monitor while waiting to hear back from insurance company. thank you for this eval. kamila miguel lpn clinical liasion
[2018-10-23 15:30] VITALS: BP 85/49
[2018-10-23 20:00] VITALS: BP 99/49
--- NOTE | 2018-10-23 20:00 | NUR ---
RESTING IN BED EYES CLOSED, RESP UNLABORED NO APPARENT DISTRESS, AT BEDSIDESEE SHIFT ASSESSMENT, CALL LIGHT IN REACH
[2018-10-24] VITALS (17 sets, daily range): BP systolic 65–109; BP diastolic 44–61
--- NOTE | 2018-10-24 00:36 | NUR ---
CALLED TO ROOM BY , PT SITTING UP ON SIDE OF BED STATES I THINK IM DYING JUST FEEL SICK, BLOOD SUGAR CHECKED AT 176, BP 78/34 SITTING UP, STATES IT DROPS SOMETIMES WHEN HE SITS UP, INSTRUCTED TO LYE DOWN AND RECHECKED 102/48 PULSE 95 AND O2 SAt at 98%, PT NOW STATES I ATE SOME COOKIES AND I FEEL NAUSATED, ZOFRAN GIVEN ORDERED, WILL MONITOR
[2018-10-24 06:49] LABS: BASOPHILS 0.5 % (0-2); EOSINOPHILS 3.6 % (0-7); HEMATOCRIT 32.1 % (42.0-54.0); HEMOGLOBIN 10.4 g/dL (13.5-17.5); IMMATURE GRANULOCYTES 0.1 % (0-5); MCH 32.8 pg (26.0-34.0); MCHC 32.4 g/dL (31.0-37.0); MCV 101.3 fL (80.0-100.0); MEAN PLATELET VOLUME 10.4 fL (7.4-10.4); MONOCYTES 9.6 % (2-11); NEUTROPHILS 71.2 % (40-80); PLATELET COUNT 188 10x3/uL (130-400); RBC 3.17 10x6/uL (4.20-6.10); RDW 17.8 % (11.5-14.5); WBC 7.4 10x3/uL (4.8-10.8)
[2018-10-24 07:00] LABS: ANION GAP 17.9 mmol/L (8-16); CARBON DIOXIDE 28.1 mmol/L (21.0-32.0)
[2018-10-24 07:01] LABS: CREATININE - SERUM 9.6 mg/dL (0.6-1.3); PHOSPHOROUS 8.2 mg/dL (2.5-4.9)
--- NOTE | 2018-10-24 07:59 | NUR ---
DR KENDRICK ROUNDED AND ASKED IF CARDIOLOGY COULD TAKE ANOTHER LOOK AT THIS PATIENT . B/P HAS BEEN DIFFICULT TO CONTROL, WITH DIALYSIS. HEART BLOCKAGE WILL BE ASSESSED, AND LUNG HEALTH IS BEING MONITORED CLOSELY.
--- NOTE | 2018-10-24 08:41 | NUR ---
JUST PAGED DR BURROWS AGAIN, PATIENT HAS CHANGED FROM SINUS TACHY TO UNCON AFIB THIS MORNING AT 0715. PLACED A NPO SIGN ON HIS DOOR BECAUSE HE IS GOING TO DERRICK BUILDER THIS MORNING.
--- NOTE | 2018-10-24 09:09 | NUR ---
DR UMANA ROUNDED ON PATIENT. DR BURROWS IS GOING TO TAKE PT TO ACUTE CARE PHYSICIAN AT 10:30. REPORTED THAT PATIENT HEART RATE CHANGED TO UNCONTROLLED AFIB.
--- NOTE | 2018-10-24 11:20 | NUR ---
DR BURROWS BY TO SEE PATIENT. PLANS TO TAKE TO CATHLAB. WANTS PT TO BE IN ICU.
--- NOTE | 2018-10-24 11:53 | NUR ---
OT NOTE: PT SITTING UP ON EOB. STATES THAT PT IS SUPPOSED TO BE GOING TO SURGERY THIS AM. WILL CHECK WITH PT IN PM. TAMIA MOREJON, OTR/L
--- NOTE | 2018-10-24 11:58 | NUR ---
Nutrition Follow-up: Pt sleeping. Spoke with pt's . She reports fair appetite/PO intake with nausea. Drinking 2 Nepro/day. Noted plans for heart cath today. Diet: Renal ADA PO intake: 67% avg x 6 meals Wt: 201# Last BM: 10/23 Labs noted: Glu 165, K+ 4.0, PO4 8.2 Meds reviewed Continue current diet as tolerated. RD following.
--- NOTE | 2018-10-24 12:01 | NUR ---
CODE CALLED ON THIS PATIENT AT 11:05 BECAUSE HIS O2 SATURATION WAS DROPPING WITH RT IN THE ROOM. PATIENT HAD COMPLAINED OF NAUSEA AND DISCOMFORT AND STATES" ITS ALL [place] FROM HERE, I AM NOT GOING TO MAKE IT." HAS BEEN VERY CONSERNED AT BEDSIDE. PATIENT WILL DESTAT WHEN HE CHANGES POSITION QUICKLY. B/P HAS BEEN RUNNING LOW, 80'S OVER 40'S. PATIENT IS GOING TO LABOR UNION BUSINESS REPRESENTATIVE THIS MORNING BENNY HAS BEEN NPO. LABOR UNION BUSINESS REPRESENTATIVE JUST CALLED TO PREOP HIM, AND HE HAS BEEN MOVED TO ICU TO BE PEROPED AND WILL BE GOING BACK TO ICU AFTER HIS PROCEDURE.
--- NOTE | 2018-10-24 12:10 | NUR ---
off unit to airport maintenance laborer
--- NOTE | 2018-10-24 13:21 | NUR ---
pt returned to unit from cathlab. placed on bedside monitoring. respiratory staff notified that dr mendoza wanted pt placed on bipap. at bedside setting it up.
--- NOTE | 2018-10-24 13:47 | NUR ---
Rehab Note- PreAuth has been started with [facility], awaiting for notification for clinicals to be faxed. Will continue to follow at this time. Thank you for this referral! Roula Gates RN Clinical Liaison, [facility] Rehab
--- NOTE | 2018-10-24 15:42 | NUR ---
PATIENT RESTING. AT TIMES WILL TAKE BIPAP OFF. REORIENT PATIENT NEEDED. CALL LIGHT WITHIN REACH. BED LOW AND LOCKED. RR 25. WILL CONTINUE TO MONITOR.
--- NOTE | 2018-10-24 16:29 | NUR ---
PATIENT REPORTS NAUSEA. ZOFRAN GIVEN.
--- NOTE | 2018-10-24 17:55 | NUR ---
paged dr foley about patient's blood pressure 74/46 MAP 57
--- NOTE | 2018-10-24 21:39 | NUR ---
DR.TAUTH MORRISON R/T MABLE B/P
--- NOTE | 2018-10-24 21:43 | NUR ---
CALLED ICU BACK, UPDATE GIVEN, INFORMED IF LOW B/P AND ORDERS FOR BETAPACE, STATED TO GIVE BETAPACE ORDERED, NO NEW ORDERS RECEIVED, WILL CONTINUE TO MONITOR
--- NOTE | 2018-10-24 21:45 | NUR ---
BIPAP REMOVED PLACED ON HIGH FLOW NC @7L/MIN TO GIVE MEDS, PT TOLLERATED WELL, TCDB COMPLETED, MEDS GIVEN PER APR/ORDERS, PT ANSWERES QUESTIONS, B/P LOW 89/57(65) HR84 RR18 SPO2 96%, REPOSITIONED PT UP IN BED AND ELEVATED HOB, BILAT GROIN INCISION SITES C/D/I, SOFT WITH NO HEMATOMA NOTED, WILL CONTINUE TO MONITOR
[2018-10-25] VITALS (24 sets, daily range): BP systolic 80–96; BP diastolic 44–78
--- NOTE | 2018-10-25 03:20 | NUR ---
PT STATED NEED TO HAVE BM, PLACED ON BED BERG D/T HYPOTENTION AND FALL RISK, PT HAD SEMI FORMED LIGHT BROWN BM, CLEANED AYANNA AREA AND PATIAL LINEN CHANGE, WITH x2 RN AT BEDSIDE PT HOB LAYED BACK TO REPOSITION UP IN BED, PT BECAME UNRESPONSIVE WHEN HOB LAYED BACK, UNABLE TO ARROUSE WITH VERBAL OR PHYSICAL STIMULI, EYES OPEN WITH BLANK GLARE UP NOTED, INCREASED MUSCLE TETANY NOTED, NO V/S OR RHYTHM CHANGES NOTED, PT BECAME RESPONSIVE ALERT AND ORIENTED WHEN HOB ELEVATED, V/S B/P CONTINUES TO BE HYPOTENSIVE WITH SBP 80'S, OTHER VSS, WILL CONTINUE TO MONITOR
--- NOTE | 2018-10-25 04:00 | NUR ---
AT BEDSIDE, UPDATE GIVEN, NO QUESTIONS OR NEEDS AT THIS TIME, SIP OF ICE WATER GIVEN PER REQUEST
[2018-10-25 06:24] LABS: ANION GAP 24.4 mmol/L (8-16); CALCIUM 8.1 mg/dL (8.5-10.1); CARBON DIOXIDE 21.6 mmol/L (21.0-32.0); THYROID STIMULATING HORMONE 0.57 uIU/mL (0.36-3.74)
[2018-10-25 07:05] LABS: BASOPHILS 0.2 % (0-2); EOSINOPHILS 0.2 % (0-7); HEMATOCRIT 33.9 % (42.0-54.0); IMMATURE GRANULOCYTES 0.5 % (0-5); LYMPHOCYTES 16.4 % (15-50); MCHC 32.4 g/dL (31.0-37.0); MCV 101.8 fL (80.0-100.0); MEAN PLATELET VOLUME 11.4 fL (7.4-10.4); MONOCYTES 9.5 % (2-11); NEUTROPHILS 73.2 % (40-80); PLATELET COUNT 190 10x3/uL (130-400); RBC 3.33 10x6/uL (4.20-6.10); RDW 17.9 % (11.5-14.5)
[2018-10-25 07:09] LABS: WBC 9.4 10x3/uL (4.8-10.8)
--- NOTE | 2018-10-25 07:15 | NUR ---
DR. KENDRICK AT BEDSIDE, SPOKE AT LENGTH WITH PT ABOUT POC, NEW ORDERS RECIEVED,
--- NOTE | 2018-10-25 09:15 | NUR ---
FAMILY AT BEDSIDE, UPDATE GIVEN, SPOKE WITH SONS ABOUT PT POC, ALL QUESTIONS ANSWERED,
--- NOTE | 2018-10-25 11:15 | NUR ---
PT STILL ON HD, TOLERATING WELL, WILL CON'T TO MONITOR
--- NOTE | 2018-10-25 13:59 | NUR ---
Rehab Note- Received voicemail from Haylee with [facility] that the patient has been denied an acute inpatient rehab stay, that his level of care can be met at a SNF level. A peer to peer can be set up by 10/26/18 @ 6022M by contacting Haylee at [phone] with the physican's name & contact #. Spoke with [place] Back. Thank you for this referral! Benito Gates RN CLinical Liaison, [facility] Rehab
--- NOTE | 2018-10-25 15:14 | NUR ---
PATIENT IS A LITTLE DISORIENTED TO TIME AND SITUATION. HE AROUSES TO SPEECH. ABLE TO FOLLOW COMMANDS. REASSESMENT DONE. FAN PROVIDED. VSS. HOB 40. WILL CONTINUE TO MONITOR.
--- NOTE | 2018-10-25 17:08 | NUR ---
FAMILY AT BEDSIDE. ICE CHIPS PROVIDED. FAN ON. LEADS REPLACED. PROVIDED NO BLANKETS. I AND O DONE. VSS. REORIENTED. DENIES NEEDS AND PAIN AT THIS TIME. EXPIRATORY WHEEZE BILATERAL. OFF AND ON SLEEPING. EASILY AROUSED. WILL WILL CONTINUE TO MONITOR
--- NOTE | 2018-10-25 19:00 | NUR ---
BEDSIDE REPORT AND SHIFT ASSESSMENT COMPLETE. L SUBCLAVIAN CVL WNL, SEE IV FLOW SHEET. 02 SAT 100% ON 40% BIPAP. CALL LIGHT IN REACH, WILL CONTINUE TO MONITOR.
--- NOTE | 2018-10-25 21:00 | NUR ---
PT ATTEMPTING TO TAKE OFF BIPAP, PLACED ON NC. FAMILY AT BEDSIDE, UPDATE GIVEN. MEDS GIVEN PER MAR AND TOLERATED BY PT. CALL LIGHT IN REACH, WILL CONTINUE TO MONITOR.
--- NOTE | 2018-10-25 23:00 | NUR ---
RT AT BEDSIDE, PLACED PT ON BIPAP 40%. REASSESSMENT COMPLETE. VSS, NO SIGNS OF ACUTE DISTRESS NOTED. WILL CONTINUE TO MONITOR.
[2018-10-26] VITALS (35 sets, daily range): BP systolic 80–112; BP diastolic 41–66
--- NOTE | 2018-10-26 01:00 | NUR ---
PT ATTEMTING TO TAKE BIPAP OFF, REORIENTED. WILL MONITOR.
--- NOTE | 2018-10-26 03:00 | NUR ---
REASSESSMENT COMPLETE. VSS, NO SIGNS OF ACUTE DISTRESS NOTED. CALL LIGHT IN REACH, WILL MONITOR.
--- NOTE | 2018-10-26 04:20 | NUR ---
UNABLE TO DRAW LABS FROM GALLO MADERA IN LAB NOTIFIED.
[2018-10-26 05:21] LABS: ANION GAP 19.3 mmol/L (8-16); CALCIUM 8.5 mg/dL (8.5-10.1); CREATININE - SERUM 9.2 mg/dL (0.6-1.3); POTASSIUM - SERUM 4.8 mmol/L (3.5-5.1)
[2018-10-26 05:22] LABS: CARBON DIOXIDE 28.5 mmol/L (21.0-32.0)
[2018-10-26 05:23] LABS: BASOPHILS 0.6 % (0-2); HEMATOCRIT 35.3 % (42.0-54.0); HEMOGLOBIN 11.7 g/dL (13.5-17.5); IMMATURE GRANULOCYTES 0.3 % (0-5); LYMPHOCYTES 14.7 % (15-50); MCH 33.6 pg (26.0-34.0); MCHC 33.1 g/dL (31.0-37.0); MCV 101.4 fL (80.0-100.0); MEAN PLATELET VOLUME 11.6 fL (7.4-10.4); NEUTROPHILS 75.4 % (40-80); PLATELET COUNT 178 10x3/uL (130-400); RBC 3.48 10x6/uL (4.20-6.10); RDW 17.8 % (11.5-14.5); WBC 8.9 10x3/uL (4.8-10.8)
--- NOTE | 2018-10-26 06:25 | NUR ---
MEDS GIVEN PER MAR, PT VOMITED AFTERWARDS. NO EVIDENCE OF PILLS THAT WERE JUST GIVEN. WILL CONTINUE TO MONITOR.
--- NOTE | 2018-10-26 07:00 | NUR ---
DR KENDRICK AT BEDSIDE, UPDATE GIVEN. NEW ORDERS FOR CVP. DR KENDRICK IS GOING TO BE IN CLINIC TODAY BUT WOULD LIKE DR LEÓN TO TEXT HIM WITH UPDATE AFTER CXR THIS AM.
--- NOTE | 2018-10-26 09:00 | NUR ---
DR LEÓN AT BEDSIDE. FLUTTER VALVE ORDERED. NO DISTRESS NOTED. SPOKE WITH ABOUT CODE STATUS. SHE WANTS TO INVOLVE SONS IN DECISION. STATED HER SON WILL BE HERE SHORTLY TO SPEAK WITH ME. WEANING OFF OXYGEN. STILL CONFUSED TO TIME AND SITUATION. EXPIRATORY WHEEZE. NO BM AT TIME. PULSES PALP BILAT. FEET PURPLE BUT PULSES PALP. COVERED THEM UP WITH WARM BLANKET. WILL CONTINUE TO MONITOR.
--- NOTE | 2018-10-26 09:18 | NUR ---
Nutrition follow-up: Pt now in ICU due to hypotension PO intake has been ~60% average of meals Pt was drinking 2 Nepros/day labs reviewed Wt: 207# +BM RDN following.
--- NOTE | 2018-10-26 11:20 | NUR ---
PATIENT RESTING. FAN PROVIDED AND ON. AFEBRILE. DENIES NEEDS AT THIS TIME. STATES HE HAS NO PAIN. PATIENT PULLED UP IN BED AND TURNED. CVP READING OF 19. VBLOOD PRESSURE STILL REMAINS IN UPPER 80'S. SHOULD BE HAVING DIALYSIS SOMETIME TODAY ERP DR KENDRICK. DR LEÓN AGREED. WILL CONTINUE TO MONITOR. REFER TO DR KENDRICK NOTE FOR PROGRESS NOTE.
--- NOTE | 2018-10-26 13:25 | NUR ---
family at bedside. suctioned. pulled up and turned. no pain. afebrile. fan on. hob 45. bed low and locked. lines capped and labeled. will continue to monitor
--- NOTE | 2018-10-26 14:35 | NUR ---
called report to quoc moreno
--- NOTE | 2018-10-26 15:15 | NUR ---
PT ARRIVED TO UNIT VIA WHEELCHAIR. ON 2L OF O2 VIA HIGH FLOW NC. CONNECTED TO CVICU TERRAZZO POLISHER. HR 79, BP 85/42. CVP 12. HAS LEFT SUBCLAVIAN CVL WITH DOBUTAMINE INFUSING AT 5MCG/KG/MIN. SAFETY MEASURES IN PLACE. BED LOW POSITION, CALL LIGHT IN REACH, SIDE RAILS UP X 2, YELLOW GOWN ON. WILL CONTINUE TO MONITOR.
--- NOTE | 2018-10-26 16:52 | NUR ---
DINNER TRAY DELIVERED AND SET UP. SPOUSE AND SON AT BEDSIDE. SPOUSE ASSISTING PT WITH MEAL. WILL CONTINUE TO MONITOR.
--- NOTE | 2018-10-26 17:45 | NUR ---
LEFT SUBCLAVIAN CVL DRESSING CHANGED PER PROTOCOL. STERILE TECHNIQUE USED. PT RESTING COMFORTABLY. SPOUSE AT BEDSIDE.
--- NOTE | 2018-10-26 18:10 | NUR ---
DIALYSIS NURSE AT BEDSIDE.
--- NOTE | 2018-10-26 19:19 | NUR ---
BEDSIDE SHIFT REPORTING DONE WITH PAN [place] AT THIS TIME. HD NURSE AT BEDSIDE. HD NURSE DENIES NEEDS AT THIS TIME. PT RESTING QUIETLY. BP 82/55 MAP 64, HR 79. SPO2 99%. NO S/S OF PAIN AT THIS TIME.
--- NOTE | 2018-10-26 20:22 | NUR ---
2014 LEVOPHED STARTED AT 5MCG/KG/MIN PER PHYSICIAN ORDER. DR. TERAN NOTIFIED OF BP OF 98/48 (65) AND WANTED LEVOPHED STARTED AT THIS TIME DUE TO DIALYSIS BEING DONE. AT 202 BP INCREASED TO 106/48 (66).
--- NOTE | 2018-10-26 21:30 | NUR ---
RT AT BEDSIDE SUCTIONING PT ORALLY. EDEN RN ASSISTING. EDEN STATES PT HAD DIFFICULTY SWALLOWING WATER/MEDICATION. PT AWAKE AND ALERT. PT INSTRUCTED TO COUGH, DEEP SUCTIONING PERFORMED BY RT, WHITE PILL FRAGMENTS SEEN IN SPUTUM SUCTIONED. ORAL SUCTIONING COMPLETE BY RT, BIPAP NOW PLACED ON PT @ 40%. SPO2 97, RESPIRATIONS 24. PT REPOSITIONED WITH HOB AT 40 DEGREES.
--- NOTE | 2018-10-26 22:10 | NUR ---
ARRIVED TO PT ROOM FOR DIALYSIS TX. PT SLEEPING AT BEDSIDE. NOTICED PT B/P WAS LOW PRIOR TO TX STARTING. MAP WAS MID 40'S TO MID 50'S. WAS TOLD BY Uri CONCEPCION RN THAT LEVO WAS HUNG TO START TITRATION FOR B/P TO REMAIN IN THE 90-110 SYSTOLIC RANGE FOR TX. SHIFT CHANGE AND NEW NURSE TO ROOM. I ASKED HER TO START LEVO PT B/P 89/47. YOUTH PROGRAM DIRECTOR WAS IGNORED. ASKED PRIMARY NURSE TO START LEVO THERE WAS AN ORDER AND MEDICATION WAS HANGING ON IV POLE. WAS TOLD THAT IT COULDN'T BE STARTED ORDERS WEREN'T CLEAR. AT THIS TIME YOUTH PROGRAM DIRECTOR CALLED DR COWART THINKING THAT HE WAS MANUFACTURING LEAD AND ASKED ABOUT LEVO ORDERS TO RUN WITH TX DIALYSIS ORDERS WERE WRITTEN TO TAKE 2-3L OFF. ONCE AGAIN ASKED PRIMARY NURSE TO START LEVO PT B/P NOW 73/52, AND HAVE DECREASED UF GOAL DOWN TO 1L. MAP IN THE 40'S. I INFORMED PRIMARY NURSE THAT THE LEVO WAS HANGING ON IV POLE AND Uri CONCEPCION RN SAID THAT ORDERS WERE WRITTEN, AND THAT I NEEDED IT STARTED. WAS TOLD NOT TO TALK TO THE PRIMARY NURSE. CALLED MY POLICE LIEUTENANT AND INFORMED HER OF THE SITUATION. APPARENTLY ONE OF THE NEPHROLOGY DOCTORS CALLED CVICU WITH AN ORDER TO START LEVO CHARGE NURSE SHOWED UP TO START AND PRIMARY NURSE REFUSED TO COME INTO THE ROOM. LEVO STARTED AT 5MCG AND BARELY RAISED B/P. ONLY ABLE TO PULL 1L OFF B/P REMAINED AROUND 80'S TO 90'S SYSTOLIC. TOWARD THE END OF TX. A MALE NURSE CAME IN TO GIVE SCHEDULED MEDICATION. LOVENOX WAS GIVEN SUBQ IN THE LEFT DELTOID. PO MEDS WERE GIVEN WITH WATER. PT WOULDN'T SUCK THROUGH A STRAW SO WATER WAS PORED INTO PTS MOUTH RESULTING IN PT ASPIRATING. NURSE DID ATTEMPT TO SUCTION PT WITH YANKERS. DIALYSIS NURSE STOPPED TX APPROX 12 MINUTES EARLY FOR RESPIRATORY TRY TO SUCTION PT. BLOOD RETURNED, NEEDLES REMOVED, SIGHT SECURED.
--- NOTE | 2018-10-26 23:00 | NUR ---
REASSESSMENT COMPLETE, SEE FLOWSHEET. PT REPOSITIONED IN BED WITH PROMINENCES BRIDGED, HOB AT 40 DEGREES. BIPAP REMOVED BRIEFLY FOR ORAL CARE AND PLACED BACK ON PT @ 40%, SPO2 99%. ROOM VISIBLE FROM NURSES STATION. CPOC.
[2018-10-27] VITALS (85 sets, daily range): BP systolic 75–128; BP diastolic 28–70
--- NOTE | 2018-10-27 01:00 | NUR ---
PT REPOSITIONED IN BED WITH PROMINENCES BRIDGED. HOB @ [address], SPO2 97%. PT WILL AROUSE TO VOICE AND FOLLOW SOME COMMANDS BUT BECOMES ANXIOUS AND TACHYPNEIC. UPON RESTING RESPIRATIONS TREND DOWN.
--- NOTE | 2018-10-27 03:00 | NUR ---
REASSESSMENT COMPLETE, SEE FLOWSHEET. PT REPOSITIONED WITH PROMINENCES BRIDGED. ATTEMPTED SMALL BREAK FROM BIPAP AT THIS TIME, TOLERATED A COUPLE OF MINUTES BEFORE BIPAP HAD TO BE PLACED BACK ON. SPO2 97 WITH BIPAP ON.
[2018-10-27 06:02] LABS: INR 1.64 (0.85-1.17); PROTIME 18.8 SECONDS (11.6-15.0)
[2018-10-27 06:14] LABS: ALBUMIN 2.9 g/dL (3.4-5.0); ANION GAP 16.2 mmol/L (8-16); BILIRUBIN - DIRECT 0.92 mg/dL (0.00-0.30); BILIRUBIN - INDIRECT 0.82 mg/dL (0.00-1.00); BILIRUBIN - TOTAL 1.74 mg/dL (0.2-1.3); CALCIUM 8.7 mg/dL (8.5-10.1); CARBON DIOXIDE 29.6 mmol/L (21.0-32.0); CREATININE - SERUM 8.3 mg/dL (0.6-1.3); DIGOXIN 0.71 ng/mL (0.90-2.00); PHOSPHOROUS 8.5 mg/dL (2.5-4.9); POTASSIUM - SERUM 4.8 mmol/L (3.5-5.1); PROTEIN - SERUM 6.9 g/dL (6.4-8.2)
[2018-10-27 06:22] LABS: BASOPHILS 0.1 % (0-2); EOSINOPHILS 0.1 % (0-7); HEMATOCRIT 38.2 % (42.0-54.0); HEMOGLOBIN 12.8 g/dL (13.5-17.5); IMMATURE GRANULOCYTES 0.2 % (0-5); LYMPHOCYTES 6.8 % (15-50); MCH 33.8 pg (26.0-34.0); MCHC 33.5 g/dL (31.0-37.0); MCV 100.8 fL (80.0-100.0); MEAN PLATELET VOLUME 11.6 fL (7.4-10.4); MONOCYTES 5.4 % (2-11); NEUTROPHILS 87.4 % (40-80); PLATELET COUNT 172 10x3/uL (130-400); RBC 3.79 10x6/uL (4.20-6.10); RDW 17.6 % (11.5-14.5)
[2018-10-27 06:25] LABS: WBC 13.3 10x3/uL (4.8-10.8)
--- NOTE | 2018-10-27 06:39 | NUR ---
AROLDO PROVIDED WITH PT UPDATE AT THIS TIME
--- NOTE | 2018-10-27 08:26 | NUR ---
TOOK OFF BIPAP AT THIS TIME AND PLASED ON 3L NC. SPOUSE AT BEDSIDE.
--- NOTE | 2018-10-27 09:15 | NUR ---
PT DESATED TO 87% ON 3L NC. BREATHING RATE 30S. PLACED BACK ON BIPAP AT 40%.
--- NOTE | 2018-10-27 09:22 | NUR ---
SPOKE WITH DR. KENDRICK TO VERIFY LEVOPHED ORDERS. LEVOPHED CAN BE STARTED IF MAP FALL BELOW 60.
--- NOTE | 2018-10-27 10:52 | NUR ---
PT TOOK OF BIPAP TO GIVE PLAVIX PO. GAVE PLAVIX WITH APPLE SAUCE. PT SWALLOWED OK BUT RESPIRATION RATE INCREASED TO 30S. RT AT BEDSIDE. PLACED BACK ON BIPAP AT 40%.
--- NOTE | 2018-10-27 13:15 | NUR ---
TOOK OFF BIPAP AT THIS TIME. PLACED ON 3L NC. WILL SEE IF HE CAN TOLERATE BEING OFF BIPAP.
--- NOTE | 2018-10-27 13:20 | NUR ---
PT DESAT TO 86% ON 3L. PLACED BACK ON BIPAP AT 40%. EXPLAINED TO THAT PT IS NOT TOLERATING BEING OFF BIPAP FOR VERY LONG. WILL CONTINUE TO MONITOR.
--- NOTE | 2018-10-27 15:04 | NUR ---
BIPAP REMOVED AT THIS TIME FOR 5MIN. ORAL CARE PROVIDED. SPOUSE AT BEDSIDE. PT DOES NOT TOLERATED BEING OFF BIPAP FOR VERY LONG. WILL CONTINUE TO MONITOR.
--- NOTE | 2018-10-27 17:00 | NUR ---
DIALYSIS NURSE AT BEDSIDE. INTIATED DIALYSIS AT THIS TIME.
--- NOTE | 2018-10-27 18:33 | NUR ---
ORDERED RECEIVED FROM DR. KENDRICK TO INCREASE LEVOPHED TO 20MCG/MIN. CURRENTLY ON 9MCG/MIN.
--- NOTE | 2018-10-27 19:00 | NUR ---
BEDSIDE REPORT AND SHIFT ASSESSMENT COMPLETE. MEDICAL ASSEMBLY AT BEDSIDE.
--- NOTE | 2018-10-27 19:50 | NUR ---
RE[employer]UITMENT INTER[employer] COMPLETING DIALYSIS. VSS, NO SIGNS OF ACUTE DISTRESS NOTED. O2 98 ON 40% BIPAP, RR 22. AT BEDSIDE, UPDATE GIVEN. WILL CONTINUE TO MONITOR.
--- NOTE | 2018-10-27 21:00 | NUR ---
MEDS GIVEN PER MAR, MIXED WITH APPLESAUCE. PT TOLERATED. TRIED PULLING BIPAP OFF, REORIENTED BY WHO IS STAYING AT BEDSIDE. WILL CONTINUE TO MONITOR.
--- NOTE | 2018-10-27 22:00 | NUR ---
VSS, NO SIGNS OF ACUTE DISTRESS NOTED. CVP 12. PT ATTEMPTING TO TAKE OFF BIPAP AND TELEMETRY WIRES, REORIENTED BY .
--- NOTE | 2018-10-27 23:00 | NUR ---
REASSESSMENT COMPLETE. O2 98 ON 40% BIPAP, RR 36, DIAPHORETIC. PT DENIES NEEDS AT THIS TIME. WILL CONTINUE TO MONITOR.
[2018-10-28] VITALS (102 sets, daily range): BP systolic 75–138; BP diastolic 36–81
--- NOTE | 2018-10-28 01:00 | NUR ---
PT PULLED CVL DRESSING OFF, NEW DRESSING APPLIED. VSS, NO SIGNS OF ACUTE DISTRESS NOTED. PT DENIES NEEDS, AT BEDSIDE. WILL CONTINUE TO MONITOR.
--- NOTE | 2018-10-28 03:00 | NUR ---
REASSESSMENT COMPLETE. VSS, NO SIGNS OF ACUTE DISTRESS NOTED. O2 100 ON 40% BIPAP. PT SLEEPING, EASY TO AROUSE. CALL LIGHT IN REACH, WILL CONTINUE TO MONITOR.
--- NOTE | 2018-10-28 05:00 | NUR ---
PT SLEEPING, AT BEDSIDE. VSS, NO SIGNS OF ACUTE DISTRESS NOTED. LABS DRAWN VIA CVL AND SENT TO LAB. CALL LIGHT IN REACH, WILL CONTINUE TO MONITOR.
[2018-10-28 05:11] LABS: BASOPHILS 0.1 % (0-2); EOSINOPHILS 0 % (0-7); HEMATOCRIT 36.8 % (42.0-54.0); HEMOGLOBIN 12.2 g/dL (13.5-17.5); IMMATURE GRANULOCYTES 0.8 % (0-5); MCH 33.4 pg (26.0-34.0); MCHC 33.2 g/dL (31.0-37.0); MCV 100.8 fL (80.0-100.0); MEAN PLATELET VOLUME 11.6 fL (7.4-10.4); MONOCYTES 6.3 % (2-11); NEUTROPHILS 86.8 % (40-80); RBC 3.65 10x6/uL (4.20-6.10); RDW 18.3 % (11.5-14.5); WBC 16.5 10x3/uL (4.8-10.8)
[2018-10-28 05:16] LABS: PLATELET COUNT 135 10x3/uL (130-400)
[2018-10-28 05:47] LABS: ALBUMIN 2.7 g/dL (3.4-5.0); ANION GAP 15.2 mmol/L (8-16); BILIRUBIN - DIRECT 1.45 mg/dL (0.00-0.30); BILIRUBIN - INDIRECT 0.9 mg/dL (0.00-1.00); BILIRUBIN - TOTAL 2.35 mg/dL (0.2-1.3); CALCIUM 8.7 mg/dL (8.5-10.1); CARBON DIOXIDE 28.5 mmol/L (21.0-32.0); CREATININE - SERUM 7.2 mg/dL (0.6-1.3); PHOSPHOROUS 7.5 mg/dL (2.5-4.9); POTASSIUM - SERUM 4.7 mmol/L (3.5-5.1); PROTEIN - SERUM 6.6 g/dL (6.4-8.2); VANCOMYCIN - RANDOM 21.2 ug/mL (10.0-20.0)
[2018-10-28 05:52] LABS: DIGOXIN 0.52 ng/mL (0.90-2.00)
--- NOTE | 2018-10-28 09:40 | NUR ---
0730- AT BEDSIDE-RESP RX IN PROGRESS-BIPAP ON AT THIS-- 0830-TOLERATED 25%OF MEAL ON O2 AT 6L 0945-FOUND BIPAP MASK OFF- STATED CAUSING SEVERE PAIN TO NOSE--PLACED PT ON 6LNP -SAT 96%-RR 31-STRESSED WITH PT BREAK TEMPORARY-RR 40 AND SAT 90% WILL RETURN TO BIPAP-FULL CODE STATUS-DIESEL TRAILER MECHANIC AT BEDSIDE-ORDERS RECIEVED AND NOTED
--- NOTE | 2018-10-28 10:16 | NUR ---
Nutrition Follow-up: Pt on bipap. at bedside. She reports slight improvement in PO intake this AM (~25%). Noted 0% yesterday. C/o sore throat since aspiration on 10/26. ST eval yesterday; they rec mechanical soft food with ground meat, thin liquids, and 1:1 feeding & swallowing precautions. Diet: Renal ADA, Mech Soft Ground Meat 1:1 feeding swallowing safety precautions Wt: 200# Last BM: 10/25 Labs noted: Glu 181, K+ 4.7, PO4 7.5 Meds reviewed; noted Renagel deactivated Continue current diet as tolerated with consistencies per ST. +Nepro with meals. RD following.
--- NOTE | 2018-10-28 19:00 | NUR ---
BEDSIDE REPORT AND SHIFT ASSESSMENT COMPLETE. RT AT BEDSIDE ADMINISTERING BREATHING TX. AT BEDSIDE. L SUBCLAVIAN CVL WNL, DRESSING CDI. O2 95 ON 30% BIPAP. CALL LIGHT IN REACH, WILL CONTINUE TO MONITOR.
--- NOTE | 2018-10-28 21:00 | NUR ---
MEDS GIVEN PER MAR. SOME HELD TO DUE PT NOT TOLERATING. PT STILL CONFUSED, WILL REORIENT NEEDED. AT BEDSIDE TO ASSIST WITH REORIENTING AND KEEPING FROM PULLING AT LINES. VSS, NO SIGNS OF ACUTE DISTRESS NOTED. WILL CONTINUE TO MONITOR.
--- NOTE | 2018-10-28 21:30 | NUR ---
REPOSITIONING COMPLETE. PT ATTEMPTING TO TAKE WIRES OFF, REORIENTED BY . VSS, NO SIGNS OF ACUTE DISTRESS NOTED. CALL LIGHT IN REACH, WILL MONITOR.
--- NOTE | 2018-10-28 22:15 | NUR ---
PT UNCOOPERATIVE, RESTLESS, AND AGITATED. ATTEMPTING TO GET OOB. REORIENTING DONE BUT PT DOES NOT FOLLOW COMMANDS WELL. WILL CONTINUE TO MONITOR.
--- NOTE | 2018-10-28 23:00 | NUR ---
REASSESSMENT COMPLETE. VSS, NO SIGNS OF ACUTE DISTRESS NOTED. AT BEDSIDE HOLDING PT'S HAND TO KEEP HIM FROM PULLING AT LINES. DENIES NEEDS AT THIS TIME, WILL CONTINUE TO MONITOR.
[2018-10-29] VITALS (91 sets, daily range): BP systolic 67–141; BP diastolic 38–78
--- NOTE | 2018-10-29 01:00 | NUR ---
PT PULLING AT WIRES, ATTEMPTED TO REORIENT. ASKED HIM IF HE WANTED ME TO GIVE HIM A BATH, HE SAID NO. I EXPLAINED THAT MIGHT MAKE HIM FEEL BETTER AND SLEEP, HE SAID TO GO AWAY. I WILL ASK AGAIN LATER. AT BEDSIDE.
--- NOTE | 2018-10-29 01:45 | NUR ---
CHG BATH, LINEN CHANGE, AYANNA CARE COMPLETE. OINTMENT APPLIED TO BOTTOM. REPOSITIONING DONE. VSS, NO SIGNS OF ACUTE DISTRESS NOTED.
--- NOTE | 2018-10-29 03:00 | NUR ---
REASSESSMENT COMPLETE. VSS, NO SIGNS OF ACUTE DISTRESS NOTED. MEDS GIVEN PER MAR. WILL CONTINUE PLAN OF CARE.
[2018-10-29 04:52] LABS: BASOPHILS 0.1 % (0-2); EOSINOPHILS 0 % (0-7); HEMATOCRIT 36.8 % (42.0-54.0); HEMOGLOBIN 12.1 g/dL (13.5-17.5); IMMATURE GRANULOCYTES 0.5 % (0-5); LYMPHOCYTES 5.9 % (15-50); MCH 33.5 pg (26.0-34.0); MCHC 32.9 g/dL (31.0-37.0); MCV 101.9 fL (80.0-100.0); MEAN PLATELET VOLUME 11.5 fL (7.4-10.4); MONOCYTES 2.9 % (2-11); NEUTROPHILS 90.6 % (40-80); PLATELET COUNT 122 10x3/uL (130-400); RBC 3.61 10x6/uL (4.20-6.10); RDW 18.5 % (11.5-14.5); WBC 14.3 10x3/uL (4.8-10.8)
--- NOTE | 2018-10-29 05:00 | NUR ---
PT ATTEMPTING TO PULL OF BIPAP, REORIENTED. VSS, NO SIGNS OF ACUTE DISTRESS NOTED.
--- NOTE | 2018-10-29 05:15 | NUR ---
PT OBSERVED TRYING TO CLIMB OOB, REORIENTED AND REPOSITIONED IN THE BED.
[2018-10-29 05:19] LABS: ANION GAP 15.5 mmol/L (8-16); CALCIUM 8.7 mg/dL (8.5-10.1); CARBON DIOXIDE 29.1 mmol/L (21.0-32.0); CREATININE - SERUM 5.9 mg/dL (0.6-1.3); PHOSPHOROUS 7.1 mg/dL (2.5-4.9); POTASSIUM - SERUM 4.6 mmol/L (3.5-5.1)
--- NOTE | 2018-10-29 06:00 | NUR ---
MEDS GIVEN PER APR. O2 SAT 97 ON 4L HIGH FLOW NC. PT DID NOT TOLERATE APPLE SAUCE WELL, KEPT IT IN HIS MOUTH AND WOULD NOT FOLLOW UNLESS TOLD TO.
--- NOTE | 2018-10-29 06:35 | NUR ---
PLACED BIPAP 30% BACK ON PT, O2 SAT 98.
--- NOTE | 2018-10-29 15:24 | NUR ---
0730-RECIEVED ASLEEP AT BEDSIDE-SR MONITOR-BIPAP IN PLACE-LEVOPHED AT 12MCG/DOBUTREX AT 5MG/H 0830-PLACED ON ROUTER SETTER 5L-ABLE TO TAKE 50% OF TRAY, GIVEN BY 0930-RETURNED TO BIPAP-RENAL NURSE PRACTITIONER LAYTON SAINZ AT [facility]-DISCUSSED WITH DIALYSIS FOR ADDITIONAL VOLUME REMOVAL IF PT CAN TOLERATED-ALBUMIN 12.5 G OVER 2 HR STARTED PREMED -LEVOPHED TITRATED TO 15MCG-TO MAINTAIN SYS>110-SEE FLOWSHEET 1330-DR LEÓN AT BEDSIDE AND SPOKE WITH REGARDING CHEST XRAY RESULTS AND PT PROGRESS-STRESSED REMAINS SERIOUS 1430-DR COWART AT [facility]-CURRENT UPDATE-LEVOPHED TITRATED TO 20MCG AND DOBULTREX AT 7.5 ALBUMIN 12.5 AND 250NS FLUID CHALLENGE GIVEN-TO MAINTAIN SYS >110 FOR DIALYSIS-DR COWART STRESSED TO POOR OUTCOME AND IF POSSIBLE MAY ATTEMPT 1 HOUR OF DIALYSIS FOR ADDITIONAL VOLUME/PULMONARY- ANXIOUS TO HAVE DIALYSIS DONE -VERBALIZED WILL HELP HIM BREATH EASIER
--- NOTE | 2018-10-29 19:35 | NUR ---
REPORT REC'D AND CARE ASSUMED, REC'D PT RESTING IN BED ON BIPAP @ 30%, DIALYSIS IN PROGRESS, LEFT TLSCL DRSG CDI WITH LEVOPHED INFUSING @ 37.5CC OR 20MCG/MIN AND DOBUTAMINE @ 5MCG/KG/MIN OR 13.5CC/HR, RIGHT ARM FISTULA CONNECTED TO DIALYSIS, ABD SOFT BS X 4, MINIMAL EDEMA NOTED, PPP, SR UP X 2, BED IN LOW POSITION, AND SON IN ROOM.
--- NOTE | 2018-10-29 21:00 | NUR ---
EVENING MEDS GIVEN WITH WIFES ASSISTANCE, PT TOLERATED WELL, PT REPOSITIONED UP IN BED AND ONTO RIGHT SIDE SUPPORTED WITH PILLOWS, ARMS POSITIONED ON PILLOWS, BP STABLE, WILL MONITOR CLOSELY FOR CHANGES.
--- NOTE | 2018-10-29 22:30 | NUR ---
PT RESTLESS AND PULLING AT LINES, ATTEMPTED TO DISTRACT ONLY WORKS FOR A FEW MINUTES, AT BS, WEANING LEVOPHED TOLERATED, WILL MONITOR FOR CHANGES.
--- NOTE | 2018-10-29 23:15 | NUR ---
REASSESSMENT COMPLETED, PT PULLING AT PULSE OX, REPLACED AT THIS TIME, ATTEMPTING TO REORIENT AND DISTRACT PATIENT FROM PULLING AT LINES, VSS.
[2018-10-30] VITALS (87 sets, daily range): BP systolic 82–138; BP diastolic 10–95
--- NOTE | 2018-10-30 00:15 | NUR ---
PT PULLED BIPAP MASK APART AND BROKE A PIECE OFF, RT AT BS TO REPLACE MASK, PT CONSTANTLY FIDGETING WITH EQUIPMENT DESPITE REORIENTATION AND DISTRACTION, DIVERSION PROVIDED, CONTINUING TO WEAN LEVOPHED.
--- NOTE | 2018-10-30 02:30 | NUR ---
ROUTINE MEDS GIVEN ORDERED, PT REMAINS AWAKE, PULLING AT BIPAP MASK AND OTHER LINES, REPOSITIONED IN BED FOR COMFORT, ASLEEP IN RECLINER, CONTINUING TO WEAN LEVOPHED.
--- NOTE | 2018-10-30 03:32 | NUR ---
REASSESSMENT COMPLETED, NO CHANGES FROM PREVIOUS ASSSESSMENT, PT REPOSITIONED IN BED FOR COMFORT, BP STABLE, WILL CONT TO MONITOR FOR CHANGES.
--- NOTE | 2018-10-30 04:45 | NUR ---
RADIOLOGY @ BS FOR AM CXR
[2018-10-30 06:50] LABS: BASOPHILS 0.2 % (0-2); EOSINOPHILS 0 % (0-7); HEMATOCRIT 36.3 % (42.0-54.0); HEMOGLOBIN 12.1 g/dL (13.5-17.5); IMMATURE GRANULOCYTES 0.2 % (0-5); LYMPHOCYTES 7.1 % (15-50); MCH 33.4 pg (26.0-34.0); MCHC 33.3 g/dL (31.0-37.0); MCV 100.3 fL (80.0-100.0); MEAN PLATELET VOLUME 11.8 fL (7.4-10.4); MONOCYTES 3.8 % (2-11); NEUTROPHILS 88.7 % (40-80); PLATELET COUNT 95 10x3/uL (130-400); RBC 3.62 10x6/uL (4.20-6.10); WBC 12.3 10x3/uL (4.8-10.8)
--- NOTE | 2018-10-30 07:00 | NUR ---
AM MEDS GIVEN CRUSHED IN APPLESAUCE WITH WIFES ASSISTANCE, PT REPOSITIONED UP IN BED FOR COMFORT, BP STABLE CONTINUING TO WEAN LEVOPHED TOLERATED.
[2018-10-30 07:24] LABS: CALCIUM 8.7 mg/dL (8.5-10.1); CARBON DIOXIDE 25.8 mmol/L (21.0-32.0); CREATININE - SERUM 5.8 mg/dL (0.6-1.3); PHOSPHOROUS 7.8 mg/dL (2.5-4.9); POTASSIUM - SERUM 4.8 mmol/L (3.5-5.1)
[2018-10-30 08:44] LABS: PLATELET ESTIMATE DECREASED
--- NOTE | 2018-10-30 10:01 | NUR ---
0730-T EMELI MOLD SHEET CLEANER WITH RENAL SERVICES AT BEDSIDE-SPOKE WITH AND PT REGARDING CURRENT STATUS AND PLANNED COURSE OF TREATMENT-PT APPEARS ALERT-AND AWARE 0930-RR 22 SAT 98
--- NOTE | 2018-10-30 14:06 | NUR ---
1230-PHYSICAL THERAPY ASSESSMENT AT BEDSIDE-KELSEY PT AT SIDE OF BED BEARED WEIGHT ON FEET X3-WITH 90% ASSIST 1300-PLACED ON BIPAP MASK
--- NOTE | 2018-10-30 15:56 | NUR ---
DR COWART AT BEDSIDE- AND PT SLEEPING-SR ON MONITOR-BIPAP ON -STATUS REPORT GIVEN NO FURTHER ORDERS LEFT AT THIS TIME
--- NOTE | 2018-10-30 19:00 | NUR ---
BEDSIDE SHIFT REPORT RECEIVED FROM DAY SHIFT RN, AT BEDSIDE, INITIAL ASSESSMENT COMPLETE SEE FLOW SHEET, PT AAO WITH PERIODS OF CONFUSION, DENIES PAIN, VSS, HOB ELEVATED, ON BIPAP @30% FiO2, PT TOLLERATING WELL, REPOSITIONED UP IN BED FOR COMFORT, WILL CONTINUE TO MONITOR
--- NOTE | 2018-10-30 21:00 | NUR ---
MEDS GIVEN PER mar/ORDERS, MEDS CRUSHED GIVEN WITH APPLESAUCE, ASSISTS IN GIVING PATIENT MEDICATION, pATIENT TOLERATED WELL IN NO ACUTE SIGNS SYMPTOMS OF ACUTE DISTRESS, WILL CONTINUE TO MONITOR
--- NOTE | 2018-10-30 23:00 | NUR ---
REASSESSMENT COMPLETE, NO ACUTE CHANGES SINCE PREVIOUS ASSESSMENT, VSS, REPOSITION PATIENT FOR COMFORT, AT BEDSIDE, WE WILL CONTINUE TO MONITOR
[2018-10-31] VITALS (88 sets, daily range): BP systolic 70–135; BP diastolic 28–83
--- NOTE | 2018-10-31 03:10 | NUR ---
PT C/O SORE THROAT, PT REFUSES PAIN MEDS OTHER THAN TYLENOL, MED GIVEN SEE MAR
[2018-10-31 06:00] LABS: BASOPHILS 0.1 % (0-2); EOSINOPHILS 0 % (0-7); HEMATOCRIT 35.8 % (42.0-54.0); HEMOGLOBIN 11.7 g/dL (13.5-17.5); IMMATURE GRANULOCYTES 0.4 % (0-5); LYMPHOCYTES 7.1 % (15-50); MCH 33.1 pg (26.0-34.0); MCHC 32.7 g/dL (31.0-37.0); MCV 101.4 fL (80.0-100.0); MONOCYTES 2.7 % (2-11); NEUTROPHILS 89.7 % (40-80); PLATELET COUNT 79 10x3/uL (130-400); RBC 3.53 10x6/uL (4.20-6.10); RDW 18.1 % (11.5-14.5); WBC 9.3 10x3/uL (4.8-10.8)
--- NOTE | 2018-10-31 06:00 | NUR ---
COMPLETE BED BATH AND LINEN CHANGE WITH NEW GOWN, PT TOLLERATED WELL, VSS, WILL CONTINUE TO MONITOR
[2018-10-31 06:26] LABS: INR 1.38 (0.85-1.17); PROTIME 16.4 SECONDS (11.6-15.0)
[2018-10-31 06:37] LABS: ANION GAP 18.1 mmol/L (8-16); CALCIUM 8.6 mg/dL (8.5-10.1); CARBON DIOXIDE 25.8 mmol/L (21.0-32.0); CREATININE - SERUM 7.2 mg/dL (0.6-1.3); POTASSIUM - SERUM 4.9 mmol/L (3.5-5.1)
[2018-10-31 06:39] LABS: PHOSPHOROUS 9.2 mg/dL (2.5-4.9)
[2018-10-31 07:07] LABS: APTT 36.2 SECONDS (22.8-39.4)
--- NOTE | 2018-10-31 10:47 | NUR ---
Nutrition Follow-up: reports that pt ate a small amt of breakfast this AM. Does not care for pureed food. Seen by ST on 10/28; they rec puree with possible consideration of NG/PEG tube if intake does not increase. reports pt drinking at least 1 Nepro/day. States sore throat improving; receiving Robitussin. Diet: Renal ADA, Puree, Nepro with meals PO intake: 50% avg x 3 meals (10/30) Wt: 182# Last BM: possible 10/27 per Labs noted: Glu 227, K+ 4.9, PO4 9.2 Meds noted: Solumedrol, Humulin Continue current diet with consistencies per ST. MD may consider Renvela powder with meals 2/[address] available for assistance with nutrition support if needed. RD following.
--- NOTE | 2018-10-31 12:21 | NUR ---
DIALYSIS NURSE IN ROOM. WILL WAIT UNTIL DIALYSIS IS COMPLETED TO GIVE ANTIBIOTIC.
--- NOTE | 2018-10-31 12:42 | NUR ---
LEVOPHED INCREASED AT THIS TIME TO 5MCG/MIN. ON DIALYSIS WITH BP 99/36 MAP 48. WILL CONTINUE TO MONITOR AND TREAT NEEDED.
--- NOTE | 2018-10-31 13:37 | NUR ---
CONTINUES ON DIALYSIS. BP 98/40 MAP 59. INCREASED LEVOPHED TO 20MCG/MIN WHILE ON DIALYSIS PER ORDERS. WILL CONTINUE TO MONITOR.
--- NOTE | 2018-10-31 14:23 | NUR ---
CONTINUES ON DIALYSIS. PULLED UP AND REPOSITIONED FOR COMFORT. SPEECH THERAPY AT BEDSIDE. WILL CONTINUE TO MONITOR.
--- NOTE | 2018-10-31 14:24 | NUR ---
DR. LOPEZ PAGED AT 1415 TO NOTIFY OF CONSULT.
[2018-10-31 16:03] LABS: % SATURATION 37 % (15-55); IRON 43 ug/dl (35-150); TOTAL IRON BIND CAPACITY 115 ug/dl (260-445); UNSAT IRON BIND CAPACITY 72 ug/dl (150-375)
--- NOTE | 2018-10-31 19:00 | NUR ---
REPORT RECEIVED, INITIAL ASSESSMENT COMPLETE SEE FLOW SHEET, PT ON BIPAP @30%FiO2, TOLLERATING WELL, LEFT SUBCLAVIAN CVL INFUSING MEDS PER ORDERS/MAR, AT BEDSIDE, UPDATE GIVEN, NO QUESTIONS AT THIS TIME, VSS, WILL CONTINUE TO MONITOR
--- NOTE | 2018-10-31 19:14 | NUR ---
PT AWAKE BIPAP CURRENTLY IN USE. FI02 30% BILATERAL FAINT CRACKLES TO ALL RUSSELL OF AUS. TX GIVEN INLINE WITH BILEVEL SPO2 95% RR 26 NO CYANOSIS NO IMMEDIATE S/S RESP DISTRESS
--- NOTE | 2018-10-31 22:23 | NUR ---
PT APPEARS TO BE RESTING COMFORTABLY BILEVEL IN USE. FIO2 30% SPO2 95 ZERO CYANOSIS NO IMMEDIATE S/S RESP DISTRESS NOTED
--- NOTE | 2018-10-31 23:00 | NUR ---
REASSESSMENT COMPLETE SEE FLOW SHEET, NO ACUTE CHANGES NOTED, PT ON BIPAP @30% FiO2, TOLLERATING WELL, TCDB COMPLETED, AT BEDSIDE, MEDS GIVEN PER MAR/ORDERS, VSS, WILL CONTINUE TO MONITOR
[2018-11-01] VITALS (70 sets, daily range): BP systolic 83–126; BP diastolic 33–64
--- NOTE | 2018-11-01 03:00 | NUR ---
REASSESSMENT COMPLETE SEE FLOW SHEET, REPOSITIONED PT FOR COMFORT, VSS, WILL CONTINUE TO MONITOR
[2018-11-01 05:36] LABS: BASOPHILS 0.2 % (0-2); EOSINOPHILS 0 % (0-7); HEMATOCRIT 35.9 % (42.0-54.0); HEMOGLOBIN 11.7 g/dL (13.5-17.5); IMMATURE GRANULOCYTES 0.5 % (0-5); LYMPHOCYTES 7.9 % (15-50); MCH 33.2 pg (26.0-34.0); MCHC 32.6 g/dL (31.0-37.0); MEAN PLATELET VOLUME 12.9 fL (7.4-10.4); MONOCYTES 6.7 % (2-11); NEUTROPHILS 84.7 % (40-80); RBC 3.52 10x6/uL (4.20-6.10); RDW 18.4 % (11.5-14.5)
[2018-11-01 05:47] LABS: PLATELET COUNT 52 10x3/uL (130-400); WBC 5.7 10x3/uL (4.8-10.8)
[2018-11-01 06:20] LABS: ALBUMIN 2.4 g/dL (3.4-5.0); BILIRUBIN - TOTAL 2.04 mg/dL (0.2-1.3); CALCIUM 8.2 mg/dL (8.5-10.1); CARBON DIOXIDE 26.7 mmol/L (21.0-32.0); CREATININE - SERUM 5.9 mg/dL (0.6-1.3); POTASSIUM - SERUM 4.7 mmol/L (3.5-5.1); PROTEIN - SERUM 6.3 g/dL (6.4-8.2)
[2018-11-01 06:58] LABS: PLATELET ESTIMATE DECREASED
--- NOTE | 2018-11-01 07:10 | NUR ---
SHIFT REPORT RECEIVED. AWAKE, ON BIPAP AT 30% AT THIS TIME. HR 84 NORMAL SINUS. CVL ON LEFT SUBCLAVIAN WITH LEVOPHED AND DOBUTAMINE INFUSING. SEE IV FLOWSHEET FOR RATES. SHIFT ASSESSMENT COMPLETED AND CHARTED. SPOUSE AT BEDSIDE. BED ALARM ON. WILL CONTINUE TO MONITOR.
--- NOTE | 2018-11-01 09:10 | NUR ---
PT SITTING UP IN CHAIR. TRANSFER TO CHAIR BY PT. AM MEDS GIVEN WITH APPLESAUCE. SPOUSE ASSISTED. ON 4L ON 02 VIA NC. NO FURTHER NEEDS. WILL CONTINUE TO MONITOR.
--- NOTE | 2018-11-01 12:00 | NUR ---
DR. COWART AT BEDSIDE. NO DIALYSIS TODAY.
--- NOTE | 2018-11-01 13:00 | NUR ---
PULLED UP AND REPOSITIONED IN CHAIR FOR COMFORT. SPOUSE AT BEDSIDE. COPLETE BED LINEN CHANGE PROVIDED. NO FURTHER NEEDS AT THIS TIME. WILL CONTINUE TO MONITOR.
--- NOTE | 2018-11-01 15:00 | NUR ---
PT BACK IN BED AT THIS TIME. RE-ASSESSMENT COMPLETED. ON 3 VIA NC. NO ACUTE CHANGES FROM PREVIOUS ASSESSMENT. SPOUSE NOT IN ROOM AT THIS TIME. WILL CONTINUE TO MONITOR.
--- NOTE | 2018-11-01 16:14 | NUR ---
APTT REDRAW WAS 76.5. TARGET RANGE PER PROTOCOL IS 52.7-105.3. REDRAW VALUE IN RANGE. DR. LOPEZ NOTIFIED. KEEP AT CURRENT RATE. WILL CONTINUE TO MONITOR.
--- NOTE | 2018-11-01 16:52 | NUR ---
BLOOD GLUCOSE 308. TREATED WITH 8 UNITS OF INSULIN REG PER SLIDING SCALE. SPOUSE NOT AT BEDSIDE. EVENING MEDS GIVEN WITH APPLESAUCE. TOLERATED WELL. NO FURTHER NEEDS. WILL CONTINUE TO MONITOR.
--- NOTE | 2018-11-01 19:00 | NUR ---
REPORT RECEIVED, SHIFT ASSESSMENT COMPLETE SEE FLOW SHEET, PT RESTING IN BED COMFORTABLY, AT BEDSIDE, UPDATE GIVEN, NO QUETSIONS AT THIS TIME, PT VSS, DENIES PAIN, ON BIPAP @30% FiO2 TOLLERATING WELL, LEFT SUBCLAVIAN CVL DRSG CDI PATENT, REPOSITIONED IN BED FOR COMFORT, HOB ELEVATED, WILL CONTINUE TO ASSESS
--- NOTE | 2018-11-01 21:00 | NUR ---
AND SONS AT BEDSIDE, NO NEEDS STATED AT THIS TIME, MEDS GIVEN PER MAR/ORDERS
--- NOTE | 2018-11-01 21:50 | NUR ---
PT CURRENTLY WEARING BIPAP. FI02 30% SPO2 96% ZERO CYANOSIS FAINT EXP CRACKLES TO R MEDIAL LOBE EQUALATERAL EXCURSION NO IMMEDIATE S/S RESP DISTRESS
--- NOTE | 2018-11-01 23:00 | NUR ---
REASSESSMENT COMPLETE SEE FLOW SHEET, NO ACUTE CHANGES OR DISTRESS NOTED, VSS, REPOSITIONED PT FOR COMFORT, AT BEDSIDE
[2018-11-02] VITALS (82 sets, daily range): BP systolic 86–135; BP diastolic 28–80
--- NOTE | 2018-11-02 00:50 | NUR ---
PT APPEARS TO BE RESTING COMFORTABLY BILEVEL IN USE. FI02 30% SPO2 95
--- NOTE | 2018-11-02 06:00 | NUR ---
CHG/BED BATH COMPLETED WITH LINEN AND GOWN CHANGE, PT TOLLERATED WELL, DENIES PAIN OR NEEDS, REPOSITIONED FOR COMFORT, HOB ELEVATED, PLACED ON BIPAP @30% FiO2, AT BEDSIDE, WILL CONTINUE TO MONIITOR
[2018-11-02 07:03] LABS: APTT 109.9 SECONDS (22.8-39.4); INR 7.01 (0.85-1.17); PROTIME 59.5 SECONDS (11.6-15.0)
--- NOTE | 2018-11-02 07:20 | NUR ---
AWAKES PHYSICAL STIMULI. ON BIPAP INBED. SKIN WARM AND DRY. NO DISTRESS. AT BEDSIDE. LEFT SUBCLAVIAN DRESSING DRY AND INTACT. TRIPLE CENTRAL LINE INFUSING WITH DOBUATIME AT 5 MCG/KG/MIN, ARGATROBAN AT 0.5MCG/KG/MIN, LEVOPHED AT 2 MCG. NS AT KVO. HEAD OF BED ELEVATED 30 DEGREES.
--- NOTE | 2018-11-02 08:00 | NUR ---
FEED BREAKFAST TO PATIENT,SOME COUGHING NOTED AT TIMES. PO MEDS CRUSHED AND PLACED IN PUDDING.
--- NOTE | 2018-11-02 09:00 | NUR ---
UP IN CHAIR AT BEDSIDE PER PHYSICAL THERAPY, TOTAL LIFT TO GET UP.
--- NOTE | 2018-11-02 10:06 | NUR ---
BIPAP REPLACED AT FAMILY REQUEST.
--- NOTE | 2018-11-02 11:00 | NUR ---
PHYSICAL THERAPY CALLED TO PUT PATIENT BACK IN BED FOR DIALYSIS
--- NOTE | 2018-11-02 11:30 | NUR ---
DIALYSIS SETTING UP MEDICATIONS HELD UNTIL AFTER DIALYSIS COMPLETE.
[2018-11-02 11:32] LABS: BASOPHILS 0 % (0-2); EOSINOPHILS 0 % (0-7); HEMATOCRIT 35.7 % (42.0-54.0); HEMOGLOBIN 11.6 g/dL (13.5-17.5); IMMATURE GRANULOCYTES 0.6 % (0-5); LYMPHOCYTES 9.5 % (15-50); MCH 33.2 pg (26.0-34.0); MCHC 32.5 g/dL (31.0-37.0); MCV 102.3 fL (80.0-100.0); MEAN PLATELET VOLUME 13.4 fL (7.4-10.4); MONOCYTES 3.2 % (2-11); NEUTROPHILS 86.7 % (40-80); PLATELET COUNT 57 10x3/uL (130-400); RBC 3.49 10x6/uL (4.20-6.10); RDW 18.1 % (11.5-14.5); WBC 5.3 10x3/uL (4.8-10.8)
[2018-11-02 12:00] LABS: ANION GAP 19.8 mmol/L (8-16); CALCIUM 7.7 mg/dL (8.5-10.1); CARBON DIOXIDE 24.4 mmol/L (21.0-32.0); POTASSIUM - SERUM 5.2 mmol/L (3.5-5.1)
[2018-11-02 12:01] LABS: CREATININE - SERUM 7.8 mg/dL (0.6-1.3)
--- NOTE | 2018-11-02 12:20 | NUR ---
LUNCH TRAY SERVED. AT BEDSIDE
--- NOTE | 2018-11-02 13:39 | NUR ---
Nutrition Follow-up: reports PO intake remains about the same. No N/V. Sore throat improving. No BM yet. Being followed by ST who continues to rec puree with thin liquids and possible consideration for NG/PEG placement 2/2 poor PO intake. Diet: Renal ADA, Puree, Nepro with meals PO intake: 34% avg x 5 meals Wt: 184# Labs noted: Glu 279, K+ 4.7, Ca 8.2, PO4 9.2 (10/31) Meds noted: Solumedrol, Humulin Continue current diet as tolerated. Agree with ST; if poor PO intake continues, may consider nutrition support. RD following.
--- NOTE | 2018-11-02 14:00 | NUR ---
LEVOPHED ADJUST FOR BLOOD PRESSURE DURING DIALYSIS. ALBUMIN PROVIDED TO HELP WITH BLOOD PRESSURE. PATIENT RESTING COMFORTABLY AT BEDSIDE. NO DISTRESS
--- NOTE | 2018-11-02 16:00 | NUR ---
DIALYSIS COMPLETE. DIFFICULTY TIME GETTING SITES TO CLOT OFF. HAVING TO HOLD PRESSURE MORE THAN USUAL. PATIENT TOLERATES FAIR.
--- NOTE | 2018-11-02 17:00 | NUR ---
SUPER TRAY SERVED. FEED PATIENT. TOLERATED FAIR. RESTING COMFORTABLY NO DISTRESS.
--- NOTE | 2018-11-02 18:00 | NUR ---
DECLINES TO BE TURNED OR REPOSITIONED IN BED. HEAD OF BED ELEVATED 30 DEGREES. NO DISTRESS
--- NOTE | 2018-11-02 19:15 | NUR ---
PT RECEIVED WITH EYES OPEN. AT BEDSIDE. RECEIVING ARGATROBAN, DOBUTAMINE, LEVOPHED, AND NS TO LEFT SUBCLAVIAN. NO S/S OF DISTRESS. ON HIGH FLOW N/C 4LPM. NO NEEDS MADE KNOWN, CALL LIGHT IN REACH. WILL CONITNUE TO OBSERVE.
--- NOTE | 2018-11-02 21:03 | NUR ---
PT RECIEIVED MEDICATIONS PER MAR DISOLVED AND PLACE IN APPLE SAUCE. SOME COUGHING NOTED, PINK SPUTUM NOTED. COUGH CEASED. CONTINUES HIGH FLOW N/C 4LPM. AT BEDSIDE. WILL CONTINUE TO OBSERVE. CALL LIGHT IN REACH.
--- NOTE | 2018-11-02 22:30 | NUR ---
PT WITH EYES OPEN. NO S/S OF DISTRESS. DRESSING CHANGED TO LEFT SUBCLAVIAN, PER PROTOCOL. PT TOLERATED WELL. NO NEEDS MADE KNOWN. WILL CONTINUE TO OBSERVE.
--- NOTE | 2018-11-02 23:05 | NUR ---
PT PLACED ON BIPAP 30%. WILL CONTINUE TO OBSERVE.
[2018-11-03] VITALS (53 sets, daily range): BP systolic 80–131; BP diastolic 33–66
--- NOTE | 2018-11-03 01:23 | NUR ---
PT RESTING WITH EYES CLOSED AND CHEST RISING. CONTINUES BIPAP. WAKES AND ATTEMPTS TO REMOVE, STOPS WHEN ASKED TO LEAVE ALONE. SPO2 DROPS AT TIMES DUE TO PT GRABBING SIDERAIL, SPO2 BACK TO MID 90'S ONCE PT RELEASES PHERESIS NURSE. AT BEDSIDE. WILL CONTINUE TO OBSERVE.
--- NOTE | 2018-11-03 03:27 | NUR ---
REASSESSMENT COMPLETED, SEE FLOW SHEET.
[2018-11-03 04:22] LABS: BASOPHILS 0.2 % (0-2); EOSINOPHILS 0 % (0-7); HEMATOCRIT 33.5 % (42.0-54.0); HEMOGLOBIN 10.9 g/dL (13.5-17.5); IMMATURE GRANULOCYTES 0.7 % (0-5); LYMPHOCYTES 5.7 % (15-50); MCHC 32.5 g/dL (31.0-37.0); MCV 101.5 fL (80.0-100.0); MEAN PLATELET VOLUME 12.5 fL (7.4-10.4); MONOCYTES 4.7 % (2-11); NEUTROPHILS 88.7 % (40-80); PLATELET COUNT 58 10x3/uL (130-400); RDW 18.1 % (11.5-14.5); WBC 5.8 10x3/uL (4.8-10.8)
[2018-11-03 04:52] LABS: ANION GAP 16.8 mmol/L (8-16); CALCIUM 7.8 mg/dL (8.5-10.1); CARBON DIOXIDE 27.1 mmol/L (21.0-32.0); CREATININE - SERUM 6.1 mg/dL (0.6-1.3); POTASSIUM - SERUM 4.9 mmol/L (3.5-5.1)
[2018-11-03 05:20] LABS: APTT 92.2 SECONDS (22.8-39.4)
[2018-11-03 05:22] LABS: INR 6.11 (0.85-1.17); PROTIME 53.4 SECONDS (11.6-15.0)
--- NOTE | 2018-11-03 06:52 | NUR ---
CHG BATH GIVEN WITH COMPLETE LINEN CHANGE. PT BACK ON BIPAP. TOLERATING WELL. WILL CONTINUE TO OBSERVE.
--- NOTE | 2018-11-03 07:00 | NUR ---
RECEIVED BEDSIDE REPORT ON PATIENT AND ASSUMED CARE. PATIENT RESTING QUIETLY ON BIPAP FIO2 - 30%, 14/7, RATE 10, SPO2- 92%, CM - SR RATE 84, BBS - EXPIRATORY WHEEZE ON RIGHT, CLEAR ON LEFT. IV LEFT SUBCLAVIAN INFUSING LEVOPHED AT 6 MCG/MIN (11.3 CC/HR), DOBUTAMINE 5 MCG/KG/MIN (13.5 CC/HR, ARGATROBAN AT 0.3 MCG/KG/MIN (1.6 CC/HR) AND NS AT 10 CC/HR. TURNED AND REPOSTIONED IN BED. A/V FISTULA TO RIGHT FA WITH POSTIVE BRUIT AND THRILL NOTED. HEAD TO TOE ASSESSMENT COMPLETED. VSS.
--- NOTE | 2018-11-03 07:57 | NUR ---
PATIENT GIVEN BREAKFAST TRAY, VSS.
--- NOTE | 2018-11-03 09:00 | NUR ---
PATIENT UP TO BESIDE CHAIR. VSS.
--- NOTE | 2018-11-03 10:00 | NUR ---
PATIENT BACK TO BED. VSS. PLACED BACK ON BIPAP.
--- NOTE | 2018-11-03 11:00 | NUR ---
REASSESSMENT COMPLETE. VSS.
--- NOTE | 2018-11-03 12:00 | NUR ---
PATIENT GIVEN LUNCH TRAY.
--- NOTE | 2018-11-03 12:24 | NUR ---
DR. LEÓN AT ROOM TO D/C ARGATROBAN GTT.
--- NOTE | 2018-11-03 13:30 | NUR ---
PATIENT TURNED AND REPOSTIONED IN BED. VSS.
--- NOTE | 2018-11-03 15:01 | NUR ---
REASSESSMENT COMPLETE, VSS. TURNED AND REPOSTIONED IN BED.
--- NOTE | 2018-11-03 16:43 | NUR ---
PATIENT TURNED AND REPOSITIONED IN BED. VSS.
--- NOTE | 2018-11-03 19:35 | NUR ---
PT RECEIVED IN BED WITH EYES OPEN. ALERT AND CONFUSED. LEFT SUBCLAVIAN WITH DOBUTAMINE, LEVOPHED, AND NS. IN CHAIR AT BEDSIDE. PT TALKING TO SELF IF HE IS AT WORK. PT REPOSITIONED AFTER REAPPLYING B/P CUFF, AND SPO2 SENSOR. NO S/S OF DISTRESS. NO OTHER NEEDS KNOWN. WILL CONTINUE TO OBSERVE.
--- NOTE | 2018-11-03 21:38 | NUR ---
PT RESTING WITH EYES CLOSED AND CHEST RISING AT THIS TIME. HAS RECEIVED SCHEDULED MEDICATIONS, TOLERATED WELL. VSS. WILL CONTINUE TO OBSERVE. SLEEPING AT BEDSIDE.
--- NOTE | 2018-11-03 23:17 | NUR ---
REASSESSMENT COMPLETED, SEE FLOW SHEET. AT BEDSIDE. WILL CONTINUE TO OBSERVE.
[2018-11-04] VITALS (71 sets, daily range): BP systolic 68–122; BP diastolic 21–63
--- NOTE | 2018-11-04 01:15 | NUR ---
PT RESTING WITH EYES CLOSED AND CHEST RISING. CONTINUES BIPAP, TOLERATING WELL. WILL CONTINUE TO OBSERVE.
--- NOTE | 2018-11-04 03:21 | NUR ---
REASSESSMENT COMPLETED, SEE FLOW SHEET. PT CONTINUES TO PULL OF EQUIPMENT SUCH B/P CUFF, SPO2 SENSOR, BIPAP MASK. WITH ITEMS REPLACED. AT BEDSIDE. WILL CONTINUE TO OBSERVE.
[2018-11-04 06:39] LABS: BASOPHILS 0 % (0-2); EOSINOPHILS 0 % (0-7); HEMATOCRIT 33.6 % (42.0-54.0); HEMOGLOBIN 10.6 g/dL (13.5-17.5); IMMATURE GRANULOCYTES 0.7 % (0-5); LYMPHOCYTES 5.3 % (15-50); MCHC 31.5 g/dL (31.0-37.0); MEAN PLATELET VOLUME 13.2 fL (7.4-10.4); MONOCYTES 2.7 % (2-11); NEUTROPHILS 91.3 % (40-80); RBC 3.21 10x6/uL (4.20-6.10); RDW 17.8 % (11.5-14.5)
[2018-11-04 06:51] LABS: MCV 104.7 fL (80.0-100.0); PLATELET COUNT 91 10x3/uL (130-400)
[2018-11-04 06:56] LABS: ANION GAP 17.4 mmol/L (8-16); CALCIUM 8.2 mg/dL (8.5-10.1); CARBON DIOXIDE 25.1 mmol/L (21.0-32.0); CREATININE - SERUM 7.5 mg/dL (0.6-1.3); POTASSIUM - SERUM 5.5 mmol/L (3.5-5.1)
--- NOTE | 2018-11-04 07:00 | NUR ---
RECEIVED BEDSIDE REPORT ON PATIENT AND ASSUMED CARE. PATIENT AWAKE, CONFUSED, ON NC AT 4 LPM WITH SPO2 - 96%, HR 100 ON CM, SR, BBS - COARSE WITH EXPIRATORY WHEEZE ON LEFT. BOWEL SOUNDS POSITIVE X 4. RIGHT A/V FISTULA WITH POSITVE THRILL AND BRUIT. LEFT SUBCLAVIAN CVL, WITH LEVOPHED INFUSING AT 8 MCG/MIN (15 CC/HR), DOBUTAMINE AT 5 MCG/KG/MIN (13.1 CC/HR) AND NS AT 10 CC/HR. PATIENT TURNED AND REPOSITIONED IN BED. VSS. HEAD TO TOE ASSESSMENT COMPLETE.
--- NOTE | 2018-11-04 07:26 | NUR ---
0155 VS 94/41 (50), 88, 26, 98% LEVOPHED INCREASED TO 7MCG/KG/MIN 0346 VS 101/32 (55), 92, 21, 96% LEVOPHED INCREASED TO 8MCG/KG/MIN
[2018-11-04 07:49] LABS: APTT 60.7 SECONDS (22.8-39.4); INR 2.03 (0.85-1.17); PROTIME 22.3 SECONDS (11.6-15.0)
[2018-11-04 08:41] LABS: PLATELET ESTIMATE DECREASED
--- NOTE | 2018-11-04 09:14 | NUR ---
PATIENT GIVEN COMPLETE CHG BATH AND LINENS CHANGED. TURNED AND REPOSITIONED IN BED. VSS.
--- NOTE | 2018-11-04 09:29 | NUR ---
DR. LOPEZ AT ROOM UPDATED AND EXAMINES PATIENT. TO START PATIENT ON MIRALAX AND COLACE.
--- NOTE | 2018-11-04 11:00 | NUR ---
RESSESSMENT COMPLETE. VSS. DIALYSIS AT ROOM SETTING UP.
--- NOTE | 2018-11-04 12:00 | NUR ---
PATIENTS BP 86/37 (52) LEVOPHED GTT INCREASED TO 20 MCG/MIN FOR DIALYSIS.
--- NOTE | 2018-11-04 13:04 | NUR ---
PATIENT TURNED AND REPOSITIONED IN BED. VSS.
--- NOTE | 2018-11-04 13:36 | NUR ---
DIALYSIS COMPLETE, VSS. 2 LITERS REMOVED. LEVOPHED GTT DECREASED TO 15 MCG/MIN, WEANING POST DIALYSIS.
--- NOTE | 2018-11-04 14:36 | NUR ---
PATIENT PLACED ON BIPAP FOR REST.
--- NOTE | 2018-11-04 15:03 | NUR ---
REASSESSMENT COMPLETE. PATIENT TURNED AND REPOSITIONED. BP 80/21 (64), LEVOPHED GTT INCREASED BACK TO 15 MCG/MIN. BP RECHECKED 114/49 (79). WILL CONTINUE TO MONITOR AND TITRATE APPRORAITE.
--- NOTE | 2018-11-04 15:06 | NUR ---
DR. MCCAIN AT ROOM EXAMINES PATIENT AND UPDATED. SPEAKS WITH AND ANSWERS QUESTIONS.
--- NOTE | 2018-11-04 15:55 | NUR ---
PATIENT TAKEN OFF BIPAP, TO 4 LPM O2 VIA NC.
--- NOTE | 2018-11-04 16:35 | NUR ---
BP 81/45 (57), LEVOPHED GTT INCREASED TO 15 MCG/MIN. PATIENT TURNED AND REPOSTIONED IN BED.
--- NOTE | 2018-11-04 18:07 | NUR ---
PATIENT RESTING QUIETLY, VSS. SLEEPING AT BEDSIDE.
--- NOTE | 2018-11-04 19:39 | NUR ---
PT RECEIVED WITH EYES CLOSED AND CHEST RISING. ANSWERS QUESTIONS WITH EYES CLOSED AND NOT WANTING TO OPEN THEM. PT CONFUSED. AT BEDSIDE. LEFT SUBCLAVIAN WITH DOBUTAMINE AND LEVOPHED. VSS. CALL LIGHT IN REACH. WILL CONTINUE TO OBSERVE.
--- NOTE | 2018-11-04 22:29 | NUR ---
PT RECEIVED SCHEDULED MEDICATONS AND PRN MELATONIN. BEGAN COUGHING AT END OF ADMINISTRATION OF ORAL MEDS. ATTEMPTED TO SUCTION AFTER PT CONTINUED COUGH. PT OPENED MOUTH AND ALLOWED USE OF YONKER, A SMALL AMOUNT OF SALIVE SUCTIONED AND COUGH CEASED. VSS. AT BEDSIDE. PT HAS BEEN CALM. NOT PULLING AT MONITOR EQUIPMENT AT THIS TIME. CALL LIGHT IN REACH. WILL CONTINUE TO OBSERVE.
--- NOTE | 2018-11-04 23:40 | NUR ---
REASSESSMENT COMPLETED, SEE FLOW SHEET. WILL CONTINUE TO OBSERVE.
--- NOTE | 2018-11-04 23:53 | NUR ---
PT PLACED ON BIPAP, TOLERATING WELL. WILL CONTINUE TO OBSERVE.
[2018-11-05] VITALS (96 sets, daily range): BP systolic 70–146; BP diastolic 28–99
--- NOTE | 2018-11-05 00:30 | NUR ---
PT CONTINUES TO TALK AND FIGHTING SLEEP. COVERED LINES AND TUBES TO KEEP PT FROM PULLING OFF. HEART RATE STILL HEART RATE DECREASED NOW TO 117. WILL CONTINUE TO MONITOR
--- NOTE | 2018-11-05 01:36 | NUR ---
PT RESTING WITH EYES CLOSED AND CHEST RISING. CONTINUES BIPAP. WILL CONTINUE TO OBSERVE
[2018-11-05 04:45] LABS: BASOPHILS 0.1 % (0-2); EOSINOPHILS 0 % (0-7); HEMATOCRIT 31.6 % (42.0-54.0); HEMOGLOBIN 10.1 g/dL (13.5-17.5); IMMATURE GRANULOCYTES 0.4 % (0-5); LYMPHOCYTES 3.2 % (15-50); MCH 33.7 pg (26.0-34.0); MCV 105.3 fL (80.0-100.0); MONOCYTES 2.3 % (2-11); PLATELET COUNT 85 10x3/uL (130-400); RDW 18.2 % (11.5-14.5)
[2018-11-05 04:49] LABS: WBC 11.2 10x3/uL (4.8-10.8)
[2018-11-05 04:57] LABS: ANION GAP 14.9 mmol/L (8-16); CALCIUM 7.8 mg/dL (8.5-10.1); CARBON DIOXIDE 27.5 mmol/L (21.0-32.0); CREATININE - SERUM 6.9 mg/dL (0.6-1.3); POTASSIUM - SERUM 5.4 mmol/L (3.5-5.1)
[2018-11-05 04:59] LABS: INR 1.68 (0.85-1.17); PROTIME 19.2 SECONDS (11.6-15.0)
[2018-11-05 05:00] LABS: APTT 42.3 SECONDS (22.8-39.4)
--- NOTE | 2018-11-05 07:14 | NUR ---
PT OFF BIPAP AND RECEIVED AM MEDICATONS. TOLERATING WELL.WILL CONTNIUE TO OBSERVE
--- NOTE | 2018-11-05 07:30 | NUR ---
SLEEPY, AWAKES EASILY TO VERBAL STIMULI. SKIN WARM AND DRY. ON NC AT 4 LITERS. DENIES PAIN. LEFT SUBCLAVIAN INFUSING WITH LEVOPHED AT 10 MCG/MIN. AND DOBUTAMINE AT 5 MCG/KG/MIN. HEAD OF ELEVATED 30 DEGREE. AT BEDSIDE. MAKING STATEMENT THAT DO NOT APPLY TO QUESTIONS OR STATEMENTS MADE. GOOD COUGH. MONITOR SR.
--- NOTE | 2018-11-05 08:15 | NUR ---
BREAKFAST SERVED. FEEDS PATIENT. ATE FAIR. MEDS CRUSHED AND PLACED IN FOOD.
--- NOTE | 2018-11-05 10:29 | NUR ---
COMPLETE HIBCLENS BATH GIVEN SHAVED. MEDIPLEX APPLIED TO SLIGHT RED COCCYX. HEELS RED, BRIDGED ON PILLOW REPOSITIONED ON RIGHT SIDE. HEAD OF BED ELEVATED 25 DEGREES. NO SKIN BREAKDOWN NOTED. SILVIA SOCKS REPLACED. TOLERATED WELL. WARM BLANKET PROVIDED WHEN BATH COMPLETE.
--- NOTE | 2018-11-05 11:30 | NUR ---
LUNCH TRAY SERVED. FEED PATIENT. ATE FAIR.
--- NOTE | 2018-11-05 12:00 | NUR ---
DR. BURROWS NOTIFIED OF RENAL WANTING HIM TO SEE PATIENT AND TALK WITH . STATES HE WILL SEE HIM TOMORROW
--- NOTE | 2018-11-05 13:00 | NUR ---
REPOSITIONED LEFT SIDE. TOLERATED WELL. AT BEDSIDE. INCREASING LEVOPHED TO KEEP SYS BP GREATER THAN 90
--- NOTE | 2018-11-05 13:59 | NUR ---
BLOOD CULTURES COLTON ONE FROM CVL AND ONE PERIPHERAL
--- NOTE | 2018-11-05 15:00 | NUR ---
REPOSITIONED. TALKING CONSTANTLY DENIES PAIN, COOPERATIVE. AT BEDSIDE.
--- NOTE | 2018-11-05 16:30 | NUR ---
PUREED DIET SERVED, FEEDING PATIENT. TOELRATING WELL.
--- NOTE | 2018-11-05 16:55 | NUR ---
DIALYSIS HERE SETTING UP. ALBUMIN GIVEN TO MAINTAIN BLOOD PRESSURE
--- NOTE | 2018-11-05 18:00 | NUR ---
DIALYSIS IN PROGRESS. TOLERATING FAIR AT THIS TIME
--- NOTE | 2018-11-05 18:27 | NUR ---
APPLIED BILEVEL 30% FIO2. PT RESTING COMFORTABLY V/S WITHIN PARAMETERS. SPO2 96 % BILATERAL C/D BS RR 17 UNLABORED EQUALATERAL EXCURSION ZERO CYANOSIS NO IMMEDIATE S/S RESP DISTRESS
--- NOTE | 2018-11-05 19:30 | NUR ---
INITIAL ASSESSMENT COMPLETE PT ON DIALYSIS AT THIS TIME. DIALYSIS NURSE STATES ALMOST COMPLETE. PT ON LEVOPHED AND DOBUTAMINE GTT. SLEEPY AND WORN OUT PTS AT BEDSIDE STATES ITS BEEN A LONG DAY. CM READING SR WITH ALARMS ON AND AUDIBLE. LEFT TLSC. PT ON BIPAP SEE RESP NOTES AND FLOWSHEETS. SEE SHIFT ASSESSMENT FLOWSHEET FOR COMPLETE ASSESSMENT. WILL CONTINUE TO MONITOR
--- NOTE | 2018-11-05 23:45 | NUR ---
PT HEART RATE UP TO 130'S ANXIOUS AND RESTLESS PULLING AT GOWN AND LEADS. PTS AT BEDSIDE. INFORMED PT TO TRY TO GET REST PTS SPEAKING WITH PT ABOUT HEART RATE
[2018-11-06] VITALS (87 sets, daily range): BP systolic 65–123; BP diastolic 31–87
--- NOTE | 2018-11-06 01:00 | NUR ---
WITH INCREASED HEART RATE CHECKED CVP READING 8 AT THIS TIME PT ON HF NC 4LPM WILL MONITOR
--- NOTE | 2018-11-06 02:00 | NUR ---
PT BACK ON BIPAP HEART RATE BACK DOWN SR 80-90'S WILL CONTINUE TO MONITOR
--- NOTE | 2018-11-06 03:00 | NUR ---
REASSESSMENT MADE PT RESTING QUIETLY HEART RATE 85. CPOC AT BEDSIDE
--- NOTE | 2018-11-06 05:00 | NUR ---
PT RESTING HAD DIFFICULTY GETTING TO SLEEP HEART RATE BACK TO 80'S. CPOC AT BEDSIDE
[2018-11-06 06:25] LABS: BASOPHILS 0.1 % (0-2); EOSINOPHILS 0 % (0-7); HEMOGLOBIN 9.6 g/dL (13.5-17.5); IMMATURE GRANULOCYTES 0.4 % (0-5); MCH 33.7 pg (26.0-34.0); MCV 105.3 fL (80.0-100.0); MEAN PLATELET VOLUME 12.7 fL (7.4-10.4); NEUTROPHILS 93.5 % (40-80); PLATELET COUNT 92 10x3/uL (130-400); RBC 2.85 10x6/uL (4.20-6.10); RDW 18.1 % (11.5-14.5); WBC 11.2 10x3/uL (4.8-10.8)
[2018-11-06 06:29] LABS: ANION GAP 14.4 mmol/L (8-16); CALCIUM 7.7 mg/dL (8.5-10.1); CREATININE - SERUM 6.1 mg/dL (0.6-1.3); POTASSIUM - SERUM 5.4 mmol/L (3.5-5.1)
[2018-11-06 06:43] LABS: APTT 35.9 SECONDS (22.8-39.4); INR 1.53 (0.85-1.17); PROTIME 17.8 SECONDS (11.6-15.0)
--- NOTE | 2018-11-06 07:00 | NUR ---
ON BIPAP, AWAKES EASILY MAKES EYE CONTACT. SKIN WARM AND DRY. LEFT SUBCLAVIAN TRIPEL LUMEN INFUSING WITH LEVOPHED AT 16 MCG/HOUR, DOBUTAMINE AT 5 MCG/KG/MIN. AT BEDSIDE. NO DISTRESS. MONITOR SINUS TACH
--- NOTE | 2018-11-06 08:00 | NUR ---
BREAKFAST SERVED. FEEDING PATIENT. MEDS CRUSHED FOR PATIENT. BILATERAL LUNGS SOUNDS MORE CONGESTED TODAY THAN YESTERDAY. HEAD OF BED ELEVATED 90 DEGREES. REPOSITIONED FOR BREAKFAST
[2018-11-06 08:20] LABS: PLATELET ESTIMATE DECREASED
--- NOTE | 2018-11-06 09:20 | NUR ---
TRICIA BLUM, HERE TALKED WITH . PATIENT WITH POOR APPETITE.
--- NOTE | 2018-11-06 10:10 | NUR ---
DR. LOPEZ HERE TALKED WITH AND FAMILY. PATIENT MORE ALERT TODAY.
--- NOTE | 2018-11-06 11:00 | NUR ---
DR. ROMERO HERE. TALKED WITH AND PATIENT. PATIENT NAPPING AT INTERVALS, NO DISTRESS. GOOD COUGH AT TIMES. SWALLOWING SPUTUM.
--- NOTE | 2018-11-06 12:00 | NUR ---
LUNCH SERVED ATE FAIR. FEED PATIENT.
--- NOTE | 2018-11-06 14:30 | NUR ---
NAPPING NO DISTRESS EYES CLOSED.
--- NOTE | 2018-11-06 15:30 | NUR ---
RENAL DOCTOR HERE. UPDATE GIVEN
--- NOTE | 2018-11-06 16:30 | NUR ---
DINNER TRAY SERVED. FEED BY . GOOD COUGH. NAPPING AT INTERVALS.
[2018-11-06 17:08] LABS: ADAMTS13 ACTIVITY 23.1 % (>66.8)
--- NOTE | 2018-11-06 19:00 | NUR ---
REPORT RECEIVED INITIAL ASSESSMENT COMPLETE FULL DETAILS ON ASSESSMENT SHIFT FLOWSHEET. PT RESTING QUIETLY WITH EYES CLOSED OPENS EYES TO VERBAL STIMULI FOLLOWS COMMANDS AND ORIENTED TO PERSON CLARI ON HFNC 4 LPM O2 SAT 95%, CHEST SOUNDS COARSE RHONCHI SHALLOW RESP ENCOURAGED TO TCDB. PT REPOSITIONED BUT IMMEDIATLEY TURNS BACK TO RIGHT SIDE. CM READING SR WITHOUT ECTOPY ALARMS ON AND AUDIBLE, PT ON LEVOPHED AND DOBUTAMINE GTTS INFUSING THROUGH LEFT TLSC CVP CALIBRATED WITH READING OF 11. SEE IV FLOWSHEET FOR DRIP CHANGES. BED IN LOW POSITION SIDE RAILS UP TIMES 3 FOR BED MOBILITY AND SAFETY. CL IN REACH
--- NOTE | 2018-11-06 22:00 | NUR ---
RT AT BEDSIDE PT PLACED ON BIPAP SEE RT NOTES AND FLOWSHEETS
--- NOTE | 2018-11-06 22:05 | NUR ---
APPLIED BILEVEL. FIO2 30% SP02 93% RR 26 TOLERATED APPLICATION WELL
--- NOTE | 2018-11-06 23:00 | NUR ---
REASSESSMENT COMPLETE PT ON BIPAP AT 30% AT THIS TIME. NO CHANGES IN DRIPS. CPOC. AT BEDSIDE
[2018-11-07] VITALS (74 sets, daily range): BP systolic 71–125; BP diastolic 37–106
--- NOTE | 2018-11-07 00:32 | NUR ---
RT AT BEDSIDE PT PLACED ON HFNC 4LPM FOR BIPAP BREAK
--- NOTE | 2018-11-07 01:15 | NUR ---
PT TALKING AND GETTING SOB O2 SATS DROPPING TO MID 80'S PLACED BACK ON BIPAP WITH O2 SATS QUICKLY RETURNING TO 90'S.
--- NOTE | 2018-11-07 03:00 | NUR ---
BIPAP ALARMING PT HAD PULLED AT TUBING AND BROKE APART FROM MASK. PLACED ON HFNC 4LPM REASSESSMENT COMPLETE CPOC
--- NOTE | 2018-11-07 03:30 | NUR ---
PT REQUESTING BIPAP MASK BACK ON RT PLACED BACKON BIPAP
--- NOTE | 2018-11-07 05:00 | NUR ---
PT RESTING QUIETLY WITH EYES CLOSED AT BEDSIDE CPOC
[2018-11-07 06:52] LABS: BASOPHILS 0.1 % (0-2); EOSINOPHILS 0 % (0-7); HEMATOCRIT 29.2 % (42.0-54.0); HEMOGLOBIN 9.3 g/dL (13.5-17.5); IMMATURE GRANULOCYTES 0.4 % (0-5); LYMPHOCYTES 3.2 % (15-50); MCH 33.6 pg (26.0-34.0); MCHC 31.8 g/dL (31.0-37.0); MCV 105.4 fL (80.0-100.0); MEAN PLATELET VOLUME 12.7 fL (7.4-10.4); MONOCYTES 3.9 % (2-11); NEUTROPHILS 92.4 % (40-80); PLATELET COUNT 109 10x3/uL (130-400); RBC 2.77 10x6/uL (4.20-6.10); RDW 18.3 % (11.5-14.5)
[2018-11-07 06:54] LABS: WBC 15.7 10x3/uL (4.8-10.8)
[2018-11-07 07:06] LABS: ANION GAP 16.2 mmol/L (8-16); CALCIUM 7.8 mg/dL (8.5-10.1); CARBON DIOXIDE 26.4 mmol/L (21.0-32.0); CREATININE - SERUM 7.5 mg/dL (0.6-1.3); POTASSIUM - SERUM 5.6 mmol/L (3.5-5.1)
--- NOTE | 2018-11-07 07:16 | NUR ---
SHIFT REPORT RECEIVED. PT AWAKE AND ALERT. ON BIPAP AT 30%. FOLLOWS SIMPLE COMMANDS. SHAKES HEAD NO WHEN ASKED IF HE HAS PAIN. HAS L-SUBCLAVIAN CVL WITH DOBUTAMINE AT 5MCG/KG/MIN AND LEVOPHED AT 11MCG/MIN. PULLED UP AND REPOSITIONED FOR COMFORT. SPOUSE AT BEDSIDE. BED ALARM ON. WILL CONTINUE TO MONITOR.
--- NOTE | 2018-11-07 07:45 | NUR ---
PT TAKEN OFF BIPAP AT THIS TIME. PLACED ON 4L OF 02 VIA HIGH FLOW NC. CONTINUES ON LEVOPHED AND DOBUTAMINE. HR SLIGHTLY TACHYCARDIC IN 102-105. WILL CONTINUE TO MONITOR.
--- NOTE | 2018-11-07 08:45 | NUR ---
AM MEDS GIVEN. PT ANXIOUS. HR 110 SINUS TACHYCARDIA. PLACED BACK ON BIPAP AT 30%. WILL CONTINUE TO MONITOR. SPOUSE AT BEDSIDE.
--- NOTE | 2018-11-07 09:17 | NUR ---
PT REPOSITIONED FOR COMFORT. HR STARTING TO DECREASE. CURRENT HR 101. WILL CONTINUE TO MONITOR.
--- NOTE | 2018-11-07 11:33 | NUR ---
TOOK OFF BIPAP AT THIS TIME. PLACED ON 4L O2 VIA HIGH FLOW NC. HR BACK UP TO 110. WILL CONTINUE TO MONITOR.
--- NOTE | 2018-11-07 11:50 | NUR ---
INCREASED O2 TO 6L HIGH FLOW NC.
--- NOTE | 2018-11-07 12:24 | NUR ---
02 SAT DROPPED DOWN TO 85%. HR 112. CURRENLTY ON DIALYSIS. PLACED BACK ON BIPAP AT 30% AT THIS TIME. SPOUSE AT BEDSIDE. WILL CONTINUE TO MONITOR.
--- NOTE | 2018-11-07 12:56 | NUR ---
LEVOPHED INCREASED FOR DIALYSIS. CURRENT RATE IS 30MCG/KG/MIN. DIALYSIS NURSE INFUSING ALBUMIN AT THIS TIME. WILL CONTINUE TO MONITOR.
--- NOTE | 2018-11-07 14:34 | EC ---
PATIENT:FABIEN DOWNEY DATE OF SERVICE: 10/14/18 SEX: M MEDICAL RECORD: [id number] DATE OF : 36 LOCATION:[place] [id number] AGE OF PATIENT: 78 ADMISSION DATE: 10/14/18 REFERRING PHYSICIAN: INTERPRETING PHYSICIAN: CANDIS CASEY MD ECHOCARDIOGRAM REPORT ECHO CHARGES 5 ECHO LIMITED Date: 11/06/18 CLINICAL DIAGNOSIS: F/U CHECKING EF ECHOCARDIOGRAPHIC MEASUREMENTS (adult normal given) AC root (d.<3.7cm) 0 cm LV Septum d (<1.2 cm> 0 cm Valve Excursion 0 cm LV Septum (systole) 0 cm Left Atria (s.<4.0cm> 0 cm LVPW d(<1.2cm) 0 cm RV (d.<2.3cm) 0 cm LVPW (sytole) 0 cm LV diastole(<5.6CM) 0 cm MV E-F(>70mm/sec) 0 cm LV systole 0 cm LVOT Diameter 0 cm MV exc.(>10mm) 0 cm Est.ejection fraction (50-75%) % DOPPLER: LVIT cm/sec A 00 cm/sec E 0 cm/sec LA 00 cm/sec RVSP 0 mmHg LVOT 0 cm/sec AOP1/2T 0 m/s Asc. Ao 0 cm/sec RVOT 0 cm/sec RA 0 cm/sec PA 0 cm/sec AV Gradient Peak 0 mmHg AV Mean 0 mmHg AV Area 0.6 cm MV Gradient Peak 0 mmHg MV Mean 0 mmHg MV Area 0 cm COMMENTS: [place] Instructor: Kobe DOS SANTOS Dovetailer: 1 Dr. Casey TAPE# PACS Pericardial Effusion N DATE OF SERVICE: PROCEDURE: Limited echocardiogram for ejection fraction. FINDINGS: Left ventricular chamber size is within normal limits. Left ventricular systolic function is improved at 35% to 40%. TRANSINT:[id number] Voice Confirmation ID: [id number] DOCUMENT ID: [id number] ECHOCARDIOGRAM REPORT [id number] SHAYANFABIEN VILLANUEVA CANDIS ALVAREZ MD at 1434 CC: [id number] DICTATION DATE: 11/07/18 0956 PARTY SUPPLY SPECIALIST: 11/07/18 1133 [place] [address]
--- NOTE | 2018-11-07 18:11 | NUR ---
LEVOPHED TITRATED DOWN TO 24 MCG/MIN. PT TOLERATING. VSS
--- NOTE | 2018-11-07 19:49 | NUR ---
PT RECEIVED WITH EYES OPEN. ON HIGH FLOW N/C 5L. TO LEFT SUBCLAVIAN LEVOPHED, DOBUTAMINE, AND VASOPRESSIN. HR TACHYCARDIC. AT BEDSIDE. NO S/S OF DISTRESS. CALL LIGHT IN REACH. WILL CONTINUE TO OBSERVE.
--- NOTE | 2018-11-07 21:31 | NUR ---
PT WITH EYES OPEN. TACHYCARDIC TITRATING DRIPS TOLERATED. MEDICATIONS GIVEN PER MAR. WILL CONTINUE TO OBSERVE.
--- NOTE | 2018-11-07 22:00 | NUR ---
PT SPO2 MAINTAINING 100% HIGH FLOW N/C TITRATED DOWN FROM 5 TO 3LPM, TOLERATING WELL. WILL CONTINUE TO OBSERVE.
--- NOTE | 2018-11-07 23:39 | NUR ---
REASSESSMENT COMPLETED, SEE FLOW SHEET. WILL CONTINUE TO OBSERVE.
[2018-11-08] VITALS (98 sets, daily range): BP systolic 85–133; BP diastolic 42–60
--- NOTE | 2018-11-08 01:40 | NUR ---
PT WITH EYES CLOSED AND CHEST RISING. CONTINUE TACHYCARDIC HR. TITRATING DRIPS TOLERATED. WILL CONTINUE TO OBSERVE.
--- NOTE | 2018-11-08 02:03 | NUR ---
BIPAP APPLIED. HR AND RR TACHY. WILL CONTINUE TO OBSERVE.
[2018-11-08 05:17] LABS: BASOPHILS 0 % (0-2); EOSINOPHILS 0 % (0-7); IMMATURE GRANULOCYTES 0.2 % (0-5); MCH 33.5 pg (26.0-34.0); MEAN PLATELET VOLUME 12.7 fL (7.4-10.4); MONOCYTES 3.3 % (2-11); NEUTROPHILS 93.5 % (40-80); PLATELET COUNT 107 10x3/uL (130-400); RBC 2.69 10x6/uL (4.20-6.10); RDW 19.2 % (11.5-14.5)
[2018-11-08 05:31] LABS: MCV 107.8 fL (80.0-100.0); WBC 9.9 10x3/uL (4.8-10.8)
[2018-11-08 05:41] LABS: ANION GAP 14.5 mmol/L (8-16); CALCIUM 8.2 mg/dL (8.5-10.1); CARBON DIOXIDE 27.2 mmol/L (21.0-32.0); CREATININE - SERUM 5.9 mg/dL (0.6-1.3); POTASSIUM - SERUM 5.7 mmol/L (3.5-5.1)
--- NOTE | 2018-11-08 05:52 | NUR ---
CHG BATH GIVEN. COMPLETE LINEN CHANGE PROVIDED. PT TOLERATED WELL. WILL CONTINUE TO OBSERVE
--- NOTE | 2018-11-08 07:00 | NUR ---
RECEIVED REPORT. PT RESTING IN BED ON BIPAP. VSS ON PRESSORS. WILL CONTINUE TO MONITOR
--- NOTE | 2018-11-08 09:00 | NUR ---
HOB [id number] TO 90 DEGREES AND PT REPOSITIONED TO SIT UP STRAIGHT POSSIBLE. AM MEDS CRUSHED AND GIVEN WITH PUDDING. NEPRO GIVEN TO WASH IT DOWN AND SMALL PT STARTED TO COUGH. WENT TO GRAB MY STETHESCOPE AND THE WASH AT THE PTS BEDSIDE AND HAD THE PTS HEAD DOWN AND WAS GIVING THE PT PURREE FOOD AND THIN LIQUIDS. I INTERVENED AND EXPLAINED TO THE THAT THE PT IS COUGHING AND NEEDS TO SIT STRAIGHT POSSIBLE AND SHE STATED "WELL THIS IS WHAT I HAVE BEEN DOING BECAUSE HE TUCKS HIS CHIN BETTER WHENEVER HE IS LEANING BACK." ASPIRATION PRECAUTIONS AND INTERVENTIONS EXPLAINED TO THE AND I REMOVED ALL FOOD AND DRINKS AT THE PTS BEDSIDE AND SPOKE WITH ESTEBAN CORDOVA WITH ST TO NOTIFIED. STAT XRAY NOTIFIED AND DR UMANA NOTIFIED. PT BREATHING UNLABORED BUT PTS LUNGS COURSE IN BOTH LOBES AND WORSE COMPARED TO AM ASSESSMENT. O2 SAT WNL. DR UMANA ORDERS FOR STAT CHEST CT WITHOUT CONTRAST.
--- NOTE | 2018-11-08 09:30 | NUR ---
WENT DOWN WITH THE PT FOR CT ON PORTABLE MONITORS. BACK IN THE UNIT. PT VERY COURSE AND AUDIBLE LUNG SOUNDS HEARD WITH AND WITHOUT A STETHESCOPE. DEEP SUCTIONED PREFORMED WITH DIAMOND/BROWN SECREATIONS. PT HOOKED TO ICU MONITORS. BREATHING AND LUNG SOUNDS IMPROVED. WILL CONT POC.
--- NOTE | 2018-11-08 13:25 | NUR ---
Nutrition Follow-up: Visit with pt's who states that she just spoke with doctor and plan is to intubate pt. Pt currently on bipap. states that pt has not been eating well. PO intake ~40% average (as recorded). Pt continues on MWF HD. If pt intubated recommend nutrition support within 24hrs. If EN needed recommend TF goal of: Nepro @ 55mL/hr. This will provide: 2376kcal (27kcal/kg) and 107gms PRO (1.2gms/kg). RD Following
--- NOTE | 2018-11-08 13:25 | NUR ---
DR. LOPEZ MADE ROUNDS. SPOKE TO PATIENTS ABOUT NEED FOR INTUBATION. STILL WAITING ON OTHER FAMILY AND DR. UMANA TO ARRIVE.
--- NOTE | 2018-11-08 15:00 | NUR ---
PATIENT INTUBATED AT THIS TIME BY DR. UMANA.
--- NOTE | 2018-11-08 17:00 | NUR ---
DIALYSIS NURSE HERE TO BEGIN DIALYZING.
--- NOTE | 2018-11-08 17:14 | NUR ---
SPOKE TO DR. UMANA ON PHONE. READ BACK ABG'S. ORDERS TO STOP PROPOFOL AND USE FENTANYL ONLY FOR SEDATION.
--- NOTE | 2018-11-08 19:00 | NUR ---
REPORT RECEIVED FROM OFF GOING NURSE. PT IS LAYING IN BED INTUBATED AND SEDATED. DIALYSIS NURSE IS AT BEDSIDE RIGHT NOW PERFORMING DIALYSIS. ATTEMPTED TO DROP OGT AND WAS UNABLE. NO SIGNS OF ACUTE DISTRESS NOTED. WILL CONTINUE TO MONITOR.
--- NOTE | 2018-11-08 21:00 | NUR ---
PT IS LAYING IN BED INTUBATED AND SEDATED. ANOTHER RN ATTEMPTED TO DROP OGT AND WAS UNABLE. PT REPOSITIONED FOR COMFORT. ORAL CARE PERFORMED. NO FURTHER NEEDS NOTED. NO SIGNS OF ACUTE DISTRESS. WILL CONTINUE TO MONITOR.
--- NOTE | 2018-11-08 23:00 | NUR ---
REASSESSMENT COMPLETED, SEE FLOWSHEET FOR DETAILS. PT IS LAYING IN BED INTUBATED AND SEDATED. PT REPOSITIONED FOR COMFORT. ORAL CARE PERFORMED. NO FURTHER NEEDS NOTED AT THIS TIME. NO SIGNS OF ACUTE DISTRESS. WILL CONTINUE TO MONITOR.
[2018-11-09] VITALS (88 sets, daily range): BP systolic 78–140; BP diastolic 39–61
--- NOTE | 2018-11-09 01:00 | NUR ---
PT IS LAYING IN BED INTUBATED AND SEDATED. PT REPOSITIONED FOR COMFORT. ORAL CARE PERFORMED. NO SIGNS OF ACUTE DISTRESS. WILL CONTINUE TO MONITOR.
--- NOTE | 2018-11-09 03:00 | NUR ---
REASSESSMENT COMPLETED, SEE FLOWSHEET FOR DETAILS. PT IS LAYING IN BED INTUBATED AND SEDATED. PT REPOSITIONED FOR COMFORT. ORAL CARE PERFORMED. NO SIGNS OF ACUTE DISTRESS. WILL CONTINUE TO MONITOR.
[2018-11-09 04:46] LABS: BASOPHILS 0 % (0-2); EOSINOPHILS 0 % (0-7); HEMATOCRIT 29.1 % (42.0-54.0); HEMOGLOBIN 9.1 g/dL (13.5-17.5); IMMATURE GRANULOCYTES 0.3 % (0-5); LYMPHOCYTES 2.4 % (15-50); MCH 33.8 pg (26.0-34.0); MCHC 31.3 g/dL (31.0-37.0); MCV 108.2 fL (80.0-100.0); MONOCYTES 1.8 % (2-11); NEUTROPHILS 95.5 % (40-80); PLATELET COUNT 92 10x3/uL (130-400); RBC 2.69 10x6/uL (4.20-6.10); RDW 19.3 % (11.5-14.5); WBC 11.1 10x3/uL (4.8-10.8)
[2018-11-09 04:50] LABS: ANION GAP 15.5 mmol/L (8-16); CARBON DIOXIDE 28.5 mmol/L (21.0-32.0); CREATININE - SERUM 4.8 mg/dL (0.6-1.3)
--- NOTE | 2018-11-09 05:00 | NUR ---
PT IS LAYING IN BED INTUBATED AND SEDATED. PT GIVEN CHG BATH AND COMPLETE LINEN CHANGE AT THIS TIME. PT REPOSITIONED FOR COMFORT. ORAL CARE PERFORMED. NO SIGNS OF ACUTE DISTRESS. WILL CONTINUE TO MONITOR.
--- NOTE | 2018-11-09 09:47 | NUR ---
Nutrition Follow-up: Pt intubated 11/08. Noted unable to place OGT. Pt not eating very well prior to intubation. Diet: NPO Wt: 177# Last BM: 10/28 per chart Labs noted: Glu 213, K+ 5.0, Ca 8.0 Meds noted: Miralax, Colace, Solumedrol, Humulin If able to place OGT/NGT, rec initiate TF: Nepro at goal rate of 55 mL/hr. If unable to initiate TF, may consider short-term PN or Procalamine. RD following.
--- NOTE | 2018-11-09 11:30 | NUR ---
DIALYSIS NURSE HERE TO BEGIN DIALYSIS. DR. UMANA ALSO MADE ROUNDS
--- NOTE | 2018-11-09 12:01 | NUR ---
PATIENT DIALYZING RIGHT NOW. MAP IS 51. PRESSORS ARE MAXED. WILL MONITOR CLOSESLY. WILL NOTIFY PHYSICIAN IF BP DOES NOT IMPROVE.
--- NOTE | 2018-11-09 13:05 | NUR ---
SPOKE TO DR. KENDRICK AND HIS BANK ANALYST ABOUT PATIENTS HYPOTENSION SINCE DIALYSIS STARTED WITH LEVOPHED AND VASOPRESSIN MAXED OUT. ORDERS TO ONLY REMOVE 2 LITERS OF FLUID INSTEAD OF 3. ALBUMIN IS BEING ADMINISERED AND NEOSYNEPHRINE ORDERED IF NECESSARY FOR BP.
--- NOTE | 2018-11-09 13:53 | NUR ---
16 Fr. NGT INSERTED THROUGH RIGHT NARE. VERIFIED PLACEMENT WITH AUSCULTATION. ORDERING CHEST XRAY WELL TO VERIFY. STILL DIALYZING. BP HOLDING STABLE FOR NOW. WILL CONTINUE TO MONITOR
--- NOTE | 2018-11-09 14:39 | NUR ---
XRAY SHOWED NGT COILED BACK UP ESOPHAGUS BEFORE EVER REACHING STOMACH. ATTEMPTED TO REINSERT BEFORE X-RAY LEFT. UNSUCCESSFUL.
--- NOTE | 2018-11-09 15:04 | NUR ---
DIALYSIS COMPLETED. VSS.
--- NOTE | 2018-11-09 15:05 | NUR ---
NOTIFIED DR. UMANA OF FAILURE TO INSERT NG/OGT. ORDERS TO CONSULT IR TO INSERT
--- NOTE | 2018-11-09 15:10 | NUR ---
PAN KRAUSE PLACED OGT. VERIFIED PLACEMENT WITH XRAY AND AUSCULTATION
--- NOTE | 2018-11-09 15:13 | MORECARE ---
CASE MANAGEMENT DISCHARGE SUMMARY PATIENT: FABIEN DOWNEY UNIT: [id number] ADM DATE: 10/14/18 AGE: 78 : 38 SEX: M ROOM/BED: D[facility] AUTHOR: HERMILO RIZO PHYSICIAN: REFERRING PHYSICIAN: ANIYA WINCHESTER MD DATE OF SERVICE: 11/09/18 Discharge Plan Patient Name: FABIEN DOWNEY Facility: [facility]:[place] : 1940 Planned Disposition: Home Anticipated Discharge Date: Discharge Date: Expected LOS: Initial Reviewer: [email or web address] Initial Review Date: 10/17/2018 Generated: 11/09/18 4:13 pm DCP- Discharge Planning Updated by [email or web address]: Mikayla Magaña on 11/09/18 2:[address] CM spoke with Dr. Winchester regarding potential d/c planning. Dr. Winchester stated until patient is able to get off pressers then [facility] will not accept patient. Dr. Winchester stated that he has a poor prognosis and he has spoke with family and at this time they are not considering DNR status. CM will continue to follow and assist as needed with discharge planning / needs. DCP- Discharge Planning Updated by [id number]: Mikayla Magaña on 10/17/18 2:[address] Patient Name: FABIEN DOWNEY Admission Status: ER Accout number: [id number] Admission Date: 10-14-2018 : 1940 Admission Diagnosis: Attending: Aniya Winchester Current LOS: 3 Anticipated DC Date: Planned Disposition: Home Primary Insurance: [facility] [employer] SOLUTIONS Discharge Planning Comments: CM met with patient at bedside after explaining CM role and obtaining verbal consent. Patient lives at home with his Rosana where he is independent with his care and plans to return there upon discharge. Patient feels this would be a safe discharge. CM discussed availability / needs of home health and medical equipment. Patient denies any discharge needs at this time. Patient states that he has House Calls. Patient has [facility] MWF @1100 @ [facility] Patient states he will have his family drive him home upon discharge. CM will continue to follow and assist as needed with discharge planning / needs. Destination Coordinator: Mikayla Magaña DCPIA - Discharge Planning Initial Assessment Updated by [email or web address]: Mikayla Magaña on 10/17/18 3:32 pm * Is the patient Alert and Oriented? Yes * How many steps to enter\exit or inside your home? * PCP Pee * Pharmacy [facility] * Preadmission Environment Home with Family * ADLs Independent * Other Equipment WALKER, W/C , ROLLING WALKER * List name and contact numbers for known caregivers / representatives who currently or will assist patient after discharge: ROSANA DOWNEY - - [phone] * Verbal permission to speak to the caregivers and representatives has been obtained from the patient. Yes * Please name any agencies selected above. [facility] * Additional services required to return to the preadmission environment? No * Can the patient safely return to the preadmission environment? Yes * Has this patient been hospitalized within the prior 30 days at any hospital? No Last DP export: 10/17/18 2:44 pm Patient Name: FABIEN DOWNEY Page [id number] at 1513 All edits/amendments must be made on the electronic document DICTATION DATE: 11/09/181512 BACKEND JAVA DEVELOPER: BRONWYN 11/09/181512 RPT#: [id number] DC DATE: STATUS: ADM IN [facility] [address] [place] [address] END OF REPORT
--- NOTE | 2018-11-09 15:15 | NUR ---
16 CZECH OG TUBE PLACED. PLACEMENT CHECK PER AUSCULATION AND ASPIRATION AND XRAY ORDERED PER DR STERLING TO CHECK PLACEMENT.
--- NOTE | 2018-11-09 17:19 | NUR ---
REPORT GIVEN TO PAN [place]. LEVOPHED TITRATED DOWN TO 15MCG/MIN SINCE DIALYSIS ENDED. SEDATED ON VENTILATOR WITH FENTANYL AT 250 MCG/HR.
--- NOTE | 2018-11-09 17:30 | NUR ---
REPORT RECEIVED FROM CRESENCIO PERLA. PT INTUBATED AND SEDATED. SPOUSE AT BEDSIDE. OGT IN PLACE. WILL CONTINUE TO MONITOR.
--- NOTE | 2018-11-09 18:35 | NUR ---
NEPRO INITIATED AT THIS TIME AT 10ML/HR WITH 20ML H2O FLUSH Q 2HR. OGT TUBE PLACEMENT VERIFIED BY AUSCULTATION. NO FURTHER NEEDS. WILL CONTINUE TO MONITOR.
--- NOTE | 2018-11-09 19:00 | NUR ---
REPORT RECEIVED FROM OFF GOING NURSE. PT IS LAYING IN BED INTUBATED AND SEDATED. PT REPOSITIONED FOR COMFORT. HEELS ARE ELEVATED OFF OF BED. ORAL CARE PERFORMED. NO FURTHER NEEDS NOTED AT THIS TIME. NO SIGNS OF ACUTE DISTRESS. WILL CONTINUE TO MONITOR.
--- NOTE | 2018-11-09 21:00 | NUR ---
PT IS LAYING IN BED INTUBATED AND SEDATED AT THIS TIME. PM MEDICATIONS GIVEN, SEE EMAR FOR DETIALS. PT REPOSITIONED FOR COMFORT. ORAL CARE PERFORMED. NO FURTHER NEEDS NOTED. NO SIGNS OF ACUTE DISTRESS. WILL CONTINUE TO MONITOR.
--- NOTE | 2018-11-09 23:00 | NUR ---
REASSESSMENT COMPLETED, SEE FLOWSHEET FOR DETAILS. PT IS IN BED INTUBATED AND SEDATED. PT REPOSITIONED FOR COMFORT. ORAL CARE PERFORMED. NO FURTHER NEEDS NOTED. NO SIGNS OF ACUTE DISTRESS. WILL CONTINUE TO MONITOR.
[2018-11-10] VITALS (92 sets, daily range): BP systolic 81–116; BP diastolic 35–53
--- NOTE | 2018-11-10 01:00 | NUR ---
PT IS RESTING IN BED INTUBATED AND SEDATED. PT REPOSITIONED FOR COMFORT. ORAL CARE PERFORMED. NO FURTHER NEEDS NOTED AT THIS TIME. NO SIGNS OF ACUTE DISTRESS. WILL CONTINUE TO MONITOR.
--- NOTE | 2018-11-10 03:00 | NUR ---
REASSESSMENT COMPLETED, SEE FLOWSHEET FOR DETAILS. PT IS LAYING IN BED INTUBATED AND SEDATED. PT REPOSITIONED FOR COMFORT. ORAL CARE PERFORMED. NO FURTHER NEEDS NOTED. NO SIGNS OF ACUTE DISTRESS. WILL CONTINUE TO MONITOR.
[2018-11-10 04:41] LABS: BASOPHILS 0 % (0-2); EOSINOPHILS 0 % (0-7); HEMATOCRIT 27.6 % (42.0-54.0); HEMOGLOBIN 8.5 g/dL (13.5-17.5); IMMATURE GRANULOCYTES 0.3 % (0-5); LYMPHOCYTES 1.4 % (15-50); MCH 33.5 pg (26.0-34.0); MCHC 30.8 g/dL (31.0-37.0); MCV 108.7 fL (80.0-100.0); MEAN PLATELET VOLUME 11.7 fL (7.4-10.4); MONOCYTES 2.5 % (2-11); NEUTROPHILS 95.8 % (40-80); PLATELET COUNT 75 10x3/uL (130-400); RBC 2.54 10x6/uL (4.20-6.10); RDW 18.9 % (11.5-14.5); WBC 10.6 10x3/uL (4.8-10.8)
[2018-11-10 04:51] LABS: ANION GAP 13.6 mmol/L (8-16); CALCIUM 7.5 mg/dL (8.5-10.1); CARBON DIOXIDE 28.5 mmol/L (21.0-32.0); CREATININE - SERUM 4.3 mg/dL (0.6-1.3); POTASSIUM - SERUM 5.1 mmol/L (3.5-5.1)
--- NOTE | 2018-11-10 05:00 | NUR ---
PT IS LAYING IN BED INTUBATED AND SEDATED. PT WAS INCONTINENT OF A LARGE BLOODY BM. STOOL SAMPLE ACQUIRED, POSITIVE FOR OCCULT BLOOD. COMPLETED CHG BATH AND LINEN CHANGE. PAGED DR LOPEZ REGARDING LOSS OF BLOOD AND SLIGHT DECREASE IN H/H AND PLT. 1 UNIT OF PLTS ORDERED. NO FURTHER NEEDS NOTED. WILL CONTINUE TO MONITOR.
[2018-11-10 05:12] LABS: PLATELET ESTIMATE DECREASED
--- NOTE | 2018-11-10 07:15 | NUR ---
SHIFT REPORT RECEIVED. PT INTUBATED AND SEDATED. VENT SETTING A/C, R-16, TV500, FIO2 40%, PEEP 8. ETT SIZE 8, 24 AT LIP RIGHT. OGT IN PLACE WITH NEPRO AT 20CC/HR WITH 20CC H2O FLUSH Q 2HR. RESIDUAL 65ML. LEFT SUBCLAVIAN CVL DRESSING C/D/I. SEE IV FLOWSHEET FOR FLUIDS. MODERATE AMOUNT OF DARK MAROON LIQUID STOOL NOTED. PERICARE AND PARTIAL LINEN CHANGE PROVIDED. REPOSITIONED FOR COMFORT. WILL CONTINUE TO MONITOR.
--- NOTE | 2018-11-10 08:45 | NUR ---
UNIT OF PLATELETS INITIATED PER ORDERS. BLOOD CONSENT FORM FOUND IN CHART. WILL CONTINUE TO MONITOR.
--- NOTE | 2018-11-10 09:50 | NUR ---
UNIT OF PLATELETS INFUSING. MODERATE AMOUNT OF BROWN/BLOOD TINGE LIQUID STOOL NOTED AT THIS TIME. PERICARE AND PARTIAL LINEN CHANGE PROVIDED. REPOSITIONED FOR COMFORT. WILL CONTINUE TO MONITOR.
--- NOTE | 2018-11-10 11:00 | NUR ---
PT TURNED AND REPOSITIONED FOR COMFORT, SEDATION TURNED OFF FOR CPAP TRIALS, MONITORS ON AND WORKING, VITALS STABLE. FAMILY AT BEDSIDE, UPDATE PROVIDED, SEE FLOW SHEET FOR FURTHER DETAILS. WILL CONTINUE TO OBSERVE.
--- NOTE | 2018-11-10 13:00 | NUR ---
SEDATION TURNED BACK ON ONCE CPAP TRIAL WAS FINISHED. PT CLEANED FROM LARGE RUST COLORED STOOL, PT TURNED AND REPOSITIONED AT THIS TIME. MONITORS ON AND WORKING VITALS STABLE. WILL CONTINUE TO OBSERVE.
--- NOTE | 2018-11-10 15:00 | NUR ---
PT TURNED AND REPOSITIONED FOR COMFORT, MONITORS ON AND WORKING, SEE FLOW SHEET FOR FURTHER DETAILS. WILL CONTINUE TO OBSERVE.
--- NOTE | 2018-11-10 17:00 | NUR ---
PT CLEANED FROM LARGE RUST COLORED STOOL. PT TURNED AND REPOSITIONED AT THIS TIME. ORAL CARE DONE WELL. MONITORS ON AND WORKING, FAMILY AT BEDSIDE, UPDATE PROVIDED. WILL CONTINUE TO OBSERVE.
--- NOTE | 2018-11-10 19:00 | NUR ---
REPORT RECEIVED FROM OFF GOING NURSE. PT IS IN BED INTUBATED AND SEDATED. INITIAL ASSESSMENT COMPLETED, SEE FLOWSHEET FOR DETAILS. PT REPOSITIONED FOR COMFORT. ORAL CARE PERFORMED. NO SIGNS OF ACUTE DISTRESS. WILL CONTINUE TO MONITOR.
--- NOTE | 2018-11-10 21:00 | NUR ---
PT IS LAYING IN BED INTUBATED AND SEDATED. PT HAD A LARGE DARK RED LIQUID STOOL AT THIS TIME. PARTIAL LINEN CHANGE COMPLETED. NO FURTHER NEEDS NOTED. NO SIGNS OF ACUTE DISTRESS. WILL CONTINUE TO MONITOR.
[2018-11-11] VITALS (97 sets, daily range): BP systolic 72–165; BP diastolic 32–130
--- NOTE | 2018-11-11 01:00 | NUR ---
PT IS LAYING IN BED INTUBATED AND SEDATED. PT REPOSITIONED FOR COMFORT. ORAL CARE PERFORMED. NO FURTHER NEEDS NOTED AT THIS TIME. NO SIGNS OF ACUTE DISTRESS. WILL CONTINUE TO MONITOR.
[2018-11-11 02:57] LABS: BASOPHILS 0 % (0-2); EOSINOPHILS 0 % (0-7); HEMATOCRIT 23.9 % (42.0-54.0); HEMOGLOBIN 7.6 g/dL (13.5-17.5); IMMATURE GRANULOCYTES 0.3 % (0-5); MCH 34.1 pg (26.0-34.0); MCHC 31.8 g/dL (31.0-37.0); MCV 107.2 fL (80.0-100.0); MEAN PLATELET VOLUME 12.4 fL (7.4-10.4); MONOCYTES 2.1 % (2-11); NEUTROPHILS 95.6 % (40-80); PLATELET COUNT 87 10x3/uL (130-400); RBC 2.23 10x6/uL (4.20-6.10); RDW 18.4 % (11.5-14.5)
[2018-11-11 03:06] LABS: WBC 7.6 10x3/uL (4.8-10.8)
[2018-11-11 03:10] LABS: ANION GAP 11.4 mmol/L (8-16); CALCIUM 7.3 mg/dL (8.5-10.1); CARBON DIOXIDE 27.2 mmol/L (21.0-32.0); POTASSIUM - SERUM 4.6 mmol/L (3.5-5.1); VANCOMYCIN - RANDOM 13.8 ug/mL (10.0-20.0)
[2018-11-11 03:12] LABS: CREATININE - SERUM 5.4 mg/dL (0.6-1.3)
--- NOTE | 2018-11-11 05:00 | NUR ---
PT IS IN BED INTUBATED AND SEDATED. PT REPOSITIONED FOR COMFORT. ORAL CARE PERFORMED. NO FURTHER NEEDS NOTED. NO SIGNS OF ACUTE DISTRESS. WILL CONTINUE TO MONITOR.
--- NOTE | 2018-11-11 11:10 | NUR ---
Nutrition Follow-up: RN reports TF off 2/2 GI bleed. Per chart, noted large bloody BM. Wt: 176# Labs noted: Glu 220, Na 132, Ca 7.3 Meds noted: Solumedrol, Humulin RD available to assist with nutrition support. Will monitor.
[2018-11-11 12:23] LABS: HEMATOCRIT 29.5 % (42.0-54.0); HEMOGLOBIN 9.3 g/dL (13.5-17.5)
--- NOTE | 2018-11-11 12:29 | NUR ---
07-DR COWART NOTIFIED OF GI BLEED-NADIA KIRKLAND STOOLS-CURRENT HGB AND HCT-ORDER RECIEVED AND NOTED-DIALYSIS NURSE NOTIFIED OF IMPENDING BLOOD UNIT PRIOR T START OF DIALYSIS- 829-DR LOPEZ AT [facility]-STATUS REPORT GIVEN ORDER RECIEVED 1030-DR UMANA AT [facility] -STATUS REPORT GIVEN-ORDERS RECIEVED AND NOTED [facility] AT [facility]- 1200-HGB/HCT DRAWN AND SENT STAT 1210 [id number]-DIALYSIS STOPPED AND BLOOD RETURNED CALL PLACED TO DR COWART
--- NOTE | 2018-11-11 15:35 | NUR ---
REPORT RECEIVED FROM PAN WATKINS. PT HERE FROM CT.
--- NOTE | 2018-11-11 16:14 | NUR ---
PT ON 1ST STEP OVERLAY. VSS. DRIPS TITRATED PER ORDERS AND PARAMETERS. DOCUMENTED IN IV FLOWSHEET. PT ANURIC. BREAKDOWN ON BUTTOCK. HAD INCONTINENT EPISODE OF DIARRHEA. PT CLEANED AND BARRIER CREAM APPLIED. PT TURNED TO LEFT SIDE. ON VENT PER RT SETTINGS. OGT. TUBE FEEDINGS HELD PER GI BLEED. WILL CONTINUE TO MONITOR.
--- NOTE | 2018-11-11 17:33 | NUR ---
1245-DR KENDRICK AT BEDSIDE-STATUS REPORT GIVEN TO SAME-HGB HCT RESULT GIVEN-AGREED TO CT OF ABDOMEN AND PELVIS-LIQUID CONTRAST VIA OGT GIVEN AND CLAMPED-TUBE FEEDING REMAINS OFF- AT BEDSIDE AND QUESTIONS ANSWERED 1400-PT TO CT SCAN ON PORTABLE VENTILATOR AND MONITOR-NO CHANGE LEVPHED AT 5MCG/KG DOBUTREX AT 5MCG-VASOPRESSIN AT 0.04 UNITS /6ML/H--VIA BED BY RT RN AND RAD. 1500-TRANSFERED TO ICU 2306-PLACED TO MONITOR-MARPASTOR STOOL
--- NOTE | 2018-11-11 17:45 | NUR ---
AT BEDSIDE. UPDATED ON PT STATUS. VERBALIZED UNDERSTANDING. VSS. WILL CONTINUE TO MONITOR.
--- NOTE | 2018-11-11 18:22 | NUR ---
PT IN UNCONTROLLED AFIB. DR ANN.
--- NOTE | 2018-11-11 18:59 | NUR ---
INCONTINENT BM. DARK RED. PT CLEANED UP AND LINENS CHANGED.
--- NOTE | 2018-11-11 19:00 | NUR ---
SHIFT ASSESSMENT COMPLETE. PT IS ABLE TO FOLLOW COMMANDS, BUT DOES NOT MAKE EYE CONTACT. PERRLA, 2 MM, BRISK REACTION TO LIGHT. ETT/OGT SECURED. ETT SIZE 8.0, 27 CM AT THE LIP. VENT SETTINGS: A/C RATE OF 12, TIDAL VOLUME 500, FIO2 40%, PEEP 8.0, O2 SAT 98-100%. OGT CLAMPED, 0 RESIDUAL. LT SUBCLAVIAN CVL INFUSING LEVOPHED @ 5 MCG/MIN, DOBUTAMINE @ 5 MCG/KG/MIN, VASOPRESSIN 0.04 UN/MIN, CARDIZEM @ 10 MG/HR, NS @ KVO, FENTANYL @ 250 MCG/HR. R ARM RESERVE, AV FISTULA IN FA WITH DRESSING INTACT, BRUIT PRESENT, NO THRILL. +2 PITTING EDEMA IN UPPER EXT. B/L WRIST RESTRAINTS IN PLACE. PT IS ANURIC. B/L TOES ARE CYANOTIC, CAP REFILL > 3 SEC. BP LOW, TITRATING LEVOPHED PER ORDERS. NO FURTHER FINDINGS AT THIS TIME. WILL CONT WITH POC.
--- NOTE | 2018-11-11 21:00 | NUR ---
AT BEDSIDE, UPDATED HER ON PT CONDITION. FSBS 291, 6 UN HUMALIN ADMIN. CONT TO TITRATE LEVOPHED, SEE IV GTT FLOWSHEET FOR FURTHER DETAILS. WILL CONT WITH POC.
--- NOTE | 2018-11-11 23:00 | NUR ---
REASSESSMENT COMPLETE. PARTIAL LINEN CHANGE PROVIDED. SMALL BLOODY STOOL NOTED. SKIN TEAR ON COCCYX, BARRIER CREAM APPLIED TO EXCORIATED AREA. REPOSITIONED FOR COMFORT. SCDS PLACED ON PT. ORAL CARE PROVIDED. VSS. WILL CONT TO MONITOR.
--- NOTE | 2018-11-11 23:57 | NUR ---
NSR SHOWING ON MONITOR, HR 71.
[2018-11-12] VITALS (84 sets, daily range): BP systolic 85–128; BP diastolic 32–85
--- NOTE | 2018-11-12 01:00 | NUR ---
REPOSITIONED FOR COMFORT, ORAL CARE PROVIDED. OGT PLACEMENT CHECKED VIA AUSCULTATION, 0 RESIDUAL. VSS. WILL CONT TO TITRATE LEVOPHED TOLERATED. WILL CONT WITH POC.
--- NOTE | 2018-11-12 03:00 | NUR ---
REASSESSMENT COMPLETE. MIXED 40 UN VASOPRESSIN IN 100CC BAG NS, VARIFIED WITH SHAYNE JENNINGS RN. ORANGE STICKER PLACED ON BACK OF BAG. RT AT BEDSIDE, SMALL CUFF LEAK. REPOSITIONED FOR COMFORT, ORAL CARE PROVIDED. NSR SHOWING ON MONITOR. NO FURTHER FINDINGS AT THIS TIME.
--- NOTE | 2018-11-12 05:00 | NUR ---
CHG BATH, COMPLETE LINEN CHANGE AND ORAL CARE PROVIDED. BARRIER CREAM APPLIED TO BUTTOCKS AND COCCYX AREA. MEPILEX APPLIED TO LOWER BACK, SKIN TEAR NOTED. PT TOLERATED WELL. WILL CONT WITH POC.
[2018-11-12 05:36] LABS: BASOPHILS 0 % (0-2); EOSINOPHILS 0 % (0-7); HEMATOCRIT 25.6 % (42.0-54.0); HEMOGLOBIN 8.1 g/dL (13.5-17.5); IMMATURE GRANULOCYTES 0.3 % (0-5); LYMPHOCYTES 2.5 % (15-50); MCH 31.4 pg (26.0-34.0); MCHC 31.6 g/dL (31.0-37.0); MEAN PLATELET VOLUME 11.9 fL (7.4-10.4); MONOCYTES 1.6 % (2-11); NEUTROPHILS 95.6 % (40-80); RBC 2.58 10x6/uL (4.20-6.10); RDW 24.6 % (11.5-14.5); WBC 7.6 10x3/uL (4.8-10.8)
[2018-11-12 05:41] LABS: MCV 99.2 fL (80.0-100.0); PLATELET COUNT 56 10x3/uL (130-400)
[2018-11-12 05:43] LABS: PLATELET ESTIMATE DECREASED
[2018-11-12 06:05] LABS: ANION GAP 17.2 mmol/L (8-16); CALCIUM 7.4 mg/dL (8.5-10.1); CARBON DIOXIDE 25.8 mmol/L (21.0-32.0); CREATININE - SERUM 5.1 mg/dL (0.6-1.3); VANCOMYCIN - RANDOM 19.9 ug/mL (10.0-20.0)
--- NOTE | 2018-11-12 07:20 | NUR ---
AWAKES TO STIMULATION. OBEYS COMMANDS. SKIN COOL AND DRY. ETT SECURE TO VENT BILATERAL LUNG SOUNDS EQUAL. ABD SOFT. OG CLAMPED. LEFT SUBCLAVIAN TRIPLE LUMEN CATH INFUSING WITH LEVOPHED AT 13 MCG/MIN. DOBUTAMINE 5 MCG/KG/MIN. VASO AT 0.04UNITS/MIN. FENTANYL 250 MCG/H. CARDIZEM 10MG /HOUR. NS KVO FOR IVPB. RIGHT ARM FISTULA DRESSING INTACT. RIGHT ARM WEEPING CLEAR YELLOW FLUID. HEAD OF BED ELEVATED 30 DEGREES. NO DISTRESS. MONITOR SR.
--- NOTE | 2018-11-12 09:10 | NUR ---
DR. UMANA HERE REVIEWED PO MEDS STATES OK TO GIVEN SYNTHROID PER OG. NO NEED TO GIVEN THE OTHER MEDS AT THIS TIME. DUE TO LOWER GI BLEED. BLODDY STOOL DURING LAST SHIFT.
--- NOTE | 2018-11-12 09:21 | NUR ---
DR. LOPEZ HERE. ORDERS RECEIVED TO GIVEN UNIT OF PLATELETS.
--- NOTE | 2018-11-12 09:53 | NUR ---
PLATELETS INFUSING NO REACTION NOTED. HERE UPDATE GIVEN. DR. KENDRICK HERE. TALKED WITH
--- NOTE | 2018-11-12 10:28 | NUR ---
PLATELETS COMPLETED TOLERATED WELL.
--- NOTE | 2018-11-12 12:30 | NUR ---
RESTING COMFORTABLY NO DISTRESS. HEAD OF BED ELEVATED 30 DEGREES. HERE UPDATE GIVEN
[2018-11-12 13:24] LABS: HEMATOCRIT 22.7 % (42.0-54.0)
[2018-11-12 13:25] LABS: HEMOGLOBIN 7.2 g/dL (13.5-17.5)
[2018-11-12 13:35] LABS: INR 1.84 (0.85-1.17); PROTIME 20.6 SECONDS (11.6-15.0)
[2018-11-12 13:37] LABS: APTT 92.1 SECONDS (22.8-39.4)
--- NOTE | 2018-11-12 13:50 | NUR ---
DR. KENDRICK NOTIFIED OF ALL LAB RESULTS. ORDERS FOR ONE UNIT OF BLOOD TO BE GIVEN RECEIVED.
--- NOTE | 2018-11-12 14:30 | NUR ---
UNIT OF BLOOD INFUSING WITHOUT REACTION. NO DISTRESS. RESTING COMFORTABLY. WEANING LEVOPHED. FENTANLY DECREASED TO 200 MCG/H.
--- NOTE | 2018-11-12 15:42 | NUR ---
RESTING COMFORTABLY NO DISTRESS. BILATERAL LUNG SOUNDS EQUAL. LEVOPHED AT 8 MCG/MIN. BLOOD INFUSING WITHOUT REACTION.
--- NOTE | 2018-11-12 16:30 | NUR ---
CONSENTS FOR THORACENTSIS TOMORROW ALL QUESTIONS ANSWERED. PATIENT RESTING COMFORTABLY. NO REACTION TO BLOOD INFUSING. STILL WEANING LEVOPHED. FENTANYL TURNED DOWN TO 200 MCG/H. CARDIZEM DECREASED PER DR. UMAAN ORDERS. THIS AM TO 5 MG OF CARDIZEM AN HOUR. NOW TO 2.5 MG HOUR. PATIENT TOLERATING WELL.
--- NOTE | 2018-11-12 17:30 | NUR ---
DARK RED LIQUID STOOL MODERATE AMOUNT. PERICARE DONE. EXCORIATION NOTED BETWEEN HIS LEGS, AND BUTTOCK.
--- NOTE | 2018-11-12 19:00 | NUR ---
SHIFT ASSESSMENT COMPLETE. PT IS SEDATED ON VENT. HE OPENS HIS EYES AND HE IS ABLE TO FOLLOW COMMANDS, HE DOES NOT MAKE EYE CONTACT. PERRLA, 2 MM, BRISK REACTION TO LIGHT. ETT/OGT SECURED. ETT SIZE 8.0, 27 CM LIP. VENT SETTINGS: A/C RATE OF 16, TIDAL VOLUME 500, PEEP 8.0, FIO2 40%, O2 SAT 100%. OGT CLAMPED, PLACEMENT CHECKED VIA AUSCULTATION. COARSE LUNG SOUNDS HEARD BILAT THROUGHOUT ALL LOBES. S1S2 AUDIBLE, HR 73 NSR SHOWING ON MONITOR. LT SUBCLAVIAN CVL INFUSING LEVOPHED @ 2 MCG/MIN, DOBUTAMINE @ 5 MCG/KG/MIN, VASOPRESSIN @ 0.04 UN/MIN, CARDIZEM @ 2.5 MG/HR, NS @ KVO, AND FENTANYL @ 200 MCG/HR. ABD SOFT, BS ACTIVE X4. BLOODY STOOL NOTED, PARTIAL LINEN CHANGE PROVIDED. R ARM RESERVE, R AV FITULA WEEPING, REINFORCED DRESSING, BRUIT PRESENT. SCDS ON AND FUNCTIONING. SEE SKIN ASSESSMENT FLOWSHEET FOR FURTHER DETAILS. REPOSITIONED FOR COMFORT. VSS. NO FURTHER FINDINGS AT THIS TIME. WILL CONT WITH POC.
--- NOTE | 2018-11-12 19:53 | NUR ---
LEVOPHED TITRATED OFF.
--- NOTE | 2018-11-12 20:00 | NUR ---
REMOVED L & R WRIST RESTRAINTS, SKIN WNL.
--- NOTE | 2018-11-12 21:00 | NUR ---
FAMILY AT BEDSIDE. PROVIDED EDUCATION ON THE MEDICATIONS THAT THE PATIENT IS RECEIVING. NO FURTHER QUESTIONS AT THIS TIME. VSS. REPOSITIONED FOR COMFORT, ORAL CARE PROVIDED. WILL CONT WITH POC.
--- NOTE | 2018-11-12 23:00 | NUR ---
REASSESSMENT COMPLETE. PT HAD LARGE RUST COLORED STOOL. BARRIER CREAM APPLIED TO EXCORIATED AREAS. NO FURTHER CHANGES IN PT CONDITION, SEE FLOWSHEET FOR DETAILS. VSS. ORAL CARE PROVIDED. REPOSITIONED FOR COMFORT.
[2018-11-13] VITALS (18 sets, daily range): BP systolic 78–104; BP diastolic 32–59
--- NOTE | 2018-11-13 01:00 | NUR ---
REPOSITIONED FOR COMFORT. RT AT BEDSIDE PROVIDING ORAL CARE. 0 RESIDUAL FROM OGT.
--- NOTE | 2018-11-13 03:00 | NUR ---
REASSESSMENT COMPLETE. NO CHANGES IN PT CONDITION, VSS. SEE FLOWSHEET FOR FURTHER DETAILS. WILL CONT WITH POC.
--- NOTE | 2018-11-13 05:00 | NUR ---
REPOSITIONED FOR COMFORT. ORAL CARE AND HUGHES CARE PROVIDED. VSS. NO CHANGES IN PT CONDITION.
[2018-11-13 06:15] LABS: ANION GAP 19.5 mmol/L (8-16); CALCIUM 7.2 mg/dL (8.5-10.1); CARBON DIOXIDE 23.8 mmol/L (21.0-32.0); CREATININE - SERUM 6.1 mg/dL (0.6-1.3); POTASSIUM - SERUM 5.3 mmol/L (3.5-5.1); VANCOMYCIN - RANDOM 18.2 ug/mL (10.0-20.0)
[2018-11-13 06:31] LABS: INR 1.92 (0.85-1.17); PROTIME 21.3 SECONDS (11.6-15.0)
[2018-11-13 06:33] LABS: APTT 108.3 SECONDS (22.8-39.4)
[2018-11-13 06:59] LABS: BASOPHILS 0.2 % (0-2); EOSINOPHILS 0 % (0-7); HEMATOCRIT 23.8 % (42.0-54.0); HEMOGLOBIN 7.7 g/dL (13.5-17.5); IMMATURE GRANULOCYTES 0.4 % (0-5); LYMPHOCYTES 4.4 % (15-50); MCH 30.9 pg (26.0-34.0); MCHC 32.4 g/dL (31.0-37.0); MEAN PLATELET VOLUME 11.6 fL (7.4-10.4); MONOCYTES 2.7 % (2-11); NEUTROPHILS 92.3 % (40-80); RBC 2.49 10x6/uL (4.20-6.10); RDW 22.6 % (11.5-14.5)
[2018-11-13 07:01] LABS: MCV 95.6 fL (80.0-100.0); WBC 4.5 10x3/uL (4.8-10.8)
[2018-11-13 07:02] LABS: PLATELET COUNT 45 10x3/uL (130-400)
[2018-11-13 07:18] LABS: PLATELET ESTIMATE DECREASED
--- NOTE | 2018-11-13 07:30 | NUR ---
OPENS EYES TO VERBAL SITMULI. SQUEEZES HANDS ON REQUEST. BILATERAL LUNG SOUNDS EQUAL. INCREASE IN LUNG CONGESTION NOTED. SUCTIONED ETT NO SECRETIONS NOTED. RIGHT SUBCLAVIAN INFUSING WITH VASOPRESSIN AT 0.04UNITS/MIN. DOBUTAMINE AT 5 MCG/KG/MIN. CARDIZEM AT 2.5 MG/HOUR.FENTANYL 200 MCG/ OG CLAMPED. RIGHT ARM WEEPING CLEAR YELLOW FLUID. HEAD OF BED ELEVATED 30 DEGREES
--- NOTE | 2018-11-13 09:00 | NUR ---
DR. UMANA HERE TALKED WITH ABOUT THOROCENTSIS AT BEDSIDE ON PATIENT. WESLEY BENITES FROM IS HERE TO ASSIST WITH PROCEDURE.
--- NOTE | 2018-11-13 09:30 | NUR ---
SEDATION TURNED OFF PER ORDERS OF DR. UMANA.
--- NOTE | 2018-11-13 10:15 | NUR ---
THORACENTESIS COMPLETED 1400 ML OF CLEAR TEA COLOR FLUID DRAINED AND TUBE PULLED. SPECIMENT TO THE LAB. PATIENT TOLERATED FAIR. MINIMAL BLEEDING FROM SITE. PRESSURE DRESSING APPLIED. CHEST X-RAY DONE. DR. UMANA TALKED WITH AFTER PROCEDURE
--- NOTE | 2018-11-13 10:30 | NUR ---
RESP RATE IN 30'S. DR. UMANA NOTIFIED. FENTANYL RESTARTED AT 300 MCG
--- NOTE | 2018-11-13 11:00 | NUR ---
AND SONS HERE UPDATE GIVEN TALKED WITH DR. KENDRICK QUESTIONS ANSWERS. WAITING ON DAUGHTER BEFORE MAKING ANY DECISIONS.
[2018-11-13 11:40] LABS: PROTEIN - BODY FLUID 1.5 G/DL
--- NOTE | 2018-11-13 12:00 | NUR ---
FENTANYL INCREASED DUE TO GUPPY BREATHING.VENT AT 100% TO MAINTAIN PULSE OX ABOVE 92%
--- NOTE | 2018-11-13 13:00 | NUR ---
REPOSITIONED, OPENS EYES AND SQUEEZES HANDS ON REQUEST. FENTANYL AT 300MCG. VASOPRESSIN AT 0.04 UNITS. DOBUTAMINE AT 5 MCG/KG/MIN. NS AT KVO HEAD OF BED ELEVATED 30 DEGREES. OG TO LOW INTERMITTENT SUCTION LIGHT GREEN DRAINAGE.
--- NOTE | 2018-11-13 14:00 | NUR ---
FENTANYL INCREASED TO 400 MCG DUE TO GUPPY BREATHING. SOME IMPROVEMENT NOTED.
--- NOTE | 2018-11-13 14:14 | NUR ---
AND DAUGHTER HERE UPDATE GIVEN.
--- NOTE | 2018-11-13 15:00 | NUR ---
FAMILY COMING IN AND OUT. EMOTIONAL SUPPORT PROVIDED. FENTANYL TURNED UP TO 400 MCG/ DUE HEAVY RESPIRATIONS.
--- NOTE | 2018-11-13 16:00 | NUR ---
FENTANYL INCREASED TO 500 MCG DUE TO GUPPY BREATH MINIMAL IMPROVEMENT NOTED.
--- NOTE | 2018-11-13 17:00 | NUR ---
AND SONS TALKING ABOUT TERMINMAL EXTUBATION. QUESTIONS ANSWERED
--- NOTE | 2018-11-13 17:30 | NUR ---
FAMILY- AND SON'S HAVE REQUEST TERMINAL EXTUBATION FOR PATIENT. DR. KENDRICK NOTIFIED. ORDERS RECEIVED.
--- NOTE | 2018-11-13 17:40 | NUR ---
MORPHINE 10 MG IV GIVEN. RESP THERAPY NOTIFIED
--- NOTE | 2018-11-13 18:10 | NUR ---
EXTUBATED NG PULLED. PATIENT TOOK A FEW BREATHS, THEN STOP BREATHING. FAMILY HERE. HERE
--- NOTE | 2018-11-13 18:20 | NUR ---
PATIENT HEART STOPPED. FAMILY AT BEDSIDE. DR. KENDRICK HERE PRONOUNCED PATIENT.
--- NOTE | 2018-11-13 19:28 | NUR ---
HOME HERE PICKED UP BODY. TALKED WITH FAMILY
--- NOTE | 2018-11-14 09:17 | MORECARE ---
CASE MANAGEMENT DISCHARGE SUMMARY PATIENT: FABIEN DOWNEY UNIT: [id number] ADM DATE: 10/14/18 AGE: 78 : 38 SEX: M ROOM/BED: D.2306 AUTHOR: HERMILO RIZO PHYSICIAN: REFERRING PHYSICIAN: ANIYA WINCHESTER MD DATE OF SERVICE: 11/14/18 Discharge Plan Patient Name: FBAIEN DOWNEY Facility: [facility]:[place] : 1940 Planned Disposition: Home Anticipated Discharge Date: Discharge Date: 11/13/2018 Expected LOS: Initial Reviewer: [email or web address] Initial Review Date: 10/17/2018 Generated: 11/14/18 10:17 am DCP- Discharge Planning Updated by [email or web address]: Mikayla Magaña on 11/09/18 2:[address] CM spoke with Dr. Winchester regarding potential d/c planning. Dr. Winchester stated until patient is able to get off pressers then [facility] will not accept patient. Dr. Winchester stated that he has a poor prognosis and he has spoke with family and at this time they are not considering DNR status. CM will continue to follow and assist as needed with discharge planning / needs. DCP- Discharge Planning Updated by [id number]: Mikayla Magaña on 10/17/18 2:[address] Patient Name: FABIEN DOWNEY Admission Status: ER Accout number: [id number] Admission Date: 10-14-2018 : 1940 Admission Diagnosis: Attending: Aniya Winchester Current LOS: 3 Anticipated DC Date: Planned Disposition: Home Primary Insurance: [facility] [employer] Discharge Planning Comments: CM met with patient at bedside after explaining CM role and obtaining verbal consent. Patient lives at home with his Rosana where he is independent with his care and plans to return there upon discharge. Patient feels this would be a safe discharge. CM discussed availability / needs of home health and medical equipment. Patient denies any discharge needs at this time. Patient states that he has House Call[facility]. Patient has [facility] MWF @1100 @ [facility] Patient states he will have his family drive him home upon discharge. CM will continue to follow and assist as needed with discharge planning / needs. Shift Production Associate: Mikayla Magaña DCPIA - Discharge Planning Initial Assessment Updated by [id number]: Mikayla Magaña on 10/17/18 3:32 pm * Is the patient Alert and Oriented? Yes * How many steps to enter\exit or inside your home? * PCP ePe * Pharmacy [facility] * Preadmission Environment Home with Family * ADLs Independent * Other Equipment WALKER, W/C , ROLLING WALKER * List name and contact numbers for known caregivers / representatives who currently or will assist patient after discharge: ROSANA DOWNEY - - [phone] * Verbal permission to speak to the caregivers and representatives has been obtained from the patient. Yes * Please name any agencies selected above. [facility] * Additional services required to return to the preadmission environment? No * Can the patient safely return to the preadmission environment? Yes * Has this patient been hospitalized within the prior 30 days at any hospital? No Last DP export: 11/09/18 2:13 p Patient Name: FABIEN DOWNEY Page [id number] at 0917 All edits/amendments must be made on the electronic document DICTATION DATE: 11/14/18916 ACCOUNTING MANAGER: BRONWYN 11/14/18916 RPT#: [id number] DC DATE:11/13/18 STATUS: DIS IN [facility] [address] [place] [address] END OF REPORT
--- NOTE | 2018-11-14 09:41 | NUR ---
Per CMS protocol, restraint report logged into data base.
[2018-11-21 16:10] LABS: AEROBE ID Final report (())
--- NOTE | 2019-01-04 11:17 | OP ---
PATIENT NAME: FABIEN DOWNEY MEDICAL RECORD: [id number] :36 LOCATION:[facility] D.2306 ADMISSION DATE:10/14/18 SURGEON: CANDIS BURROWS MD DATE OF OPERATION: 10/24/2018 PROCEDURES: 1. PTCA stent LAD. 2. Selective coronary angiography. 3. IFR LAD and left circumflex. PROCEDURE IN DETAIL: After informed consent was obtained and after a detailed description of risks, benefits as well as alternative therapies, the patient elected to proceed with angiogram and angioplasty. This left femoral area was prepped and draped in normal sterile fashion. Left femoral artery was cannulated via modified Seldinger technique with placement of 6-[place] sheath. All catheters exchanged through this sheath. FINDINGS: Left anterior descending has greater than 80% stenosis proximally. IFR was abnormal at 0.7. This was addressed with a 3.5 x 12 mm [place] stent. Result was 0% residual stenosis. Left circumflex has a stenosis proximally; however, IFR was in the normal range at 0.96. OVERALL IMPRESSION: Successful percutaneous transluminal coronary angioplasty stent of the left anterior descending going from greater than 80% initial stenosis to 0% residual. TRANSINT:[id number] Voice Confirmation ID: [id number] DOCUMENT ID: [id number] CANDIS BURROWS MD at 1117 CC: [id number] DICTATION DATE: 10/24/18 1244 OPERATIONS LABEL CLERK: 10/24/18 1319 DIS IN 11/13/18 [place] [address]
--- NOTE | 2019-01-06 15:28 | OP ---
PATIENT NAME: FABIEN DOWNEY MEDICAL RECORD: [id number] :36 LOCATION:.[facility] D.2306 ADMISSION DATE:10/14/18 SURGEON: CANDIS BURROWS MD DATE OF OPERATION: 10/24/2018 DATE OF SERVICE: 10/24/2018 PROCEDURES: 1. PTCA stent LAD. 2. IFR. 3. Selective coronary angiography. INDICATION: Angina and coronary artery disease. PROCEDURE PERFORMED: After informed consent was obtained and after detailed explanation of risks, benefits as well as alternative therapies, the patient elected to proceed with angiogram and angioplasty. The right femoral area was prepped and draped in normal sterile fashion. Right femoral artery was cannulated via modified Seldinger technique with placement of 6-[place] sheath. All catheters exchanged through this sheath. FINDINGS: The left anterior descending has 75% stenosis proximally. IFR was abnormal at 0.7. This was addressed with a 3.5 x 12 mm [place]. Result was 0% residual stenosis. OVERALL IMPRESSION: Successful percutaneous transluminal coronary angioplasty stent of the left anterior descending going from 75% initial stenosis to 0% residual. TRANSINT:[id number] Voice Confirmation ID: [id number] DOCUMENT ID: [id number] CANDIS BURROWS MD at 1528 CC: [id number] DICTATION DATE: 01/06/19 0944 MECHANICAL CAD DRAFTER: 01/06/19 1135 DIS IN 11/13/18 [id number] [place] [address]
== END 2018-11-13 18:20 | DRG 246 ==
LOC: D.ER 11:01 → D.M2 12:23 → D.CVICU 12:23 → D.ICU 12:23 → D.M2 10-18 09:21 → D.ICU 10-24 12:04 → D.CVICU 10-26 15:03 → D.ICU 11-11 15:34
PROVIDERS: Family Medicine; General Practice; Internal Medicine; Internal Medicine Hematology & Oncology; Internal Medicine Interventional Cardiology; Internal Medicine Nephrology; Internal Medicine Pulmonary Disease; ADMIT Internal Medicine Nephrology; ATTEND Internal Medicine Nephrology
PROC: B2111ZZ Fluoroscopy of Multiple Coronary Arteries using Low Osmolar Contrast (ICD-10-PCS; 2018-10-14)
PROC: B2151ZZ Fluoroscopy of Left Heart using Low Osmolar Contrast (ICD-10-PCS; 2018-10-14)
PROC: 4A023N7 Measurement of Cardiac Sampling and Pressure, Left Heart, Percutaneous Approach (ICD-10-PCS; 2018-10-14)
PROC: 027036Z Dilation of Coronary Artery, One Artery with Three Drug-eluting Intraluminal Devices, Percutaneous Approach (ICD-10-PCS; principal; 2018-10-14 13:20)
PROC: 027034Z Dilation of Coronary Artery, One Artery with Drug-eluting Intraluminal Device, Percutaneous Approach (ICD-10-PCS; 2018-10-24)
PROC: 027034Z Dilation of Coronary Artery, One Artery with Drug-eluting Intraluminal Device, Percutaneous Approach (ICD-10-PCS; 2018-10-24)
PROC: 5A09357 Assistance with Respiratory Ventilation, Less than 24 Consecutive Hours, Continuous Positive Airway Pressure (ICD-10-PCS; 2018-10-24)
PROC: 5A1935Z Respiratory Ventilation, Less than 24 Consecutive Hours (ICD-10-PCS; 2018-11-08)
PROC: 0BH17EZ Insertion of Endotracheal Airway into Trachea, Via Natural or Artificial Opening (ICD-10-PCS; 2018-11-08)
PROC: 0W993ZZ Drainage of Right Pleural Cavity, Percutaneous Approach (ICD-10-PCS; 2018-11-13)
DX: I21.4 Non-ST elevation (NSTEMI) myocardial infarction (principal); N18.6 End stage renal disease; J96.01 Acute respiratory failure with hypoxia; G93.41 Metabolic encephalopathy; J69.0 Pneumonitis due to inhalation of food and vomit; E87.2 Acidosis; E46 Unspecified protein-calorie malnutrition; J98.11 Atelectasis; B37.49 Other urogenital candidiasis; I13.2 Hypertensive heart and chronic kidney disease with heart failure and with stage 5 chronic kidney disease, or end stage renal disease; E11.22 Type 2 diabetes mellitus with diabetic chronic kidney disease; E87.5 Hyperkalemia; I10 Essential (primary) hypertension; E03.9 Hypothyroidism, unspecified; I48.91 Unspecified atrial fibrillation; R53.81 Other malaise; N40.0 Benign prostatic hyperplasia without lower urinary tract symptoms; E11.21 Type 2 diabetes mellitus with diabetic nephropathy; E11.40 Type 2 diabetes mellitus with diabetic neuropathy, unspecified; D63.1 Anemia in chronic kidney disease; Y95 Nosocomial condition; G47.33 Obstructive sleep apnea (adult) (pediatric); K21.9 Gastro-esophageal reflux disease without esophagitis; D69.6 Thrombocytopenia, unspecified; I50.9 Heart failure, unspecified